=== PATIENT | female | born 1980 | race Caucasian/White ===

== ENCOUNTER 2017-10-04 15:50 | Emergency (ER) | payer OTHER, SELFPAY ==
[2017-10-04 15:51] VITALS: BP 151/83; PULSE 83; RESP 16; TEMP 37.2; O2SAT 100; BMI 45.9
--- NOTE | 2017-10-04 16:06 | RAD_ITS ---
STUDY: X-RAY CHEST REASON FOR EXAM: Female, 37 years old. Chest pain. TECHNIQUE: Single AP portable view of the chest. COMPARISON: None. FINDINGS: Monitoring devices. The lungs are clear and expanded. There is no demonstrated pleural abnormality. Normal size heart. Normal mediastinum and sonia. Normal visualized pulmonary arteries. Normal visualized aortic arch and descending thoracic aorta. Normal visualized thoracic spine. Normal visualized ribs, clavicles, and shoulders. There is no demonstrated abnormality of the visualized soft tissue structures of the upper abdomen. RAD/Chest 1 View (Portable) IMPRESSION: Normal x-ray examination of the chest. Electronically Signed: Chirag Don MD at 17:01 EST , Service support ,
--- NOTE | 2017-10-04 16:06 | EKG12_ITS ---
Test Reason : CP Blood Pressure : / mmHG Vent. Rate : 066 BPM Atrial Rate : 066 BPM P-R Int : 162 ms QRS Dur : 084 ms QT Int : 392 ms P-R-T Axes : 049 034 043 degrees QTc Int : 410 ms Normal sinus rhythm with sinus arrhythmia Normal ECG Confirmed by SASHA PECK, LENORA ([id number]), news videotape editor PATRIC WU ([id number]) on 10/06/2017 10:29:39 AM Referred By: BRAXTON Confirmed By:LENORA BAEZ MD
[2017-10-04 16:07] VITALS: O2SAT 99
[2017-10-04] MEDS: Ketorolac 30 MG/ML Syringe IV (16:16)
[2017-10-04 16:21] LABS: Absolute Lymphocyte Count 2.76 X10^3/ul (0.83-4.51); Absolute Neutrophil Count 4.9 X10^3/uL (2.0-7.7); Basophil# 0.07 X10^3/uL; Basophil% 0.8 % (0-1); Eosinophil# 0.17 X10^3/uL; Hematocrit 40.1 % (37-47); Hemoglobin 13.4 g/dl (12.0-15.0); Lymphocyte # 2.76 X10^3/ul (4.0); Lymphocyte % 32.4 % (19-41); Mean Corp Hgb Conc 33.4 g/gl (32-36); Mean Corpuscular Hgb 29.2 pg (27.0-32.0); Mean Corpuscular Volume 87.4 fL (81-99); Mean Platelet Vol. 10.7 fl (6.2-12.0); Monocyte# 0.61 X10^3/uL; Monocyte% 7.2 % (0-10); Neutrophil # 4.88 X10^3/uL (2.7-7.7); Neutrophil % 57.4 % (47-70); POSITIVE COUNT NO; POSITIVE DIFFERENTIAL NO; POSITIVE MORPHOLOGY NO; Platelet Count 296 K/mm3 (150-450); RBC Distribution Width SD 40.4 fl (35.1-43.9); Red Blood Count 4.59 M/mm3 (4.2-5.4); White Blood Count 8.5 K/mm3 (4.4-11.0)
--- NOTE | 2017-10-04 16:36 | ED.DCSUM_ITS ---
- ER Visit Summary Date of Service: 10/04/17 Chief Complaint: Chest pain History of Present Illness: The patient is a 37 F she reports she has chest pain again 2 days ago. The first day it was a constant pressure that was increased with laying flat. She reports that yesterday was intermittent and lasted hours at a time. It was not related to exertion. She reports today it has been constant since she began work at 8:00 this morning. 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 She had no pain while rushing around to get the kids off to school. Patient does describes it as a substernal pressure. Is 9 out of 10 at worst and 7 out of 10 currently. It is worsened by long conversations and sitting down. It is unchanged with exertion. Is relieved by standing up. There is no radiation. No associated nausea, vomiting, diaphoresis, or shortness of breath. Physical Examination: Vitals: Stable. Afebrile. General: Well-nourished and well-developed. Head: Normocephalic atraumatic. Neck: Supple, no lymphadenopathy. No JVD. Nontender. Cardiovascular: Regular rate and rhythm. No murmurs. Respiratory: No respiratory distress. Clear to auscultation bilaterally. Abdominal: Soft, nontender, nondistended, normal bowel sounds. No guarding, rebound, or peritoneal signs. Back: Nontender. Extremities: Nontender, no edema. Skin: Normal color, no rash. Neurologic: Alert and oriented ?3. Cranial nerves II through XII are intact. Normal strength and sensation. Psych: Normal affect. Test Results: EKG is sinus at 66 with no acute changes. CBC is normal. 7 is normal. test is negative. Troponin is negative. Emergency Department Course and Treatment: Patient had an IV placed. She is given a dose of Toradol IV. She is resting comfortably. Treatment Plan: The patient's pain is very atypical and her EV score is 0. I do not think that this is cardiac in etiology. She is a suitable candidate for further outpatient evaluation. She will be discharged instructions to follow- up Dr. Aguiar in 1-2 days. Return to the emergency department for any worsening symptoms. Disposition: To home in improved and stable condition. Impression: 1. Atypical chest pain. 2. EV score of 0. This note was generated with Dragon dictation software. It may contain incorrect words, spelling, and punctuation that were not noted in review of the chart prior to signing ED Disposition - Plan for ED Patient: Chief Complaint: Chest Pain Instructions: ED Chest Pain Atypical Unkn Cause Referrals: Maryjo Aguiar MD [Primary Care Provider] - 1-2 Days if not improving
[2017-10-04 16:43] LABS: Anion Gap 7 (5-15); BUN 14 mg/dL (7-18); BUN/Creat Ratio 13.9 RATIO (10-20); Calcium,Total 9.1 mg/dL (8.5-10.1); Chloride 103 mmol/L (98-107); Creatinine, Serum 1.01 mg/dL (0.55-1.02); EST Glomerular Filtration Rate 65 mL/min (>60); Est Glom Filt Rate - Afr Amer 79 mL/min (>60); Estimated Creatinine Clearance 67.96 ml/min; Glucose 96 mg/dL (74-106); Potassium 3.6 mmol/L (3.5-5.1); Sodium Level 139 mmol/L (136-145)
[2017-10-04 16:55] LABS: Pregnancy, Serum, hCG Quali. NEGATIVE Negative (0-9 Nonpreg)
[2017-10-04 17:18] VITALS: PULSE 55; RESP 17; O2SAT 95
== END 2017-10-04 17:20 | disposition home or self-care (01) ==
LOC: ED 16:22
PROVIDERS: Emergency Provider Emergency Medicine; Family Provider Internal Medicine; PCP Internal Medicine
DX: R07.89 Other chest pain (principal); Z72.0 Tobacco use
CPT/HCPCS: 71045; 80048; 84484; 84703; 85025; 93005; 96374; 99284; A4216

== ENCOUNTER → 2018-12-31 08:04 | Outpatient (CLI) | payer OTHER, SELFPAY ==
[2018-12-31 10:12] LABS: Absolute Lymphocyte Count 2.02 X10^3/ul (0.83-4.51); Absolute Neutrophil Count 4.4 X10^3/uL (2.0-7.7); Basophil# 0.04 X10^3/uL; Basophil% 0.6 % (0-1); Eosinophil# 0.17 X10^3/uL; Eosinophils% 2.4 % (0-5); Hematocrit 38.4 % (37-47); Hemoglobin 12.7 g/dl (12.0-15.0); Lymphocyte # 2.02 X10^3/ul (4.0); Lymphocyte % 28.4 % (19-41); Mean Corp Hgb Conc 33.1 g/gl (32-36); Mean Corpuscular Hgb 28.9 pg (27.0-32.0); Mean Corpuscular Volume 87.5 fL (81-99); Mean Platelet Vol. 10.6 fl (6.2-12.0); Monocyte# 0.46 X10^3/uL; Monocyte% 6.5 % (0-10); Neutrophil # 4.42 X10^3/uL (2.7-7.7); Platelet Count 257 K/mm3 (150-450); RBC Distribution Width CV 12.6 % (11.6-14.6); RBC Distribution Width SD 40.7 fl (35.1-43.9); Red Blood Count 4.39 M/mm3 (4.2-5.4); White Blood Count 7.1 K/mm3 (4.4-11.0)
[2018-12-31 10:13] LABS: POSITIVE COUNT NO; POSITIVE DIFFERENTIAL NO; POSITIVE MORPHOLOGY NO
[2018-12-31 10:42] LABS: ALB/GLOB Ratio 1.1 RATIO (0.9-2.4); AST(SGOT) 9 U/L (15-37); Alanine Aminotransfer ALT/SGPT 23 U/L (13-56); Albumin, Serum 3.6 g/dL (3.2-5.0); Alkaline Phosphatase 52 U/L (45-117); Anion Gap 9 (5-15); BUN 17 mg/dL (7-18); BUN/Creat Ratio 18.3 RATIO (10-20); Calcium,Total 8.3 mg/dL (8.5-10.1); Chloride 110 mmol/L (98-107); Cholesterol 140 mg/dL (200); Creatinine, Serum 0.93 mg/dL (0.55-1.02); EST Glomerular Filtration Rate 71 mL/min (>60); Est Glom Filt Rate - Afr Amer 86 mL/min (>60); Globulin 3.3 g/dL (2.2-4.2); Glucose 109 mg/dL (74-106); High Density Lipoprotein 45 mg/dL; Potassium 3.8 mmol/L (3.5-5.1); Protein, Total 6.9 g/dL (6.4-8.2); Sodium Level 141 mmol/L (136-145); Triglycerides 89 mg/dL; Very Low Density Lipoprotein 18 mg/dL (5-40)
[2018-12-31 14:07] LABS: Hemoglobin A1c 5.9 % (4.2-6.3)
== END ==
PROVIDERS: Family Provider Internal Medicine; PCP Internal Medicine; Visit Provider Family Medicine
DX: Z00.00 Encounter for general adult medical examination without abnormal findings (principal); R73.09 Other abnormal glucose
CPT/HCPCS: 36415; 80053; 80061; 83036; 85025

== ENCOUNTER → 2021-11-12 12:29 | Outpatient (CLI) | payer BC, SELFPAY ==
--- NOTE | 2021-11-12 12:36 | BI_ITS ---
MAMMOGRAPHY - BILATERAL SCREENING REASON FOR EXAM: Female, 41 years old. Routine annual screening examination. PERTINENT HISTORY: Grandmother with breast cancer. Aunt with breast cancer. TECHNIQUE: Digital bilateral breast emilia (3D mammographic acquisition) in the CC and MLO projections. 2-D mediolateral oblique (MLO) and craniocaudad (CC) views of both breasts were obtained. CAD: Full Field Digital Mammography with Computer Added Detection was performed. COMPARISON: None. Baseline examination. FINDINGS: Breast Composition: The breasts are heterogeneously dense, which may obscure small masses. There are no dominant masses or suspicious calcifications. Benign appearing bilateral axillary lymph nodes. No other significant abnormalities are identified. BI/SCRN MAMM (CAD)W/EMILIA BILAT IMPRESSION: Negative screening mammogram. Yearly followup mammogram recommended. (A) ASSESSMENT CATEGORY: BIRADS Category 2: Benign. A letter regarding these results will be sent to the patient by the facility within 30 days. Approximately 10% of breast cancers are not detected by mammography. A normal mammogram should not delay biopsy of a clinically suspicious abnormality. [id number] Electronically Signed: Jersey Hawley MD at 13:34 EDT ,
== END ==
PROVIDERS: PCP Internal Medicine; Visit Provider Nurse Practitioner Women's Health
DX: Z12.31 Encounter for screening mammogram for malignant neoplasm of breast (principal)
CPT/HCPCS: 77063; 77067

== ENCOUNTER 2022-08-24 16:29 | Emergency (ER) | payer BC, SELFPAY ==
[2022-08-24 16:31] VITALS: BP 109/61; PULSE 68; RESP 14; TEMP 36.1; O2SAT 99; BMI 34.1
--- NOTE | 2022-08-24 16:38 | ED.RN ---
PT DECIDED SHE WOULD GO TO HER DR TOMORROW.
== END 2022-08-24 16:38 | disposition left against medical advice (07) ==
LOC: ED 16:43
PROVIDERS: PCP Internal Medicine
DX: Z53.21 Procedure and treatment not carried out due to patient leaving prior to being seen by health care provider (principal)

== ENCOUNTER → 2022-08-26 | Outpatient (CLI) | payer BC, SELFPAY ==
[2022-08-26 16:51] LABS: HIV - WCH Non-Reactive (Nonreactive); Hepatitis B Surface Antibody Non-Reactive; Hepatitis B Surface Antigen Non-Reactive (Nonreactive); Hepatitis C Antibody Non-Reactive (Nonreactive)
== END | disposition home or self-care (01) ==
LOC: MTLAB 13:01
PROVIDERS: PCP Family Medicine; Referring Provider Family Medicine; Visit Provider Family Medicine
DX: Z00.00 Encounter for general adult medical examination without abnormal findings (principal); X58.XXXA Exposure to other specified factors, initial encounter
CPT/HCPCS: 36415; 86703; 86706; 86803; 87340

== ENCOUNTER → 2024-12-30 | Outpatient (CLI) | payer OTHER, SELFPAY ==
--- NOTE | 2024-12-30 13:09 | VDLE_ITS ---
Reason For Study Reason For Study: LLE Pain / Swelling RIGHT LEFT CFV is compressible, spontaneous, phasic, competent GSV is normal. and demonstrates normal augmentation. CFV is compressible, spontaneous, phasic, competent, Procedure and demonstrates normal augmentation. This is a venous duplex using B-mode, color flow and FV is compressible, spontaneous, phasic, competent spectral Doppler. and demonstrates normal augmentation. Exam performed in department. POP V is compressible, spontaneous, phasic, competent The exam was diagnostic. and demonstrates normal augmentation. A preliminary report was called and/or faxed to [facility] is compressible. [facility] office. PTV is compressible. LT PerV is compressible. VL/Venous Duplex US, Unilateral Interpretation Summary Deep veins of the left lower extremity are patent and compressible segmentally. There is no evidence of left lower extremity deep vein thrombosis. Valvular competence appears intact within the p roximal deep venous system on the left . The left great saphenous vein appears patent and compressible segmentally. The right common femoral vein is patent and compressible . Ordering Physician: Loi Tran Referring Physician: Loi Tran Performed By: Kaushik Sanchez, RVT
== END | disposition home or self-care (01) ==
PROVIDERS: PCP Family Medicine; Referring Provider Family Medicine; Visit Provider Family Medicine
DX: M79.89 Other specified soft tissue disorders (principal)
CPT/HCPCS: 93971

== ENCOUNTER → 2025-01-31 | Outpatient (CLI) | payer OTHER, SELFPAY ==
[2025-01-31 15:19] LABS: Absolute Lymphocyte Count 2.23 X10^3/uL (0.83-4.51); Absolute Neutrophil Count 4.1 X10^3/uL (2.0-7.7); Basophil# 0.07 X10^3/uL; Eosinophil# 0.18 X10^3/uL; Eosinophils% 2.6 % (0-5); Hematocrit 42.2 % (37-47); Hemoglobin 14.2 g/dL (12.0-15.0); Lymphocyte # 2.23 X10^3/ul (0.83-4.51); Lymphocyte % 31.7 % (19-41); Mean Corp Hgb Conc 33.6 g/dL (32-36); Mean Corpuscular Volume 92.1 fL (81-99); Mean Platelet Vol. 10.9 fl (6.2-12.0); Monocyte# 0.48 X10^3/uL; Monocyte% 6.8 % (0-10); NRBC Flagged by Analyzer 0 % (0-5); Neutrophil # 4.05 X10^3/uL (2.7-7.7); Neutrophil % 57.6 % (47-70); Platelet Count 292 K/mm3 (150-450); RBC Distribution Width CV 12.3 % (11.6-14.6); RBC Distribution Width SD 41.4 fl (35.1-43.9); Red Blood Count 4.58 M/mm3 (4.2-5.4)
[2025-01-31 16:45] LABS: Hemoglobin A1c 5.5 % (<=5.6)
[2025-01-31 17:25] LABS: Erythrocyte Sedimentation Rate 7 mm/hr (0-30)
[2025-01-31 17:43] LABS: ALB/GLOB Ratio 1.6 RATIO (0.9-2.4); AST(SGOT) 20 U/L (<=31); Alanine Aminotransfer ALT/SGPT 26 U/L (<=34); Albumin, Serum 4.3 g/dL (3.5-5.0); Alkaline Phosphatase 55 U/L (35-104); Anion Gap 12 (5-15); BUN 15 mg/dL (4-19); BUN/Creat Ratio 16.1 RATIO (10-20); Carbon Dioxide 20.6 mmol/L (21.0-32.0); Chloride 103 mmol/L (98-108); Creatinine, Serum 0.93 mg/dL (0.70-1.20); EST Glomerular Filtration Rate 77 (>60); Globulin 2.7 g/dL (2.2-4.2); Glucose 92 mg/dL (70-99); Sodium Level 136 mmol/L (133-145); Total Bilirubin 0.61 mg/dL (0.00-1.30); Vitamin D,25 Hydroxy 40.1 ng/mL (30-100)
[2025-01-31 17:44] LABS: Rheumatoid Factor < 10.0 IU/mL (<15)
--- OUTSIDE RECORDS SUMMARY | 2025-01-31 19:17 | XMS RPT_ITS | CCD ---
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 FINAL DIAGNOSIS y2lzrUCpEEGmjRRsGRor UolrbiCaYQBgrTBfH2Cz qwfjANzbTX3mLJ6roNiy xFHnbSNnLRAhBuKdl8zf s607mVDrl7fiYSKNhpbf tYr2qMphP20ap5M5Jkmz U23djJAbZCL0XNIeYKCz tAPrQGRyPTU4MZQipHYo I8jcUWEqFX4jezbuPWdb GPueLMXtqBK0PRBktBVu F2HdNRXcIIaiVXFthrc9 AxTtOx3vgCTliIwaXJew YXJkXHBsYWluXGZzMjAg I2fqpuyveOZwnHCsvzJu v4McCCF6K5fbrG1bCtye YXIgLSBFcGlkZXJtYWwg uB4xcGYmpA4uOFQ0t8Aj CAX6qGI9axFgIiUjtMDr GPLsqvRWGg0rxtIbOA9i Mp3iSOJ4SYXdxy7= [facility] Work Phone: Gross Description w4qfoYUuLTCtaIORBHX1 HTIwRF4esQlqkDn8hInw YVYcwvO0qFLkTYomo2hc OZH1r1iaftLLDwvxNLQb AK8aRWfiRRSlLG3fTwOc XGRlZmYxXHBhcGVydzEy BwAoFKVwwIAscQO7CALd RA1pkaexLNwpVOghNRNk ijE2KHQqaGMoM6RaPXXj VU6zhjrzYMA7YQJWWiyj Kk3ceGAfjWekHkAtMjWd DKIdCZUmVHOht7depfRY wduewJn6jG6YMOMaV4Ny VC5Xs0akXOQnbVDnWHE0 XTqvc7plRPlpOBQ6AWUv FHKpEHVfPE2XMpFnVOc0 Ybe2BGW4OhH6RLe7UAFP XFIjQTB6EIPfQDAuYMw1 OTkgXFxuaCBcXHQgMSBc JIQmDDdejcZ4e0qcVEUk jWEdDGE4RFhtv6ewCEmd PGR4ZQVvYqTkRUYoVU1W AsIpMGz8Jmu3TBP4QkF8 ZOo1ZGERPjXtBfIgPyTb IkZcCKDcLZr0QEv2URwW NdZxMRVeHzx3FNG3CkC9 AIA3HrLzYMQwIwYoQVOj RNYhKPcqgJSyLS1whBvb HAKrSH5OVNYwHVylBSQb LrObBY7eN6xehRylF4rs huklB2MwRVHyc8YrJQh7 cmNoXHBhciANClxwYXJk JY9DHIBwQYqsMTb8ddZu EINoSeRmAQMpV41wy1KU m8JgLP0QZGm9zqReaoLA GhzuxsNmNRJaO9XlypNl PJmcORAuwl6ieAsvNDta XEPpDVMbr1FgZK81NZPy DGnzwSD2yUZypIOuIZam RF38KF0yXTIqqQ9mKU4x QEP2XmK1gFYnBN67kvS3 qAWtyLVgpZDxf1EtzR5d EJWbLZY2FFNeZEU9HUQz EfNbxP1jICnvJXSaxT3r j8OvQrBdOGKjON1gunZ2 ctU9ILKjUK4arCTtFNy4 uAXcFRLttu7xrU2zXALi mPlbrTz1XLUgPIOpxKJr CYCfACGzpPMnd7TulE3r LQSeXGJ5ROCmFOCfyGjx WB1fFXJ6fJXfMNOhyZ0m On87pJWgSQTvrZ5qBlLT qUNog6GsE8tcGZ2bQB0q cyByZXNlbWJsZSBhIGN5 e0GjQAhkUS8mbREbpXD9 mHYcFQ1wBPzlOUDxUAJa tMOyHGksKMVqA3Dde66m EQN5tzEqRHIwTTwdEYN5 GF1nb78koDFrgiSrPP1w FOF9bjqpHlBeTrGbR32q oB0yJ2KvXREmc5HoVCly IM8onN6oXxUXWUPrdEWs k5KycKS2bHElAAWvC9Vw u88qaCTwk3YhkIn2rWRv FOjvIE1kSIEpUHJkLJK8 WF9aFUOofbDEMrhmQXNm MCyXah5ixzTkmSChqI1m kNibvnKmYSIrv6YiSSLv LUQrF0cchqXsVW8cITXk zU7nWfrpOHWyYZMHgDSk yHSaPBCoNzqdR3pudqZq OD4rRKXINZY1PGZ4AKvu BHJgCBvgyESpSN4GAAOs SiAbYWObA3aiIFXgZH1D RkZTIDExLzExLzIwMjQg YFJ1OQVpSE9RLclmrQbc YtYybFLpQbJ5NTIroCRi HNF2VN6nxLftRNQlO3Hx Z1KggcE0YABuowROTbdr UNVnLE0OTDRkUhVzBPs1 [facility] Work Phone: Performing Lab j7eiwBYoAGSgbLAzHjPw TLOyQYCsf8geQJMhrJWu ZzEwMzNcZnRuYmpcdWMx KONbWvPmb1giw707uFAk n4lnAQBeFgI9qQIeGZMc jXOmF511HYWkEHpjr2yb g7GlTNFhcTBeh8R5LTKO vnbxfOv2xDedA66zm0W4 AnrfQ1hkVCRaRBAdV4Yp CD6cXATsXls4SFH9CSR2 WCVdQFVoN3JiII1aGEBj sYLaIKs4b6hhiVhxXTAz TYZ1b9rzKJugvyXjXT2r ay9fkCg3w2hyaeZcFNJq LLJdmBMXOKMzH0GomGtb Mq3rdQu5bNjiFpszXTH5 Wpm2LK9hia77til7iQne UENxrflpRkZ9QGrsKIQs axkdFPb1LAapRUMmfYH2 MADpjHMjQ7HmDOztWN0x mzp4CYK1JWdsKQEhOoD8 NDBcaGVhZGVyeTcyMFxm k071ZZY7LxEdVO1oA4Qa t5C4kS6liCInXXUjhPPw McRsAFVbjb0ytNQrZVqc w9NzBUO6tkR3iLJeeXAb QFZzIH38Dfqhd5YeDsrd t8TvV57wfSW5RDgfs3yj ED1uBjC9gjOxAJhxb8sa mT6xAbX4SQevBP6nKP6b ERNbvJ5lpbexTTOeGkIj issaOLUheHwxxaEnBx8m bNrzWDI5WQbqG1gkwQ9v WqV1DLytY9wdjA3sGZp5 DPuzaZQ9FYQqxE8wKL3s tdvjw4niSQoqMTnxIVYe scI4ehSdTGXlkWQjZ0Uf dM1jLVAqKR9mnoqta4gs FZE2SXonUVQxNJX8QcIa BXDjx1Cavda8LhRzr2Nc jVAjDUhwC33fg795WCSg glSkY0nmuEHpidooqOJn ywquFGlmceV0HCHjVAEd YWluXGYxXGZzMjBcbGFu ZzEwMzNcaGljaFxmMVxk ItMpPULyCChlD2pqXgFx QnIkSSWIlODnlp8voSzp GTreyJYwxAOxpAW9sZ4j THQfiiQepw6qIIXtbEWM xJC5DXfhpaDtK8ivpihf RLJ3MSPfNOS3U7jwUFTN dmUsIENsZXZlbGFuZCBP ZEO7POT6SBZtPYRERENa JEC4YAC7KCDnRSShrNTe XHBhclxwYXJkXHBsYWlu PSVsZZJuCvAtiCdfaF9a HsBsShKqAExzMI2mVHWg I1dbjSCpWGYvMWCjE0om YyTyaY3rkJntQIkqKuKw ZnMyMFxsdHJjaCBMYWJv ceP5m9C4DNignASlazua MVxmczIwXGxhbmcxMDMz OIrxU4zcErZtARDmjFqy YZugj5OqSEJvKJIjNuPn HCncTBH9d9H5FKacbIEj ctAKGiDYGN0fnEUeiurd NW8ZHmaivQEclldeGZbo czIyXGxhbmcxMDMzXGhp M1rdCwLgGUAcvVpiPHvf b7JfSFVqKDUpDbYhaHZr fQ== [facility] Work Phone: [facility] Work Phone: TOROOVon 07-01-2024 CNOV Office Visit (SWS) MELANIE LEVY ([id number]) 1980 F Date Time Provider Department 07/01/24 3:00 PM KRYSTINA JACQUES During your visit today, we recorded the following information about you: Davonte Abarca RN 07/03/2024 4:19 PM Signed UNIVERSAL PROTOCOL / SAFETY CHECKLIST Procedure to be Performed: Excision of skin cyst of left breast Sign In: A Moment of CARE was completed. Personnel directly involved with the procedure wore the appropriate PPE (Personal Protective Equipment). No special equipment needed. Patient/Surrogate Stated/Verified: PATIENT VERIFIED(optional for EMERGENT procedures): Patient name, Date of , Relevant allergies, and The intended procedure Time Out Communication: Intended patient and procedure match the source documents. Consent documented and matches the intended procedure. No relevant labs, photos, and/or imaging studies were applicable for review. Correct side/site marked and visible. Medications required for procedure verified. No fire risk assessment and interventions applicable. No implant(s) inserted. Sign Out: SIGN OUT (optional for EMERGENT procedures): All specimen containers correctly labeled. No instruments, equipment or retained foreign bodies applicable. Post-procedure follow-up management communicated and Plan of Care Visit completed when applicable. DOMINIQUE Ellis Rhonda, RN 07/01/2024 3:17 PM Signed The following instructions are important for you related to your office visit today with the [facility]. Instructions After SKIN EXCISION-SUTURES You can remove the dressing in five-seven days days. You should keep the wound dry. If the dressing becomes wet, with water, please change it. You may take acetaminophen or ibuprofen, as needed, for pain. If the dressing becomes soaked or had significant drainage, the dressing should be changed. If there is minor bleeding from this skin edge, you should hold pressure on the incision until the bleeding stops. If there is continued bleeding, you should contact our office immediately. If the wound shows signs of redness, inflammation, or purulent drainage, you should contact our office immediately. The wound should not be immersed in a pool, bathtub, or even hot tub. We prefer to check the incision and remove the stitches in our office when ready. Please make an appointment to return to our office in 7 days. Please do not remove the stitches yourself without approval from our office. If you note any additional difficulties, questions, or concerns, you should contact our office immediately @ [phone] and ask to be transferred to the General Surgery department. Krystina Jacques MD 07/03/2024 4:19 PM Signed Crystal presents for excision of infected sebaceous cyst of left breast area. PROCEDURE NOTE: Description of procedure: After informed consent was obtained, patient was brought to the procedure room. Appropriate time out protocol was followed. Patient was placed in the supine position. The site of the lesion was then cleansed with a sterile surgical skin preparation. Appropriate sterile surgical drapes were placed. The skin and subcutaneous tissues at the site were then infiltrated with local anesthetic. A skin incision was made at the site in an elliptical fashion to entirely incorporate the lesion and its pore opening with a 15 blade scalpel. The incision was carried down to the subcutaneous tissues. Dissection was done to separate the skin lesion from the surrounding subcutaneous tissues. The lesion was excised sharply down to the subcutaneous tissues. The lesion was 2 cm in size. The tissue was then removed and placed in formalin to be forwarded to pathology for analysis. Hemostasis was controlled by pressure. The skin edges were then reapproximated with interrupted 3-0 nylon suture and 3-0 vicryl (placed subdermally) in a simple fashion. Sterile dressing was applied. Patient tolerated procedure well. PLAN: Wound care instructions given by clinic staff. Patient to follow up for nursing visit for removal of sutures in one weeks. Office will call with results of pathology. Patient to return to clinic if any signs/symptoms of infection/etc. Patient acknowledges the above. Allergies As of Date: 07/01/2024 Noted Allergy Reaction LATEX 05/23/2005 2 - Rash Date Reviewed: 07/01/2024 Reviewed by: Davonte Abarca RN - Fully Assessed Reason for Visit: Procedure [88] Cmt: Excision of skin cyst of left breast. Primary Visit Diagnosis:Sebaceous cyst [L72.3] Order(s):SURGICAL PATHOLOGY [[id number]] Order #: [id number]. #:[id number] Prescriptions as of 07/03/2024 - psyllium seed, with sugar, (FIBER ORAL) Take by mouth. - Phentermine HCl 37.5 mg tablet Take 1 tablet by mouth daily before break (more content not included)... Normal [facility] SURGICAL PATHOLOGYon CASE REPORT Normal [facility] Comment on above: Order Comment: Natalia garcia Type: TISSUE SPECIMEN Ordering Facility: [facility] Address: [address] [place] [address] Result Comment: Surg [facility] Pathology Report Case: [id number] Authorizing Provider: Krystina Jacques MD Collected: 07/01/2024 03:11 PM Ordering Location: General Surgery Received: 07/01/2024 04:02 PM Pathologist: Geo Lemon MD, PhD Specimen: Cyst, Skin, Sebaceous, left breast Performed By: #### S #### [facility] CLIA [id number] [address] [place], [place] [address] [place] [address] [place] CLINICAL HISTORY sebaceous cyst Normal [facility] Comment on above: Order Comment: Gonzálezi men Type: TISSUE SPECIMEN Ordering Facility: [facility] Address: [address] [place] [address] Result Comment: Comm ent: left breast Performed By: #### S #### [facility] CLIA [id number] [address] [place] [address] [place] FINAL DIAGNOSIS Normal [facility] Comment on above: Order Comment: Speci men Type: TISSUE SPECIMEN Ordering Facility: [facility] Address: [address] [place] [address] Result Comment: Skin , left breast, excision: - Epidermal inclusion cyst, ruptured. AF/bs 07/02/2024 Performed By: #### S #### [facility] CLIA [id number] [address] [place] [address] [place] FINAL PERFORMING LAB Normal [facility] Comment on above: Order Comment: Speci men Type: TISSUE SPECIMEN Ordering Facility: [facility] Address: [address] [place] [address] Result Comment: Diag nostic interpretation performed at [facility], [address] [place] [address] CLIA# [id number] Cardiology Tech: Amado Owusu M.D. Performed By: #### S #### [facility] CLIA [id number] [address] [place] [address] [place] GROSS DESCRIPTION Normal [facility] Comment on above: Order Comment: Speci men Type: TISSUE SPECIMEN Ordering Facility: [facility] Address: [address] [place] [address] Result Comment: A. C yst, Skin, Sebaceous Received in formalin is an unoriented elliptical segment of skin and subcutaneous tissue measuring 1.0 x 0.4 x 2.2 cm. The skin surface demonstrates an irregular krueger-pink slightly elevated area measuring 0.4 x 0.4 cm, and extends to both margins. The specimen does resemble a cyst, is not ruptured. The specimen is sectioned to reveal a krueger soft area measuring 1.5 cm in greatest dimension. A promotions representative section is submitted in one cassette. Gross examination performed at [facility], [facility], [place] [address] FFS 07/01/2024 10:11 PM Performed By: #### S #### [facility] CLIA [id number] [address] [place] [address] [id number] [id number] [facility] CNOVon 06-24-2024 CNOV Office Visit (GENSWS) MELANIE LEVY ([id number]) 1980 F Date Time Provider Department 06/24/24 4:00 PM KRYSTINA JACQUES During your visit today, we recorded the following information about you: Temperature 97.7 degrees Krystina Jacques MD 06/25/2024 2:36 PM Signed Melanie presents for follow up of infected sebaceous cyst of left breast area. The area is no longer erythematous and the inflammation/indurat ion has greatly decreased in size. Will schedule patient for office procedure. I have counseled patient as to risks of procedure, including but not limited to: infection, bleeding, scar tissue, injury to any blood vessels/nerves, cosmetic deformity, complications of anesthesia - she understands and agrees to proceed. Allergies As of Date: 06/24/2024 Noted Allergy Reaction LATEX 05/23/2005 2 - Rash Date Reviewed: 06/24/2024 Reviewed by: Akanksha Doyle, DOMINIQUE - Fully Assessed Reason for Visit: Follow Up [171] Cmt: Left breast infected sebaceous cyst Primary Visit Diagnosis:Infected sebaceous cyst [L72.3, L08.9] Prescriptions as of 06/25/2024 - psyllium seed, with sugar, (FIBER ORAL) Take by mouth. - Phentermine HCl 37.5 mg tablet Take 1 tablet by mouth daily before breakfast for 90 days. - levonorgestrel (MIRENA) 21 mcg/24 hr (8 yrs) 52 mg IUD 1 Each by INTRAUTERINE route as directed. - metFORMIN ER (GLUCOPHAGE XR) 500 mg 24 hr tablet Take 2 tablets by mouth daily with dinner. Problem List As Of Date 06/24/2024 Noted Resolved Intractable migraine without aura and without s*07/22/2005 Class 2 obesity with body mass index (BMI) of 3*11/07/2017 Prediabetes [R73.03] 2020 Disposition: Return in about 1 week (around 07/01/2024). Follow-up and Disposition History for Encounter Date Provider Department Center 06/24/2024 [id number] JACQUES Randall Bernardo Encounter Status:Closed by KRYSTINA JACQUES on 06/25/24 [facility] CNOVon 06-17-2024 CNOV Office Visit (KELLY) MELANIE LEVY ([id number]) 1980 F Date Time Provider Department 06/17/24 4:00 PM KRYSTINA JACQUES During your visit today, we recorded the following information about you: Pulse Respiration Blood pressure Weight 70/minute 16/minute 112/76 103.4 kg Height 1.651 m Krystina Jacques MD 06/19/2024 3:40 PM Signed Melanie Levy 1980 CHIEF COMPLAINT: Follow Up HPI: The patient is a 43 year old female here for evaluation of infected sebaceous cyst of left breast. The patient states that the area is much less painful. It has decreased in size at least by half. It also appears less erythematous. Patient reports no drainage. PAST MEDICAL HISTORY Diagnosis Date Migraine without aura, without mention of intractable migraine without mention of status migrainosus 07/22/2005 Prediabetes 2020 PAST SURGICAL HISTORY Procedure Laterality Date LAPAROSCOPY SURG CHOLECYSTECTOMY 08/21/1998 Cholecystectomy, lap MIRENA IUD 04/24/2024 Insertion Current Outpatient Medications Medication Sig psyllium seed, with sugar, (FIBER ORAL) Take by mouth. amoxicillin-clavulan ate potassium (AUGMENTIN) 875-125 mg per tablet Take 1 tablet by mouth two times a day for 10 days. Phentermine HCl 37.5 mg tablet Take 1 tablet by mouth daily before breakfast for 90 days. levonorgestrel (MIRENA) 21 mcg/24 hr (8 yrs) 52 mg IUD 1 Each by INTRAUTERINE route as directed. metFORMIN ER (GLUCOPHAGE XR) 500 mg 24 hr tablet Take 2 tablets by mouth daily with dinner. No current facility-administere d medications for this visit. ALLERGIES: Latex REVIEW OF SYSTEMS: Denies fevers PHYSICAL EXAMINATION: General: The patient is 43 year old female, well nourished, well hydrated in no acute distress. The patient is oriented to time, place, and person. VITALS: Blood pressure 112/76, pulse 70, resp. rate 16, height 165.1 cm (5' 5), weight 103.4 kg (228 lb), SpO2 99%. Body mass index is 37.94 kg/m?. Left breast - skin lesion with no erythema and no drainage - much decreased in size Assessment IMPRESSION: infected sebaceous cyst - resolving infection PLAN: I have discussed the above with the patient. Will assess lesion again in a week. If infected has abated, will schedule for office surgery for excision of sebaceous cyst. No further antibiotics warranted. Patient acknowledges the above. I have answered all questions to the patient?s satisfaction and the patient has no further questions. I have confirmed and edited as necessary, the PFSH and ROS obtained by others. . Diagnoses: (L72.3, L08.9) Infected sebaceous cyst (primary encounter diagnosis) I spent a total of 15 minutes on the date of the service which included preparing to see the patient with review of any pertinent laboratory studies/radiological imaging/medical records, qbgt-hv-jlex patient care, obtaining oral medical history from the patient in this encounter, performing a medically appropriate examination, counseling and educating the patient/family/careg iver, and completing appropriate medical documentation. Krystina Jacques MD Allergies As of Date: 06/17/2024 Noted Allergy Reaction LATEX 05/23/2005 2 - Rash Date Reviewed: 06/17/2024 Reviewed by: Devi Salinas RN - Fully Assessed Reason for Visit: Follow Up [171] Primary Visit Diagnosis:Infected sebaceous cyst [L72.3, L08.9] Prescriptions as of 06/19/2024 - psyllium seed, with sugar, (FIBER ORAL) Take by mouth. - amoxicillin-clavulan ate potassium (AUGMENTIN) 875-125 mg per tablet Take 1 tablet by mouth two times a day for 10 days. - Phentermine HCl 37.5 mg tablet Take 1 tablet by mouth daily before breakfast for 90 days. - levonorgestrel (MIRENA) 21 mcg/24 hr (8 yrs) 52 mg IUD 1 Each by INTRAUTERINE route as directed. - metFORMIN ER (GLUCOPHAGE XR) 500 mg 24 hr tablet Take 2 tablets by mouth daily with dinner. Problem List As Of Date 06/17/2024 Noted Resolved Intractable migraine without aura and without s*07/22/2005 Class 2 obesity with body mass index (BMI) of 3*11/07/2017 Prediabetes [R73.03] 2020 Disposition: Return in about 1 week (around 06/24/2024). Follow-up and Disposition History for Encounter Date Provider Department Center 06/17/2024 [id number] JACQUES Encounter Status:Closed by KRYSTINA JACQUES on 06/19/24 [facility] CNOVon 06-10-2024 CNOV Office Visit (KELLY) MELANIE LEVY ([id number]) 1980 F Date Time Provider Department 06/10/24 10:45 AM KRYSTINA JACQUES During your visit today, we recorded the following information about you: Temperature Pulse Blood pressure Weight 97.4 degrees 82/minute 106/69 103.3 kg Height 1.651 m Davonte Abarca RN 06/10/2024 10:47 AM Signed REVIEW OF SYSTEMS: General: The patient denies fatigue, denies weight loss, denies weight gain, denies feeling hot, and denies feelings of cold. Eyes: The patient denies glaucoma, denies eye injury/surgery, wears glasses or contacts. Ear/Nose/Throat: The patient NOTES allergies, denies hayfever, denies ear infections, and denies bloody noses. Cardiovascular: The patient denies chest pain, denies heart disease, denies high blood pressure,denies cardiac stent, denies prior heart attack, denies irregular heart beat, denies high cholesterol, denies poor circulation, denies heart failure, other cardiac issues, denies claudication, denies cold feet, denies peripheral arterial stent. Respiratory: The patient denies tuberculosis, denies pneumonia, denies frequent cough, denies pulmonary embolism, denies shortness of breath, and denies coughing up blood. Gastrointestinal: The patient denies difficulty swallowing, denies acid reflux, denies ulcers, denies vomiting, denies jaundice/hepatitis, denies gallbladder problems, denies black or tarry stools, denies hemorrhoids, denies bleeding from rectum, denies diverticulitis, denies constipation, denies diarrhea, denies loss of stool control, and denies hernias. Kidney/Bladder: The patient denies kidney stones, denies urine infections, and denies bloody urine. Skin: The patient denies a history of skin cancer, denies bleeding/changing moles, and denies a history of skin rash. Neurologic: The patient denies a history of epilepsy/convulsions , NOTES headaches, denies head/spinal injuries, and denies stroke/TIA. Psychiatric: The patient denies psychiatric medications, denies depression, and denies voices, denies substance abuse. Endocrine: The patient denies thyroid disorders, NOTES diabetes, and denies hormonal problems. Hematologic: The patient denies a history of bruising, denies bleeding, and denies anemia, denies blood clots. Infections: The patient denies a history of measles and mumps, denies rheumatic fever, and denies sexually transmitted diseases. Musculoskeletal: The patient denies back pain/injury, denies back problems, denies sciatica, denies knee/foot trouble, denies arthritis, or denies gout. When was patient's last Mammogram screening? 04/24/2024, 06/07/2024 Last Colonoscopy: None DOMINIQUE Ellis, Krystina Basilio MD 06/11/2024 3:03 PM Signed Melanie Maricarmen Levy 1980 REFERRING PHYSICIAN: Marty Patterson APRN.BE[employer] CHIEF COMPLAINT: Consult (Left breast abscess vs. Cyst. ) HPI: The patient is a 43 year old female presents with left breast superficial abscess. She was noted to have a sebaceous cyst in the area by mammograms/US of left breast in April of this year. Around 06/05/2024, she noted increasing pain/swelling/rednes s in the area. She notes no drainage. She was started on Keflex and notes slightly improved symptoms. She denies fevers. She denies diabetes, but admits to cigarettes use. PAST MEDICAL HISTORY Diagnosis Date Migraine without aura, without mention of intractable migraine without mention of status migrainosus 07/22/2005 Prediabetes 2020 PAST SURGICAL HISTORY Procedure Laterality Date LAPAROSCOPY SURG CHOLECYSTECTOMY 08/21/1998 Cholecystectomy, lap MIRENA IUD 04/24/2024 Insertion Current Outpatient Medications Medication Sig cephALEXin (KEFLEX) 500 mg capsule Take 1 capsule by mouth four times daily for 7 days. Phentermine HCl 37.5 mg tablet Take 1 tablet by mouth daily before breakfast for 90 days. levonorgestrel (MIRENA) 21 mcg/24 hr (8 yrs) 52 mg IUD 1 Each by INTRAUTERINE route as directed. metFORMIN ER (GLUCOPHAGE XR) 500 mg 24 hr tablet Take 2 tablets by mouth daily with dinner. No current facility-administere d medications for this visit. ALLERGIES: Latex PERSONAL HISTORY: Social History Tobacco Use Smoking status: Every Day Current packs/day: 0.00 Types: Cigarettes Last attempt to quit: 10/16/2016 Years since quittin.6 Smokeless tobacco: Never Tobacco comments: one pack a week/ about 8 per day. Vaping Use Vaping status: Former Substances: Nicotine, Flavoring Devices: Pre-filled or refillable cartridge Substance Use Topics Alcohol use: Yes Alcohol/week: 3.0 standard drinks of alcohol Types: 2 Cans of beer, 1 Shots of liquor per week Drug use: Never FAMILY HISTORY Problem Relation Age of Onset Obesity Mother other (dysplastic nerves [Other]) Father and one sister Obesity Father Obesi (more content not included)... Normal [facility] CNOVon 06-07-2024 CNOV Office Visit (OBGYWM) MELANIE LEVY ([id number]) 1980 F Date Time Provider Department 06/07/24 9:15 AM MARTY PATTERSON OBCESARWOmi During your visit today, we recorded the following information about you: Pulse Respiration Blood pressure Weight 88/minute 14/minute 110/72 100.7 kg Marty Patterson APRN.BEER MAKER 06/07/2024 10:03 AM Signed Linen Room Supervisor offered: Patient declines. Melanie Levy presents today for IUD check. She had a Mirena placed on 04/24/2024. She has had spotting and cramping since placement. Her cramping is sometimes as severe as a 7/10. She also notes a breast lump today that she's concerned about. She has breast imaging on 04/24/24 for it. Ultrasound showed: The 0.8 cm x 0.6 cm x 0.6 cm oval lesion within the skin of the left breast resembles a sebaceous cyst and is benign. The cyst resolved, but then resurfaced 2 days ago. It is painful and red. 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 As applicable, any other physician, advance practice provider, medical student, or other health professional student that will be observing or involved in the sensitive examination for educational or training purposes was discussed with the Patient or Authorized Superintendent Refuse Disposal. The Patient or Authorized Superintendent Refuse Disposal has agreed to proceed with the sensitive examination. (Sensitive examination includes inspection and/or palpation of the breasts, pelvis, prostate and anorectal regions). PHYSICAL EXAMINATION: BP 110/72 Pulse 88 Resp 14 Wt 222 lb (100.7kg) SpO2 96% ABDOMEN:soft, non-tender, no masses, no hepatosplenomegaly, and no lymphadenopathy EXTERNAL GENITALIA: Normal genitalia and Bartholins, Urethra, Sken'e normal CERVIX: smooth, no lesions. IUD strings visible. UTERUS: normal size, regular, non-tender, and freely mobile ADNEXA: negative for tenderness or masses BREAST: + 4 cm erythematous firm lump to inner left breast, warm, edematous IMPRESSION/PLAN: IUD likely correctly positioned. With severe cramping at times, recommend pelvic ultrasound to confirm. Ordered. Breast abscess - ICD9: 611.0, ICD10: N61.1 - Patient is going out of town to [place] this afternoon - Discussed signs of worsening infection: increasing redness, swelling, pain, warmth - recommend going to ER should this occur - Recommend going to ER with fever or chills - Alternative Tylenol and Ibuprofen for pain, warm compresses - Rx for Keflex sent - Breast imaging ordered, follow up with general surgery - Keep area clean and dry - Discussed consideration of going to ER today. Patient declines. Recommend watching area closely and to go to nearest ER in [place] with worsening signs or symptoms. Marty Patterson APRN.IBIS Medical Decision Making: Problems: Low: Acute, uncomplicated illness or injury and 2+ self-limited or minor problems Data: Unique test(s) ordered: 3+ Risk: Low: Low risk from testing/treatment Moderate: Drug management Medical Decision Making Level: 4 - Moderate Francisca Christopher LPN 06/07/2024 9:17 AM Signed 96 Allergies As of Date: 06/07/2024 Noted Allergy Reaction LATEX 05/23/2005 2 - Rash Date Reviewed: 06/07/2024 Reviewed by: Marty Patterson APRN.BEER MAKER - Fully Assessed Primary Visit Diagnosis:Surveillan ce of previously prescribed intrauterine contraceptive device [Z30.431] Other Visit Diagnosis:Breast abscess [N61.1] Order(s):PELVIC US WHI [5081231] Order #: [id number]: 1 FUTURE MICHAEL DIAGNOSTIC LEFT [2233162] Order #: [id number] FUTURE US BREAST LTD LEFT [[id number]] Order #: [id number] FUTURE CONSULT TO GENERAL SURGERY [9011] Order #: [id number]: 1 FUTURE cephALEXin (KEFLEX) 500 mg capsuleTake 1 capsule by mouth four times daily for 7 days.Disp: 28 capsuleRfl: 0 Prescriptions as of 06/07/2024 - cephALEXin (KEFLEX) 500 mg capsule Take 1 capsule by mouth four times daily for 7 days. - Phentermine HCl 37.5 mg tablet Take 1 tablet by mouth daily before breakfast for 90 days. - levonorgestrel (MIRENA) 21 mcg/24 hr (8 yrs) 52 mg IUD 1 Each by INTRAUTERINE route as directed. - metFORMIN ER (GLUCOPHAGE XR) 500 mg 24 hr tablet Take 2 tablets by mouth daily with dinner. Problem List As Of Date 06/07/2024 Noted Resolved Intractable migraine without aura and without s*07/22/2005 Class 2 obesity with body mass index (BMI) of 3*11/07/2017 Prediabetes [R73.03] 2020 Visit Notes: >> Francisca Christopher LPN MonJun 07, 2024 9:16 AM Status: Signed 96 Prescriptions ordered this encounter Disp Refills Start End AMOXICILLIN 875 MG-POTASSIUM CLAVULA* 14 t* 0 06/07/2024 06/07/2024 Route: ORAL Sig: Take 1 tablet by mouth two times a day for 7 days. FOR 7 DAYS. CEPHALEXIN 500 MG CAPSULE 28 c* 0 06/07/2024 06/14/2024 Route: ORAL Sig: Take 1 capsule by mouth fou (more content not included)... Normal [facility] CNOVon 05-23-2024 CNOV Office Visit (JESUS MANUELM) MELANIE LEVY ([id number]) 1980 F Date Time Provider Department 05/23/24 2:00 PM SARA BERGERON During your visit today, we recorded the following information about you: Pulse Blood pressure Weight 72/minute 122/74 103.9 kg Sara Bergeron APRN.BEER MAKER 05/23/2024 8:27 PM Signed Some documentation from previous visit of 04/03/2024 was copied and pasted, documentation has been reviewed and edited as necessary for today's visit. Patient Summary: Melanie is a 43 year old Female who presents for follow-up evaluation of obesity/weight management to treat and prevent related co-morbidities. In our previous visits we have discussed lifestyle intervention including a nutrition recommendations and physical activity optimization. Her last office visit was 1.5 months ago. Assessment/plan from last visit: -Metformin ER 500 mg - 1 gm with dinner Interval History PT specifies the following items as new or significant updates since the last appointment: - is aware that she is eating smaller portions and less snacking after dinner Weight loss since last vist: 2 lb Date: Weight: BMI: Medications: 05/23/2024 229 lb 39.31 phentermine 37.5 04/03/2024 229 lb 39.31 metformin ER 1 gm 02/15/2024 231 lb 39.44 metformin ER 500 mg 01/16/2024 228 lb 38.93 WC: 42 in 5% weight loss = 217 lbs, 10% weight loss = 206 lbs Anti-obesity medications: metformin Benefit:less hunger, a little increased fullness Adverse effects: none Weight promoting medications: none Previous Diet (initial appointment): Low carb during the work week. WE - up late morning. Lunch first meal but same. Awake - 0515 0600 Diet Coke B - 8-9 am meat and cheese snacks or jerky or occasionally PB crackers S - none L - 1200 meat and cheese with raw veg or salad with meat/Ranch dressing S - no D - 6-8 pm Salad with meat or grilled chicken and broccoli or pizza rolls or chicken nuggets if nothing prepared or easy to prepare Eats out on WE - Nauruan, pizza, Citizen Of [place] S - occasional 8-10 pm chips/dip or popcorn Fluids - Diet Coke, occasional water. Alcohol one WE night - whiskey or coconut rum or cider beer Bedtime - Quality of diet: 24hr recall suggests somewhat healthy diet. Characterization of diet:Structured, excessive cravings, and evening snacking. 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:lack of satiety, mindlessness , and boredom Eating Disorder no Cravings: chips and dip Dietary changes: [id number] B - 9 am 30 gm protein shake WE - SKIP S - occasionally almonds or cheese L - 12-1 pm 30 gm protein shake or meat cheese, raw veg with Ranch or WE left overs protein with vegetables, usually raw or steamed, sometimes small amount rice or potato S - none D - [id number] fresh protein with salad or low-carb veg/sometimes baked potato/small amount pasta Eating out - Nauruan grilled chicken/shrimp with lettuce, sour cream, chips and salsa or burger with 1/2 bun or protein with side salad with Ranch and sometimes 1/2 baked potato with skin S - none Fluids - Diet Coke, occasional water. 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 no Work-related activity:Sedentary. Gym Membership: no Activity Tracker: yes Stress: increased with traveling for work during April. May should be more calm. Sleep: varies Duration: 4 hrs once a week - 8 hours. FISH NO ; CPAP NO Estimated Creatinine Clearance: 98.9 mL/min (based on SCr of 0.85 mg/dL). PAST MEDICAL HISTORY Diagnosis Date Migraine without aura, without mention of intractable migraine without mention of status migrainosus 07/22/2005 Prediabetes 2020 Current Outpatient Medications Medication Sig Dispense Refill levonorgestrel (MIRENA) 21 mcg/24 hr (8 yrs) 52 mg IUD 1 Each by INTRAUTERINE route as directed. 1 Each 0 metFORMIN ER (GLUCOPHAGE XR) 500 mg 24 hr tablet Take 2 tablets by mouth daily with dinner. 180 tablet 1 No current facility-administere d medications for this visit. 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 Last 14 BP Last 14 Encounter BP Readings: Date: BP: 05/23/2024 122/74 04/24/2024 106/76 04/03/2024 114/62 03/15/2024 108/64 02/15/2024 112/72 01/16/2024 104/68 12/04/2022 122/70 10/04/2017 110/64 11/14/2016 116/62 07/26/2016 110/68 11/05/2010 80/40 09/04/2010 84/60 07/29/2008 110/70 09/13/2007 104/56 P (more content not included)... 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 Melanie presents today for IUD insertion for contraception. No LMP recorded. (Menstrual status: Drug Induced Amenorrhea). GC/chlamydia: Negative on 03/15/24 test: negative Side effects including irregular bleeding were discussed with the patient. The patient understands that it should be removed in 8 years or sooner if the patient desires a . IUD source: office provided [facility]: [id number] IUD lot: [id number] Exp date: 03/2026 UNIVERSAL PROTOCOL / SAFETY CHECKLIST Procedure to be Performed: Mirena Insertion Sign In: A Moment of CARE was completed. Personnel directly involved with the procedure wore the appropriate PPE (Personal Protective Equipment). Patient/Surrogate Stated/Verified: PATIENT VERIFIED(optional for EMERGENT procedures): Patient name, Date of , Relevant allergies, and The intended procedure Time Out Communication: Intended patient and procedure match the source documents. Consent documented and matches the intended procedure. Sign Out: SIGN OUT (optional for EMERGENT procedures): No specimen collected. All instruments, equipment, possible retained foreign bodies accounted for. Post-procedure follow-up management communicated and Plan of Care Visit completed when applicable. The cervix was prepped with betadine. The uterus sounded to 9 cm and the uterus is Anteverted. Using sterile technique, the first Mirena IUD was inserted and immediately expelled. A second Mirena IUD was inserted without difficulty and the string was cut to 3 cm from the external os of the cervix. Patient tolerated procedure well. PLAN: Patient was advised to observe for signs and symptoms of infection including but not limited to fever, malodorous vaginal discharge and/or pain. The patient was told to check the string monthly for accurate placement. Bleeding expectations were reviewed. Follow up in one month. Marty Patterson APRN.Sirisha Huynh LPN 04/24/2024 3:32 PM Signed POST IUD INSTRUCTIONS You may have irregular bleeding during the first 3 months of use. You may have mild-severe cramping for the next 48 hours. You may use over the counter medication (Motrin, Tylenol) as needed. Your IUD must be removed or replaced based on the following table: IUD Type Removed or replaced within: Shantelle 3 years Kyleena 5 years Mirena 8 years Liletta 8 years Paragard 10 years Call the office for signs/symptoms of infection such as severe cramping, fever, or unusual bleeding. Check for string placement as instructed by your doctor. If you have any additional questions, please contact the office. Referring Provider: SARA BERGERON [[id number]] Allergies As of Date: 04/24/2024 Noted Allergy Reaction LATEX 05/23/2005 2 - Rash Date Reviewed: 04/24/2024 Reviewed by: Marty Patterson APRN.BEER MAKER - Fully Assessed Reason for Visit: Insertion Of IUD [291] Primary Visit Diagnosis:Encounter for IUD insertion [Z30.430] Order(s):[] levonorgestrel 21 mcg/24 hr (8 yrs) 52 mg 1 Each intrauterine device (MIRENA)Disp: Rfl: levonorgestrel (MIRENA) 21 mcg/24 hr (8 yrs) 52 mg IUD1 Each by INTRAUTERINE route as directed.Disp: 1 EachRfl: 0 UA DIP,URINE HCG (POC) [9048612] Order #: [id number]. #:[id number] Prescriptions as of 04/24/2024 - levonorgestrel (MIRENA) 21 mcg/24 hr (8 yrs) 52 mg IUD 1 Each by INTRAUTERINE route as directed. - metFORMIN ER (GLUCOPHAGE XR) 500 mg 24 hr tablet Take 2 tablets by mouth daily with dinner. Problem List As Of Date 04/24/2024 Noted Resolved Intractable migraine without aura and without s*07/22/2005 Class 2 obesity with body mass index (BMI) of 3*11/07/2017 Prediabetes [R73.03] 2020 Other instructions from your clinician: POST IUD INSTRUCTIONS You may have irregular bleeding during the first 3 months of use. You may have mild-severe cramping for the next 48 hours. You may use over the counter medication (Motrin, Tylenol) as needed. Your IUD must be removed or replaced based on the following table: IUD Type Removed or replaced within: Shantelle 3 years Kyleena 5 years Mirena 8 years Liletta 8 years Paragard 10 years Call the office for signs/symptoms of infection such as severe cramping, fever, or unusual bleeding. Check for string placement as instructed by your doctor. If you have any additional questions, please contact the office. Prescriptions ordered this encounter Disp Refills Start End LEVONORGESTREL 21 MCG/24 HR (UP TO 8* 04/24/2024 04/24/20 (more content not included)... Normal [facility] DBT Breast - bilateral diagn ostic for implanton 04-24-2024 * * *Final Report* * * DATE OF EXAM: Apr 24 2024 3:00PM WRW 0627 - [facility] MARGARETH W EMILIA JOHN PAUL / PROCEDURE REASON: Mass of upper inner quadrant of left breast * * * * Physician Interpretation * * * * RESULT: #[id number] - [facility] MARGARETH W EMILIA JOHN PAUL BILATERAL DIGITAL DIAGNOSTIC MAMMOGRAM TOMOSYNTHESIS WITH CAD: 04/24/2024 HISTORY: Mass Of Upper Inner Quadrant Of Left Breast/ thickened area by cleavalge left medial, not painful, has decreased in prominence /priors available for comparison. RESULT: TECHNIQUE: The study was acquired using full field digital technology and interpreted from soft copy. Digital Breast Tomosynthesis (DBT) images were obtained and used to assist in the interpretation of this examination. Current study was also evaluated with a Computer Aided Detection (CAD). No prior exams were available for comparison. The breasts are heterogeneously dense, which may obscure small masses. There is an oval asymmetry in the left breast middle depth medial region seen on the craniocaudal view only. This correlates as palpated. No other significant masses, calcifications, or other findings are seen in either breast. DIVISION OF RADIOLOGY Provider, [facility] - 04/24/2024 * * *Final Report* * * DATE OF EXAM: Apr 24 2024 3:00PM WRW 0627 - [facility] ANTONG W EMILIA JOHN PAUL / PROCEDURE REASON: Mass of upper inner quadrant of left breast * * * * Physician Interpretation * * * * RESULT: #[id number] - [facility] DIAG W EMILIA JOHN PAUL BILATERAL DIGITAL DIAGNOSTIC MAMMOGRAM TOMOSYNTHESIS WITH CAD: 04/24/2024 HISTORY: Mass Of Upper Inner Quadrant Of Left Breast/ thickened area by cleavalge left medial, not painful, has decreased in prominence /priors available for comparison. RESULT: TECHNIQUE: The study was acquired using full field digital technology and interpreted from soft copy. Digital Breast Tomosynthesis (DBT) images were obtained and used to assist in the interpretation of this examination. Current study was also evaluated with a Computer Aided Detection (CAD). No prior exams were available for comparison. The breasts are heterogeneously dense, which may obscure small masses. There is an oval asymmetry in the left breast middle depth medial region seen on the craniocaudal view only. This correlates as palpated. No other significant masses, calcifications, or other findings are seen in either breast. IMPRESSION IMPRESSION: INCOMPLETE: NEED ADDITIONAL IMAGING EVALUATION The oval asymmetry in the left breast is indeterminate. An ultrasound is recommended. Huseyin corona/juan:04/24/2024 15:17:51 Gear Design Engineer(s): RT Clint(R)(M), [facility] Mammogram BI-RADS: Category 0: Incomplete: Need Additional Imaging Evaluation Multiple national specialty organizations have released breast cancer screening guidelines for women at average risk for developing breast cancer - guidelines that are based on both evidence and opinion, yet differ on when to start and how often to screen for breast cancer. With representation from Breast Imaging, Internal Medicine, Women's Health, Family Medicine, and Medical/Surgical Oncology, the [facility] has carefully reviewed the data and reached the following consensus: 1) All women should engage in shared decision-making with their providers to decide when to start and how often to screen; 2) All women should have the opportunity to start screening mammography at age 40; 3) For women ages 45-55, we recommend annual screening mammograms; 4) For women ages 55 and over, we support both the transition from an annual to a biennial interval if this aligns more with patient's values and preferences, or continuation with annual screening; 5) All women should discuss with their providers when to stop screening mammograms. Civil Cad Designer: Juan Transcribe Date/Time: Apr 24 2024 2:31P Dictated by: HUSEYIN RIZO MD This examination was interpreted and the report reviewed and electronically signed by: HUSEYIN RIZO MD on Apr 24 2024 3:17PM EST [facility] DBT Breast - bilateral diagn ostic for implantOrdered By: [facility] Provider on 04-24-2024 [facility] DIAG W EMILIA BILon 2023 MICHAEL DIAG W EMILIA JOHN PAUL * * *Final Report* * * DATE OF EXAM: Apr 24 2024 3:00PM WRW 0627 - MICHAEL DIAG W EMILIA JOHN PAUL / PROCEDURE REASON: Mass of upper inner quadrant of left breast * * * * Physician Interpretation * * * * RESULT: #[id number] - [facility] DIAG W EMILIA JOHN PAUL BILATERAL DIGITAL DIAGNOSTIC MAMMOGRAM TOMOSYNTHESIS WITH CAD: 04/24/2024 HISTORY: Mass Of Upper Inner Quadrant Of Left Breast/ thickened area by cleavalge left medial, not painful, has decreased in prominence /priors available for comparison. RESULT: TECHNIQUE: The study was acquired using full field digital technology and interpreted from soft copy. Digital Breast Tomosynthesis (DBT) images were obtained and used to assist in the interpretation of this examination. Current study was also evaluated with a Computer Aided Detection (CAD). No prior exams were available for comparison. The breasts are heterogeneously dense, which may obscure small masses. There is an oval asymmetry in the left breast middle depth medial region seen on the craniocaudal view only. This correlates as palpated. No other significant masses, calcifications, or other findings are seen in either breast. IMPRESSION: INCOMPLETE: NEED ADDITIONAL IMAGING EVALUATION The oval asymmetry in the left breast is indeterminate. An ultrasound is recommended. Huseyin corona/juan:04/24/2024 15:17:51 Gear Design Engineer(s): Maggy Snider RT(R)(M), [facility] Mammogram BI-RADS: Category 0: Incomplete: Need Additional Imaging Evaluation Multiple national specialty organizations have released breast cancer screening guidelines for women at average risk for developing breast cancer - guidelines that are based on both evidence and opinion, yet differ on when to start and how often to screen for breast cancer. With representation from Breast Imaging, Internal Medicine, Women's Health, Family Medicine, and Medical/Surgical Oncology, the [facility] has carefully reviewed the data and reached the following consensus: 1) All women should engage in shared decision-making with their providers to decide when to start and how often to screen; 2) All women should have the opportunity to start screening mammography at age 40; 3) For women ages 45-55, we recommend annual screening mammograms; 4) For women ages 55 and over, we support both the transition from an annual to a biennial interval if this aligns more with patient's values and preferences, or continuation with annual screening; 5) All women should discuss with their providers when to stop screening mammograms. Civil Cad Designer: Juan Transcribe Date/Time: Apr 24 2024 2:31P Dictated by: HUSEYIN RIZO MD This examination was interpreted and the report reviewed and electronically signed by: HUSEYIN RIZO MD on Apr 24 2024 3:17PM EST [id number] Normal [facility] BREAST LTD LTon 04-24 [facility] BREAST LTD LT * * *Final Report* * * DATE OF EXAM: Apr 24 2024 3:09PM WRU 0593 - [facility] BREAST LTD LT / PROCEDURE REASON: Mass of upper inner quadrant of left breast * * * * Physician Interpretation * * * * #[id number] - [facility] [employer] BREAST LTD LT LIMITED ULTRASOUND OF LEFT BREAST: 04/24/2024 HISTORY: Mass Of Upper Inner Quadrant Of Left Breast. RESULT: Comparison is made to exam dated: 04/24/2024 mammogram - [facility]. Color flow and real-time ultrasound of the left breast 8-10 o'clock region were performed. Brown scale images of the real-time examination were reviewed. There is a benign 0.8 cm x 0.6 cm x 0.6 cm oval lesion with a circumscribed margin within the skin of the left breast at 9 o'clock 12 cm from the nipple. This oval lesion is hypoechoic with internal echoes. This correlates as palpated and with mammography findings. Color flow imaging demonstrates that there is no vascularity present. IMPRESSION: BENIGN There is no sonographic evidence of malignancy. The 0.8 cm x 0.6 cm x 0.6 cm oval lesion within the skin of the left breast resembles a sebaceous cyst and is benign. Return to annual mammogram screening schedule is recommended. Huseyin corona/juan:04/24/2024 15:21:29 Gear Design Engineer(s): Devi Solis, [facility] Ultrasound BI-RADS: Category 2: Benign Multiple national specialty organizations have released breast cancer screening guidelines for women at average risk for developing breast cancer - guidelines that are based on both evidence and opinion, yet differ on when to start and how often to screen for breast cancer. With representation from Breast Imaging, Internal Medicine, Women's Health, Family Medicine, and Medical/Surgical Oncology, the [facility] has carefully reviewed the data and reached the following consensus: 1) All women should engage in shared decision-making with their providers to decide when to start and how often to screen; 2) All women should have the opportunity to start screening mammography at age 40; 3) For women ages 45-55, we recommend annual screening mammograms; 4) For women ages 55 and over, we support both the transition from an annual to a biennial interval if this aligns more with patient's values and preferences, or continuation with annual screening; 5) All women should discuss with their providers when to stop screening mammograms. Civil Cad Designer: Juan Transcribe Date/Time: Apr 24 2024 3:00P Dictated by : HUSEYIN RIZO MD This examination was interpreted and the report reviewed and electronically signed by: HUSEYIN RIZO MD on Apr 24 2024 3:21PM EST [id number] Normal [facility] No Panel Informationon 04-24 Radiology Study observation (narrative) [facility] UA DIP,URINE HCG (POC)on Beta HCG ( test) Ql (U) Negative Negative [facility] Comment on above: Location:[facility], [address], [place], [address] Portable Sawyer (POCT) Internal QC OK [facility] Location:[facility], [address], [place], [address] [facility] POINT OF CARE [facility] US Breast - left limitedon 0 04-24-2024 IMPRESSION: BENIGN There is no sonographic evidence of malignancy. The 0.8 cm x 0.6 cm x 0.6 cm oval lesion within the skin of the left breast resembles a sebaceous cyst and is benign. Return to annual mammogram screening schedule is recommended. Huseyin corona/juan:04/24/2024 15:21:29 Gear Design Engineer(s): Devi Solis [facility] Ultrasound BI-RADS: Category 2: Benign Multiple national specialty organizations have released breast cancer screening guidelines for women at average risk for developing breast cancer - guidelines that are based on both evidence and opinion, yet differ on when to start and how often to screen for breast cancer. With representation from Breast Imaging, Internal Medicine, Women's Health, Family Medicine, and Medical/Surgical Oncology, the [facility] has carefully reviewed the data and reached the following consensus: 1) All women should engage in shared decision-making with their providers to decide when to start and how often to screen; 2) All women should have the opportunity to start screening mammography at age 40; 3) For women ages 45-55, we recommend annual screening mammograms; 4) For women ages 55 and over, we support both the transition from an annual to a biennial interval if this aligns more with patient's values and preferences, or continuation with annual screening; 5) All women should discuss with their providers when to stop screening mammograms. Civil Cad Designer: Juan Transcribe Date/Time: Apr 24 2024 3:00P Dictated by : HUSEYIN RIZO MD This examination was interpreted and the report reviewed and electronically signed by: HUSEYIN RIZO MD on Apr 24 2024 3:21PM [facility] DIVISION OF RADIOLOGY * * *Final Report* * * DATE OF EXAM: Apr 24 2024 3:09PM [facility] [address] [facility] BREAST [facility] / PROCEDURE REASON: Mass of upper inner quadrant of left breast * * * * Physician Interpretation * * * * #[id number] - [facility] [facility] LIMITED ULTRASOUND OF LEFT BREAST: 04/24/2024 HISTORY: Mass Of Upper Inner Quadrant Of Left Breast. RESULT: Comparison is made to exam dated: [facility]. Color flow and real-time ultrasound of the left breast 8-10 o'clock region were performed. Brown scale images of the real-time examination were reviewed. There is a benign 0.8 cm x 0.6 cm x 0.6 cm oval lesion with a circumscribed margin within the skin of the left breast at 9 o'clock 12 cm from the nipple. This oval lesion is hypoechoic with internal echoes. This correlates as palpated and with mammography findings. Color flow imaging demonstrates that there is no vascularity present. DIVISION OF RADIOLOGY Provider, [facility] - 04/24/2024 * * *Final Report* * * DATE OF EXAM: Apr 24 2024 3:09PM [facility] [address] [facility] BREAST [facility] / PROCEDURE REASON: Mass of upper inner quadrant of left breast * * * * Physician Interpretation * * * * #[id number] - [facility] [facility] [facility] LIMITED ULTRASOUND OF LEFT BREAST: 04/24/2024 HISTORY: Mass Of Upper Inner Quadrant Of Left Breast. RESULT: Comparison is made to exam [facility]: [facility] Color flow and real-time ultrasound of the left breast 8-10 o'clock region were performed. Brown scale images of the real-time examination were reviewed. There is a benign 0.8 cm x 0.6 cm x 0.6 cm oval lesion with a circumscribed margin within the skin of the left breast at 9 o'clock 12 cm from the nipple. This oval lesion is hypoechoic with internal echoes. This correlates as palpated and with mammography findings. Color flow imaging demonstrates that there is no vascularity present. IMPRESSION IMPRESSION: BENIGN There is no sonographic evidence of malignancy. The 0.8 cm x 0.6 cm x 0.6 cm oval lesion within the skin of the left breast resembles a sebaceous cyst and is benign. Return to annual mammogram screening schedule is recommended. Huseyin corona/juan:04/24/2024 15:21:29 Gear Design Engineer(s): Devi Solis [facility] Ultrasound BI-RADS: Category 2: Benign Multiple national specialty organizations have released breast cancer screening guidelines for women at average risk for developing breast cancer - guidelines that are based on both evidence and opinion, yet differ on when to start and how often to screen for breast cancer. With representation from Breast Imaging, Internal Medicine, Women's Health, Family Medicine, and Medical/Surgical Oncology, the [facility] has carefully reviewed the data and reached the following consensus: 1) All women should engage in shared decision-making with their providers to decide when to start and how often to screen; 2) All women should have the opportunity to start screening mammography at age 40; 3) For women ages 45-55, we recommend annual screening mammograms; 4) For women ages 55 and over, we support both the transition from an annual to a biennial interval if this aligns more with patient's values and preferences, or continuation with annual screening; 5) All women should discuss with their providers when to stop screening mammograms. Civil Cad Designer: Juan Transcribe Date/Time: Apr 24 2024 3:00P Dictated by : HUSEYIN RIZO MD This examination was interpreted and the report reviewed and electronically signed by: HUSEYIN RIZO MD on Apr 24 2024 3:21PM EST [facility] US Breast - left limitedOrde red By: [facility] Provider on 04-24-2024 [facility] CNCOon 04-03-2024 CNCO Letter Text Normal [facility] CNOVon 04-03-2024 CNOV Office Visit (OBGYWM) MELANIE LEVY ([id number]) 1980 F Date Time Provider Department 04/03/24 3:00 PM SARA BERGERON During your visit today, we recorded the following information about you: Pulse Blood pressure Weight 64/minute 114/62 103.9 kg Sara Bergeron APRN.BEER MAKER 04/03/2024 6:48 PM Signed Some documentation from previous visit of 02/15/2024 was copied and pasted, documentation has been reviewed and edited as necessary for today's visit. Patient Summary: Melanie is a 43 year old Female who presents for follow-up evaluation of obesity/weight management to treat and prevent related co-morbidities. In our previous visits we have discussed lifestyle intervention including a nutrition recommendations and physical activity optimization. Her last office visit was 2 month ago. Assessment/plan from last visit: Metformin ER 500 mg tablet Interval History PT specifies the following items as new or significant updates since the last appointment: Work crazy, increased activity Started journaling food, focusing on sleep Weight loss since last vist: 2 lb Date: Weight: BMI: Medications: 04/03/2024 229 lb 39.31 metformin ER 1 gm 02/15/2024 231 lb 39.44 metformin ER 500 mg 01/16/2024 228 lb 38.93 Waist Circumference: 42 in 5% weight loss = 189 lbs, 10% weight loss = 179 lbs Anti-obesity medications: metformin Benefit:less hunger Adverse effects: 2 vivid dreams Weight promoting medications: none Previous Diet (initial appointment): Low carb during the work week. WE - up late morning. Lunch first meal but same. Awake - 0515 0600 Diet Coke B - 8-9 am meat and cheese snacks or jerky or occasionally PB crackers S - none L - 1200 meat and cheese with raw veg or salad with meat/Ranch dressing S - no D - 6-8 pm Salad with meat or grilled chicken and broccoli or pizza rolls or chicken nuggets if nothing prepared or easy to prepare Eats out on WE - Nauruan, pizza, Citizen Of [place] S - occasional 8-10 pm chips/dip or popcorn Fluids - Diet Coke, occasional water. Alcohol one WE night - whiskey or coconut rum or cider beer Bedtime - Quality of diet: 24hr recall suggests somewhat healthy diet. Characterization of diet:Structured, excessive cravings, and evening snacking. 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:lack of satiety, mindlessness , and boredom Eating Disorder no Cravings: chips and dip Dietary changes: [id number] B - 30 gm protein shake S - occasionally almonds or cheese L - meat cheese, raw veg with Ranch or WE meat and cheese S - almonds or cheese or Quest chips D - fresh protein or with salad or low-carb veg/sometimes baked potato/small amount pasta Eating out - Nauruan grilled chicken/shrimp with lettuce, sour cream, chips and salsa or burger with 1/2 bun S - none Fluids - Diet Coke, occasional water. Alcohol 0-1 WE night - whiskey or coconut rum or cider beer Current Barriers: schedule Exercise: stable activity at home and work Exercise: Has gym at home - 2-3 days a week 15-30 minutes Regular exercise: no Strength/resistance exercise:yes Barriers to regular exercise? no Work-related activity:Sedentary. Gym Membership: no Activity Tracker: yes Stress: increased with long days at work Sleep: stable Duration: 7 hours, does not want to get up. FISH NO ; CPAP NO Estimated Creatinine Clearance: 99.2 mL/min (based on SCr of 0.85 mg/dL). PAST MEDICAL HISTORY 07/22/2005: Migraine without aura, without mention of intractable migraine without mention of status migrainosus 2020: Prediabetes Current Outpatient Medications Medication Sig Dispense Refill miSOPROStol (CYTOTEC) 200 mcg tablet Insert 2 tablets vaginally night prior to IUD and 2 tablets morning of procedure. Each dose should be in vagina for 6-8 hours. 4 tablet 0 medroxyPROGESTERone (DEPO-PROVERA) 150 mg/mL injection Inject 150 mg intramuscularly every 12 weeks. metFORMIN ER (GLUCOPHAGE XR) 500 mg 24 hr tablet Take 1 tablet by mouth daily with dinner. 90 tablet 0 No current facility-administere d medications for this visit. 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 [facility] BP 114/62 Pulse 64 Wt 103.9 kg (229 lb) SpO2 99% BMI 39.31 kg/m? Physical Exam Constitutional: She appears healthy. No distress. Results: recent labs reviewed with the patient. Latest Ref Rng AND Units 02/12/2024 CMP Sodium 136 - 144 mmol/L 140 Potassium 3.7 - 5.1 mmol/L 3.9 Chloride 98 - 107 mmol/L 110 CO2 22 - 30 mmol/L 19 Glucose 74 - 99 mg/dL 109 BUN 7 - 21 mg/dL 22 Creatinine 0.58 - 0.96 mg/dL 0.85 EGFR >=60 mL/min/1.73m? 87 Protein, Total 6.3 - 8.0 g/dL 6.3 Albumin 3.9 - 4.9 g/dL 4.1 Calcium 8.5 - 10.2 mg/dL 8.9 Bilirubin, Total 0.2 - 1.3 mg/dL 0.4 AST 1 (more content not included)... Normal [facility] C. trachomatis+N. gonorrhoea e DNA KVNG+probe Ql (Unsp spec)on 03-15-2024 C. trachomatis rRNA KVNG+probe Ql (Unsp spec) Negative Normal Negative for Chlamydia trachomatis by amplificaton [facility] Comment on above: Order Comment: Speci men Type: SWABOrdering Facility: [facility] Address: [address] [place] [address] Performed By: #### 3 [id number] ####[facility] [id number] [place] [address] [place] N. gonorrhoeae rRNA KVNG+probe Ql (Unsp spec) Negative Normal Negative for Neisseria gonorrhoeae by amplification [facility] Comment on above: Order Comment: Speci men Type: SWABOrdering Facility: [facility] Address: [address] [place] [address] Performed By: #### 3 [id number] ####[facility] [id number] [place] [address] [place] CNOVon 03-15-2024 CNOV Office Visit (OBGYWM) MELANIE LEVY ([id number]) 1980 F Date Time Provider Department 03/15/24 2:30 PM SARA BERGERON OBGYWM During your visit today, we recorded the following information about you: Blood pressure Weight Height 108/64 104.3 kg 1.626 m Sara Bergeron, POULTRY PROCESSOR.BEER MAKER 03/15/2024 3:23 PM Signed Linen Room Supervisor offered: Patient declines. Melanie is a 43 year old who presents for an annual gynecologic exam without complaints. Menses: no menses - Depo Provera Contraception: Depo Provera HPV vaccine: No Last Pap: 08/25/2021 - normal per pt HPV: unknown, assume 2014 History of abnormal pap: Yes 10/27/2014 - no colposcopy or procedures Last mammogram: 2021 normal [facility] - first mammogram Sexually active: Yes History of STDS: None Patient concerns for STD exposure: No. Time with current partner: 6 weeks Pain with intercourse: No Postcoital bleeding: No OB History T0 L2 SAB0 IAB0 Ectopic0 Multiple0 Live Births0 Commodity Supervisor History LMP: Drug Induced Amenorrhea Age at Menarche: Age at First : Age at Menopause: Commodity Supervisor History Comments: Sexual Activity: Yes; Male Contraception: Injection PAST MEDICAL HISTORY Diagnosis Date Migraine without aura, without mention of intractable migraine without mention of status migrainosus 07/22/2005 Prediabetes 2020 PAST SURGICAL HISTORY Procedure Laterality Date LAPAROSCOPY SURG CHOLECYSTECTOMY 1998 Cholecystectomy, lap FAMILY HISTORY Problem Relation Age of Onset Obesity Mother other (dysplastic nerves [Other]) Father and one sister Obesity Father Obesity Sister Hypertension Sister Migraines Sister Obesity Sister COPD Maternal Grandmother Heart disease Maternal Grandmother Obesity Maternal Grandmother Diabetes Paternal Grandmother Obesity Paternal Grandmother Obesity Paternal Grandfather SOCIAL HISTORY Social History Tobacco Use Smoking status: Every Day Packs/day: .5 Types: Cigarettes Last attempt to quit: 10/16/2016 Years since quittin.4 Smokeless tobacco: Never Tobacco comments: one pack a week/ about 8 per day. Vaping Use Vaping Use: Never used Substance Use Topics Alcohol use: Yes Comment: occasionally on weekends Drug use: No REVIEW OF SYSTEMS Abdomen: No abdominal pain, nausea, vomiting, diarrhea, or constipation. No bloating, early satiety, indigestion, or increased flatulence. Bladder: No dysuria, gross hematuria, urinary frequency, urinary urgency, or incontinence. Breast: small raised area to inner right breast for past couple months. No breast lumps, nipple d/c, overlying skin changes, redness or skin retraction. Allergies and current medication updated:Yes EXAM: BP 108/64 Ht 5' 4 (1.63m) Wt 230 lb (104.3kg) BMI 39.46 kg/(m2). GENERAL: pleasant, female in no apparent distress HEENT: Normocephalic, atraumatic, mucus membranes moist, and no lesions NECK: Supple, full range of motion, no adenopathy, and thyroid normal DERMATOLOGY: Normal, without lesions, non-icteric, and non-hirsute BREAST: soft, non-tender, symmetric, normal nipple-areolar complex, no lymphadenopathy, no nipple discharge, and dominant mass sub-cm superficial mass inner upper left breast. CHEST: Normal inspiratory effort ABDOMEN: soft, non-tender, and no masses PELVIC: external genitalia normal, normal Bartholin's glands, urethra, Eugene's glands, no vulvar lesions, no cervical lesions, good vaginal support, physiologic discharge present, normal appearing perineal body and perianal region BIMANUAL: uterus normal size, shape and consistency, no adnexal masses, and non-tender RECTOVAGINAL: deferred. NEURO: alert and oriented x3,exam grossly non-focal EXTREMITIES: normal ASSESSMENT/PLAN: 1) Health maintenance: Pap done with HPV. - smoking cessation encouraged 2. Mass of upper inner quadrant of left breast - ICD9: 611.72, ICD10: N63.22 - US BREAST LTD LEFT - MICHAEL DIAGNOSTIC BILATERAL 3. General counseling and advice for contraceptive management - ICD9: V25.09, ICD10: Z30.09 - Last dose Depo Provera 01/2024 - INSERT INTRAUTERINE DEVICE - Mirena IUD - MISOPROSTOL 200 MCG TABLET 4. Screen for STD (sexually transmitted disease) - ICD9: V74.5, ICD10: Z11.3 - GONORRHEA/CHLAMYDIA NAAT 5) Follow up for IUD insertion and one year for annual or sooner as needed Sara Bergeron APRN.IBIS Diorestrellita Joyce 04/03/2024 1:52 PM Signed Mailed letter Allergies As of Date: 03/15/2024 Noted Allergy Reaction LATEX 05/23/2005 2 - Rash Date Reviewed: 03/15/2024 Reviewed by: Sara Bergeron APRN.BEER MAKER - Fully Assessed Reason for Visit: Well Woman [1463] Primary Visit Diagnosis:Encounter for gynecological examination with abnormal finding [Z01.411] Other Visit Diagnoses:Mass of upper inner quadrant of left breast [N63.22] General counseling and advice for contraceptive managem (more content not included)... Normal [facility] HIGH RISK HUMAN PAPILLOMA JAYLYN (HPV), PCR FOR DETECTION AND GENOTYPINGon 03-15-2024 HPV 16 Ag Ql (Unsp spec) Not detected Normal Not detected [facility] Comment on above: Order Comment: Speci men Type: FLUID SPECIMEN [facility] Address: [address] [place] [address] Performed By: #### L [id number] #### [facility] CLIA [id number] [address] [place] [address] [place] [facility] CLIA [id number] [address] [place] [address] [place] #### HPVHRT #### [facility] CLIA [id number] [address] [place] [address] [place] HPV 18 Ag Ql (Unsp spec) Not detected Normal Not detected [facility] Comment on above: Order Comment: Speci men Type: FLUID SPECIMEN [facility] Address: [address] [place] [address] Performed By: #### L [id number] #### [facility] CLIA [id number] [address] [place] [address] [place] [facility] CLIA [id number] [address] [place] [address] [place] #### HPVHRT #### [facility] CLIA [id number] [address] [place] [address] [place] HPV 31+33+35+39+45+51+52+5 6+58+59+66+68 DNA KVNG+probe Ql (Cvx) Not detected Normal Not detected [facility] Comment on above: Order Comment: Speci men Type: FLUID SPECIMEN [facility] Address: [address] [place] [address] Result Comment: High Risk HPV Other Type includes HPV types 31, 33, 35, 39, 45, 51, 52, 56, 58, 59, 66 and 68. Performed By: #### L [id number] #### [facility] CLIA [id number] [address] [place] [address] [place] [facility] CLIA [id number] [address] [place] [address] [place] #### HPVHRT #### [facility] CLIA [id number] [address] [place] [address] [place] PAP TESTon 03-15-2024 ADEQUACY Satisfactory for interpretation. Normal [facility] Comment on above: Order Comment: Speci men Type: FLUID SPECIMEN [facility] Address: [address] [place] [address] Performed By: #### L [id number] #### [facility] CLIA [id number] [address] [place] [address] [place] [facility] CLIA [id number] [address] [place] [address] [place] #### HPVHRT #### [facility] CLIA [id number] [address] [place] [address] [place] CASE REPORT Normal [facility] Comment on above: Order Comment: Speci men Type: FLUID SPECIMEN [facility] Address: [address] [place] [address] Result Comment: Gyne cologic Cytology Report Case: [id number] Authorizing Provider: Sara Bergeron APRN.BEER MAKER Collected: 03/15/2024 03:14 PM Ordering Location: OB/Gynecology Received: 03/15/2024 04:47 PM First Screen: Marty Rojas, CT, ASCP Specimen: Pap Test, ThinPrep, Cervix Performed By: #### L [id number] #### [facility] CLIA [id number] [address] [place] [address] [place] [facility] CLIA [id number] [address] [place] [address] [place] #### HPVHRT #### [facility] CLIA [id number] [address] [place] [address] [place] CLINICAL HISTORY, CYTOLOGY, PLASTER MOLDER Normal [facility] Comment on above: Order Comment: Speci men Type: FLUID SPECIMEN [facility] Address: [address] [place] [address] Result Comment: Horm onal Contraceptive, No Menses Depo-Provera Routine Exam Performed By: #### L [id number] #### [facility] CLIA [id number] [address] [place] [address] [place] [facility] CLIA [id number] [address] [place] [address] [place] #### HPVHRT #### [facility] CLIA [id number] [address] [place] [address] [place] FINAL PERFORMING LAB Normal [facility] Comment on above: Order Comment: Speci men Type: FLUID SPECIMEN [facility] Address: [address] [place] [address] Result Comment: Tech nical component, skid road man screening performed at [facility], [address] [facility], [place] [address] CLIA# [id number] Diagnostic interpretation performed at [facility], [address] [place] [address] CLIA# [id number] Cardiology Tech: Claudia Gore M.D. Performed By: #### L [id number] #### [facility] CLIA [id number] [address] [place] [address] [place] [facility] CLIA [id number] [address] [place] [address] [place] #### HPVHRT #### [facility] CLIA [id number] [address] [place] [address] [place] HPV REFLEX Yes HPV Normal [facility] Comment on above: Order Comment: Speci men Type: FLUID SPECIMEN [facility] Address: [address] [place] [address] Performed By: #### L [id number] #### [facility] CLIA [id number] [address] [place] [address] [place] [facility] CLIA [id number] [address] [place] [address] [place] #### HPVHRT #### [facility] CLIA [id number] [address] [place] [address] [place] INTERPRETATION, CYTOLOGY, PLASTER MOLDER Normal [facility] Comment on above: Order Comment: Speci men Type: FLUID SPECIMEN [facility] Address: [address] [place] [address] Result Comment: Nega tive for intraepithelial lesion or malignancy. Performed By: #### L [id number] #### [facility] CLIA [id number] [address] [place] [address] [place] [facility] CLIA [id number] [address] [place] [address] [place] #### HPVHRT #### [facility] CLIA [id number] [address] [place] [address] [place] PAP DISCLAIMER COMMENT The Pap Smear is a screening test for cervical cancer. False negative results occur with all screening tests, emphasizing the need for rescreening at recommended intervals, and clinical correlation. Normal [facility] Comment on above: Order Comment: Speci men Type: FLUID SPECIMEN [facility] Address: [address] [place] [address] Performed By: #### L [id number] #### [facility] CLIA [id number] [address] [place] [address] [place] [facility] CLIA [id number] [address] [place] [address] [place] #### HPVHRT #### [facility] CLIA [id number] [address] [place] [address] [place] PAP OIL WELL CABLE TOOL OPERATOR COMMENT This specimen has been analyzed by the ThinPrep Imaging System, an automated imaging and review system, which assists the laboratory in evaluating cells on ThinPrep Pap tests. Following automated imaging, selected alamo from every slide are reviewed by a skid road man. Normal [facility] Comment on above: Order Comment: Speci men Type: FLUID SPECIMEN [facility] Address: [address] [place] [address] Performed By: #### L [id number] #### [facility] CLIA [id number] [address] [place] [address] [place] [facility] CLIA [id number] [address] [place] [address] [place] #### HPVHRT #### [facility] CLIA [id number] [address] [place] [address] [place] CNOVon 02-15-2024 CNOV Office Visit (OBGYWM) MELANIE LEVY ([id number]) 1980 F Date Time Provider Department 02/15/24 2:00 PM SARA BERGERON OBCESARWOmi During your visit today, we recorded the following information about you: Pulse Blood pressure Weight 54/minute 112/72 104.8 kg Sara Bergeron APRN.BEER MAKER 02/15/2024 7:47 PM Signed Some documentation from previous visit of 01/16/2024 was copied and pasted, documentation has been reviewed and edited as necessary for today's visit. Patient Summary: Melanie is a 43 year old Female who presents for follow-up evaluation of obesity/weight management to treat and prevent related co-morbidities. In our previous visits we have discussed lifestyle intervention including a nutrition recommendations and physical activity optimization. Her last office visit was 1 month ago. Assessment/plan from last visit: - Given 15 gram carb whole food and protein suggestion list and snack ideas Interval History PT specifies the following items as new or significant updates since the last appointment: Not much motivation Increased activity Weight loss since last vist: + 3 lb 02/15/2024 231 lb 01/16/2024 228 lb (103.4 kg) BMI 38.93 Waist Circumference: 42 in 5% weight loss = 189 lbs, 10% weight loss = 179 lbs Anti-obesity medications: na. Benefit:na Adverse effects: na Weight promoting medications: none Previous Diet (initial appointment): Low carb during the work week. WE - up late morning. Lunch first meal but same. Awake - 0515 0600 Diet Coke B - 8-9 am meat and cheese snacks or jerky or occasionally PB crackers S - none L - 1200 meat and cheese with raw veg or salad with meat/Ranch dressing S - no D - 6-8 pm Salad with meat or grilled chicken and broccoli or pizza rolls or chicken nuggets if nothing prepared or easy to prepare Eats out on WE - Nauruan, pizza, Citizen Of [place] S - occasional 8-10 pm chips/dip or popcorn Fluids - Diet Coke, occasional water. Alcohol one WE night - whiskey or coconut rum or cider beer Bedtime - Quality of diet: 24hr recall suggests somewhat healthy diet. Characterization of diet:Structured, excessive cravings, and evening snacking. 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:lack of satiety, mindlessness , and boredom Eating Disorder no Cravings: chips and dip Dietary changes: [id number] B - 30 gm protein shake S - occasionally beef jerky and almonds or cheese L - meat cheese, raw veg with Ranch or WE meat and cheese wrap or taco salad S - beef jerky and almonds or cheese or Quest chocolate cookie D - Taco salad with Quest chips or grilled chicken with rice/broccoli or chicken wings with salad or meat cheese, lettuce in low-carb tortilla Eating out - Sierra Leonean Salad, chicken parm with pasta and bread or Nauruan grilled chicken quesadilla, sour cream, chips and salsa S - occasional popcorn Fluids - Diet Coke, occasional water. Alcohol one WE night - whiskey or coconut rum or cider beer Current Barriers: lack of motivation, inadequate sleep duration, and reduced physical activity Exercise: increased increased activity at home and work Exercise: Has gym at home - 2-3 days a week 15-30 minutes Regular exercise: no Strength/resistance exercise:yes Barriers to regular exercise? no Work-related activity:Sedentary. Gym Membership: no Activity Tracker: yes Stress: stable Stress:yes , Cause:Work Sleep: stable Duration: 7 hours, does not want to get up. FISH NO ; CPAP NO Estimated Creatinine Clearance: 100 mL/min (based on SCr of 0.85 mg/dL). PAST MEDICAL HISTORY Diagnosis Date Migraine without aura, without mention of intractable migraine without mention of status migrainosus 07/22/2005 Prediabetes 2020 Current Outpatient Medications Medication Sig Dispense Refill medroxyPROGESTERone (DEPO-PROVERA) 150 mg/mL injection Inject 150 mg intramuscularly every 12 weeks. No current facility-administere d medications for this visit. 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 [facility] BP 112/72 Pulse (!) 54 Wt 104.8 kg (231 lb) SpO2 94% BMI 39.44 kg/m? Physical Exam Constitutional: She appears healthy. No distress. Results: recent labs reviewed with the patient. Latest Ref Rng AND Units 02/12/2024 CMP Sodium 136 - 144 mmol/L 140 Potassium 3.7 - 5.1 mmol/L 3.9 Chloride 98 - 107 mmol/L 110 CO2 22 - 30 mmol/L 19 Glucose 74 - 99 mg/dL 109 BUN 7 - 21 mg/dL 22 Creatinine 0.58 - 0.96 mg/dL 0.85 EGFR >=60 mL/min/1.73m? 87 Protein, Total 6.3 - 8.0 g/dL 6.3 Albumin 3.9 - 4.9 g/dL 4.1 Calcium 8.5 - 10.2 mg/dL 8.9 Bilirubin, Total 0.2 - 1.3 mg/dL 0.4 AST 13 - 35 U/L 10 ALT 7 - 38 U/L 10 Alkaline Phosphatase 34 - 123 U/L 46 Cholesterol, Total (mg/dL) Date Value 02/12/2024 151 HDL (more content not included)... Normal [facility] 25(OH)D3 [facility] 25-hydroxyvitamin D3 [Mass/Vol] 48.2 ng/mL Normal 31.0-80.0 [facility] Comment on above: Order Comment: Speci men Type: BLOOD SPECIMENOrdering Facility: [facility] Address: [address] [place] [address] Result Comment: Clas sification of 25 [place] Vitamin D status: Deficiency/Insufficiency: < or = 30 ng/ml. Sufficiency/Optimal Levels: 31-80 ng/mL Toxicity: > 100 ng/mL. Test performed by chemiluminescent immunoassay. Performed By: #### 1 989-3 ####[facility] [id number] [facility] [address] [place] CBC panel Auto (Bld)on 02-11 Erythrocyte distribution width (RBC) [Ratio] 12.5 % Normal 11.5-15.0 [facility] Comment on above: Order Comment: Speci men Type: BLOOD SPECIMENOrdering Facility: [facility] Address: [address] [place] [address] Performed By: #### 5 8410-2 ####[facility] [id number] [place] [address] [place] Hematocrit (Bld) [Volume fraction] 38.4 % Normal 36.0-46.0 [facility] Comment on above: Order Comment: Speci men Type: BLOOD SPECIMENOrdering Facility: [facility] Address: [address] [place] [address] Performed By: #### 5 8410-2 ####[facility] [id number] [place] [address] [place] Hemoglobin (Bld) [Mass/Vol] 13.3 g/dL Normal 11.5-15.5 [facility] Comment on above: Order Comment: Speci men Type: BLOOD SPECIMENOrdering Facility: [facility] Address: [address] [place] [address] Performed By: #### 5 8410-2 ####[facility]ENTERNCLIA [id number] [place] [address] [place] MCH (RBC) [Entitic mass] 31.1 pg Normal 26.0-34.0 [facility] Comment on above: Order Comment: Speci men Type: BLOOD SPECIMENOrdering Facility: [facility] Address: [address] [place] [address] Performed By: #### 5 8410-2 ####[facility]ENTERNCLIA [id number] [place] [address] [place] MCHC (RBC) [Mass/Vol] 34.6 g/dL Normal 30.5-36.0 [facility] Comment on above: Order Comment: Speci men Type: BLOOD SPECIMENOrdering Facility: [facility] Address: [address] [place] [address] Performed By: #### 5 8410-2 ####[facility] JUNNCJOSEPH [id number] [place] [address] [place] MCV (RBC) [Entitic vol] 89.7 fL Normal 80.0-100.0 [facility] Comment on above: Order Comment: Speci men Type: BLOOD SPECIMENOrdering Facility: [facility] Address: [address] [place] [address] Performed By: #### 5 8410-2 ####[facility] CENTERNCJOSEPH [id number] [place] [address] [place] Nucleated RBC (Bld) [#/Vol] 10*3/uL Normal <0.01 [facility] Comment on above: Order Comment: Speci men Type: BLOOD SPECIMENOrdering Facility: [facility] Address: [address] [place] [address] Performed By: #### 5 8410-2 ####[facility]ENTERNCLIA [id number] [place] [address] [place] Platelet mean volume (Bld) [Entitic vol] 10.3 fL Normal 9.0-12.7 [facility] Comment on above: Order Comment: Speci men Type: BLOOD SPECIMENOrdering Facility: [facility] Address: [address] [place] [address] Performed By: #### 5 8410-2 ####[facility]ENTERNCLIA [id number] [place] [address] [place] Platelets (Bld) [#/Vol] 239 10*3/uL Normal 150-400 [facility] Comment on above: Order Comment: Speci men Type: BLOOD SPECIMENOrdering Facility: [facility] Address: [address] [place] [address] Performed By: #### 5 8410-2 ####[facility] LUIZACiraNCLIA [id number] [place] [address] [place] RBC (Bld) [#/Vol] 4.28 10*6/uL Normal 3.90-5.20 [facility] Comment on above: Order Comment: Speci men Type: BLOOD SPECIMENOrdering Facility: [facility] Address: [address] [place] [address] Performed By: #### 5 8410-2 ####[facility]ENTERNCLIA [id number] [place] [address] [place] WBC (Bld) [#/Vol] 7.55 10*3/uL Normal 3.70-11.00 [facility] Comment on above: Order Comment: Speci men Type: BLOOD SPECIMENOrdering Facility: [facility] Address: [address] [place] [address] Performed By: #### 5 8410-2 ####[facility] CENTERNCLIA [id number] [place] [address] [place] Comprehensive metabolic 2000 panelon 02-12-2024 Albumin [Mass/Vol] 4.1 g/dL Normal 3.9-4.9 [facility] Comment on above: Order Comment: Speci men Type: BLOOD SPECIMENOrdering Facility: [facility] Address: [address] [place] [address] Performed By: #### 2 4323-8 ####[facility]ENTERNCLIA [id number] [place] [address] [place] ALP [Catalytic activity/Vol] 46 U/L Normal 34-123 [facility] Comment on above: Order Comment: Speci men Type: BLOOD SPECIMENOrdering Facility: [facility] Address: [address] [place] [address] Performed By: #### 2 4323-8 ####[facility] MILLTOWNCLIA [id number] [place] [address] [place] ALT [Catalytic activity/Vol] 10 U/L Normal 7-38 [facility] Comment on above: Order Comment: Speci men Type: BLOOD SPECIMENOrdering Facility: [facility] Address: [address] [place] [address] Performed By: #### 2 4323-8 ####[facility] MILLTOWNCLIA [id number] [place] [address] [place] Anion gap [Moles/Vol] 11 mmol/L Normal 8-15 [facility] Comment on above: Order Comment: Speci men Type: BLOOD SPECIMENOrdering Facility: [facility] Address: [address] [place] [address] Performed By: #### 2 4323-8 ####[facility] MILLTOWNCLIA [id number] [place] [address] [place] AST [Catalytic activity/Vol] 10 U/L Low 13-35 [facility] Comment on above: Order Comment: Speci men Type: BLOOD SPECIMENOrdering Facility: [facility] Address: [address] [place] [address] Performed By: #### 2 4323-8 ####[facility] MILLTOWNCLIA [id number] [place] [address] [place] Bilirubin [Mass/Vol] 0.4 mg/dL Normal 0.2-1.3 [facility] Comment on above: Order Comment: Speci men Type: BLOOD SPECIMENOrdering Facility: [facility] Address: [address] [place] [address] Performed By: #### 2 4323-8 ####[facility] MILLTOWNCLIA [id number] [place] [address] [place] Calcium [Mass/Vol] 8.9 mg/dL Normal 8.5-10.2 [facility] Comment on above: Order Comment: Speci men Type: BLOOD SPECIMENOrdering Facility: [facility] Address: [address] [place] [address] Performed By: #### 2 4323-8 ####[facility] CENTERNCLIA [id number] [place] [address] [place] Chloride [Moles/Vol] 110 mmol/L High 98-107 [facility] Comment on above: Order Comment: Speci men Type: BLOOD SPECIMENOrdering Facility: [facility] Address: [address] [place] [address] Performed By: #### 2 4323-8 ####[facility] CENTERNCLI [id number] [place] [address] [place] CO2 [Moles/Vol] 19 mmol/L Low 22-30 [facility] Comment on above: Order Comment: Speci men Type: BLOOD SPECIMENOrdering Facility: [facility] Address: [address] [place] [address] Performed By: #### 2 4323-8 ####[facility] [id number] [place] [address] [place] Creatinine [Mass/Vol] 0.85 mg/dL Normal 0.58-0.96 [facility] Comment on above: Order Comment: Speci men Type: BLOOD SPECIMENOrdering Facility: [facility] Address: [address] [place] [address] Performed By: #### 2 4323-8 ####[facility] CENTERNCLIA [id number] [place] [address] [place] Creatinine and Glomerular filtration rate.predicted panel (S/P/Bld) 87 mL/min/1.73m??? Normal >=60 [facility] Comment on above: Order Comment: Speci men Type: BLOOD SPECIMENOrdering Facility: [facility] Address: [address] [place] [address] Result Comment: Ilsa mated Glomerular Filtration Rate (eGFR) is calculated using the 2020 CKD-EPI creatinine equation. This equation utilizes serum creatinine, sex, and age as parameters. The creatinine assay has traceable calibration to isotope dilution-mass spectrometry. Refer to KDIGO guidelines for clinical interpretation. In patients with unstable renal function, e.g. those with acute kidney injury, the eGFR may not accurately reflect actual GFR. Performed By: #### 2 4323-8 ####[facility] [id number] [place] [address] [place] Glucose [Mass/Vol] 109 mg/dL High 74-99 [facility] Comment on above: Order Comment: Natalia garcia Type: BLOOD SPECIMENOrdering Facility: [facility] Address: [address] [place] [address] Result Comment: The [place] Diabetes Association (ADA) provides guidance for cutoff values for fasting glucose and random glucose. The ADA defines fasting as no caloric intake for at least 8 hours. Fasting plasma glucose results between 100 to 125 mg/dL indicate increased risk for diabetes (prediabetes). Fasting plasma glucose results greater than or equal to 126 mg/dL meet the criteria for diagnosis of diabetes. In the absence of unequivocal hyperglycemia, results should be confirmed by repeat testing. In a patient with classic symptoms of hyperglycemia or hyperglycemic crisis, random plasma glucose results greater than or equal to 200 mg/dL meet the criteria for diagnosis of diabetes. Reference: Standards of Medical Care in Diabetes 2016, [place] Diabetes Association. Diabetes Care. 2016.39(Suppl 1). Performed By: #### 2 4323-8 ####[facility] [id number] [place] [address] [place] Potassium [Moles/Vol] 3.9 mmol/L Normal 3.7-5.1 [facility] Comment on above: Order Comment: Natalia garcia Type: BLOOD SPECIMENOrdering Facility: [facility] Address: [address] [place] [id number] Performed By: #### 2 4323-8 ####[facility] SYSTEML[facility] [id number] [place] [address] [place] Protein [Mass/Vol] 6.3 g/dL Normal 6.3-8.0 [facility] Comment on above: Order Comment: Speci men Type: BLOOD SPECIMENOrdering Facility: [facility] Address: [address] [place] [address] Performed By: #### 2 4323-8 ####[facility] SYSTEM[facility] [id number] [place] [address] [place] Sodium [Moles/Vol] 140 mmol/L Normal 136-144 [facility] Comment on above: Order Comment: Speci men Type: BLOOD SPECIMENOrdering Facility: [facility] Address: [address] [place] [address] Performed By: #### 2 4323-8 ####[facility] [id number] [place] [address] [place] Urea nitrogen [Mass/Vol] 22 mg/dL High 7-21 [facility] Comment on above: Order Comment: Speci men Type: BLOOD SPECIMENOrdering Facility: [facility] Address: [address] [place] [address] Performed By: #### 2 4323-8 ####[facility] SYSTEML[facility] [id number] [place] [address] [place] HbA1c (Bld)on 02-12-2024 Average glucose Estimated from glycated hemoglobin (Bld) [Mass/Vol] 105 mg/dL Normal [facility] Comment on above: Order Comment: Speci men Type: BLOOD SPECIMENOrdering Facility: [facility] Address: [address] [place] [address] Result Comment: eAG: (Estimated average glucose) is a calculated value from HgbA1c and is promotions representative of the average blood glucose level in the last 2-3 month period. Performed By: #### 5 5454-3 ####[facility] LABCLIA [id number] [place] [address] [place] HbA1c (Bld) [Mass fraction] 5.3 % Normal 4.3-5.6 [facility] Comment on above: Order Comment: Natalia men Type: BLOOD SPECIMENOrdering Facility: [facility] Address: [address] [place] [address] Result Comment: Amer [place] Diabetes Association guidelines indicate that patients with HgbA1c in the range 5.7-6.4% are at increased risk for development of diabetes, and intervention by lifestyle modification may be beneficial. HgbA1c greater or equal to 6.5% is considered diagnostic of diabetes. Performed By: #### 5 5454-3 ####[facility] LABCLIA [id number] [place] [address] [place] Insulin SerPl-aCncon 024 Insulin Qn 10.7 u[IU]/mL Normal 3.0-25.0 [facility] Comment on above: Order Comment: Natalia men Type: BLOOD SPECIMENOrdering Facility: [facility] Address: [address] [place] [address] Performed By: #### 2 0448-7 ####[facility] [id number] [place] [address] [place] Lipid 1996 panelon 4 Cholesterol [Mass/Vol] 151 mg/dL Normal <200 [facility] Comment on above: Order Comment: Speci men Type: BLOOD SPECIMENOrdering Facility: [facility] Address: [address] [place] [address] Result Comment: <200 mg/dL, Desirable 200-239 mg/dL, Borderline high >239 mg/dL, High Performed By: #### 2 4331-1 ####[facility]IA [id number] [place] [address] [place] [facility] [id number] [place] [address] [place]#### 3016-3 ####[facility] LABCLIA [id number] [place] [address] [place] Cholesterol in HDL [Mass/Vol] 51 mg/dL Normal >39 [facility] Comment on above: Order Comment: Speci men Type: BLOOD SPECIMENOrdering Facility: [facility] Address: [address] [place] [address] Result Comment: 40-5 9 mg/dL, Acceptable >59 mg/dL, High: Negative risk factor for coronary heart disease <40 mg/dL, Low: Positive risk factor for coronary heart disease Performed By: #### 2 4331-1 ####[facility] LABCLIA [id number] [address] [facility] [id number] [place] [address] [place]#### 3016-3 ####[facility] LABCLIA [id number] [place] [address] [place] Cholesterol in LDL [Mass/Vol] 88 mg/dL Normal <100 [facility] Comment on above: Order Comment: Speci men Type: BLOOD SPECIMENOrdering Facility: [facility] Address: [address] [place] [address] Result Comment: <100 mg/dL, Optimal 100-129 mg/dL, Near optimal/above optimal 130-159 mg/dL, Borderline high 160-189 mg/dL, High >189 mg/dL, Very high Secondary prevention optimal LDL Cholesterol levels are recommended to be < 70 mg/dL Performed By: #### 2 4331-1 ####[facility] LABCLIA [id number] [place] [address] [place] [facility] [id number] [place] [address] [place]#### 3016-3 ####[facility]IA [id number] [place] [address] [place] Cholesterol in LDL/Cholesterol in HDL [Mass ratio] 1.73 {ratio} Normal <2.54 [facility] Comment on above: Order Comment: Speci men Type: BLOOD SPECIMENOrdering Facility: [facility] Address: [address] [place] [address] Result Comment: Jose R baxter: 1. National Cholesterol Education Program ATP III Guideline At-A-Glance Quick Desk Reference: National Heart, Lung, and Blood [place]. National Institutes of Health. 2001: NIH Publication No. 01-3305. 2. An International Atherosclerosis Society position paper: global recommendations for the management of dyslipidemia: executive summary, Atherosclerosis. 2014: 232(2):410-413. Performed By: #### 2 4331-1 ####[facility] MED[facility] CENTERIA [id number] [address] [id number] [place] [address] [place]#### 3016-3 ####[facility]IA [id number] [place] [address] [place] Cholesterol in VLDL [Mass/Vol] 12 mg/dL Normal <30 [facility] Comment on above: Order Comment: Speci men Type: BLOOD SPECIMENOrdering Facility: [facility] Address: [address] [place] [address] Performed By: #### 2 4331-1 ####[facility]IA [id number] [address] [id number] [place] [address] [place]#### 3016-3 ####[facility]IA [id number] [place] [address] [place] Cholesterol non HDL [Mass/Vol] 100 mg/dL Normal <130 [facility] Comment on above: Order Comment: Speci men Type: BLOOD SPECIMENOrdering Facility: [facility] Address: [address] [place] [address] Result Comment: <130 mg/dL, Optimal 130-159 mg/dL, Near optimal/above optimal 160-189 mg/dL, Borderline high 190-219 mg/dL, High >219 mg/dL, Very high Secondary prevention optimal non HDL Cholesterol levels are recommended to be <100 mg/dL Performed By: #### 2 4331-1 ####[facility] [id number] [address] [id number] [place] [address] [place]#### 3016-3 ####[facility] [id number] [place] [address] [place] Cholesterol.total/Chol esterol in HDL [Mass ratio] 2.96 {ratio} Normal <5.10 [facility] Comment on above: Order Comment: Speci men Type: BLOOD SPECIMENOrdering Facility: [facility] Address: [address] [place] [address] Performed By: #### 2 4331-1 ####[facility] [id number] [address] [id number] [place] [address] [place]#### 3016-3 ####[facility] [id number] [place] [address] [place] FASTING TIME 12 hrs Normal [facility] Comment on above: Order Comment: Speci men Type: BLOOD SPECIMENOrdering Facility: [facility] Address: [address] [place] [address] Performed By: #### 2 4331-1 ####[facility] [id number] [address] [id number] [address] OF [place]#### 3016-3 ####[facility] [id number] [place] [address] [place] Triglyceride [Mass/Vol] 60 mg/dL Normal <150 [facility] Comment on above: Order Comment: Speci men Type: BLOOD SPECIMENOrdering Facility: [facility] Address: [address] [place] [address] Result Comment: <150 mg/dL, Normal 150-199 mg/dL, Borderline high 200-499 mg/dL, High >499 mg/dL, Very high Performed By: #### 2 4331-1 ####[facility] [id number] [address] [id number] [address] [place]#### 3016-3 ####[facility] [id number] [place] [address] [place] TSH SerPl-aCncon 02-12-2024 TSH Qn 2.170 m[IU]/L Normal 0.270-4.200 [facility] Comment on above: Order Comment: Speci men Type: BLOOD SPECIMENOrdering Facility: [facility] Address: [address] [place] [address] Result Comment: If t he patient is , TSH reference range varies by gestational period: First Trimester (weeks 9-12): 0.180-2.990 mIU/L Second Trimester: 0.110-3.980 mIU/L Third Trimester: 0.480-4.710 mIU/L Miguel A Almaguer et al. A Practical Approach for the Verifications and Determination of Site- and Trimester-Specific Reference Intervals for Thyroid Function tests in . Thyroid, 2019:29:3:412-420. Luis Kate, et al. 2017 Guidelines of the [place] Thyroid Association for the Diagnosis and Management of Thyroid Disease during and the . Thyroid, 2017:27:3:315-389. Performed By: #### 2 4331-1 ####[facility] [id number] [address] [id number] [address] OF [facility]#### 3016-3 ####[facility] [id number] [address] CNOVon 01-16-2024 CNOV Office Visit (OBCESARWM) MELANIE LEVY ([id number]) 1980 F Date Time Provider Department 01/16/24 1:00 PM SARA BERGERON During your visit today, we recorded the following information about you: Pulse Blood pressure Weight Height 65/minute 104/68 103.4 kg 1.63 m Sara Bergeron APRN.BEER MAKER 01/16/2024 2:10 PM Addendum Weight Management: You have taken the initiative to become a healthier version of yourself and to decrease the risks that come with the diagnosis of obesity or being overweight. We are happy to help you along this journey but know this is a lifetime commitment to yourself. Losing just 3-10 % of your body weight can decrease your risks of many other serious diseases like diabetes, heart disease, osteoarthritis, hypertension, cancer and so many others. During this time you will have triumphs, setbacks and plateaus- your body will fight against you but we are here to give you the tools and the resources to continue to reach your goals. We recommend during this time that you track your weight daily or at least five times per week as well as tracking your nutrition. You may track your activity but do not use hitting your fitness goals as a reward system as this can derail your success. We recommend weekly physical activity of 150-200 min/week-although physical exercise, this will be especially important for weight maintenance. Exercise can have many other benefits including improving insulin resistance, improving balance, bone health, improving mental health and cardiovascular health. Do not feel overwhelmed - we will discuss this more at your visits. Our time will be limited with each visit but we will try to touch on factors that are important to you and to your overall goals. We will try to set a goal at the end of each visit and then decide on what we want to accomplish with your upcoming visits. On your After Visit Summary (AVS), we will provide you with information that may be useful during this journey so please remember to read the information given. Check your AVS a few days after your appointment because we may have added more information specifically for you. Remember that if you are placed on medications, they are tools that can help you succeed but you must put in the work. Your nutrition will be the main factor. There are medications that work well for some and not for others- so it may take time to find the right combination for your body's needs. Please remember that factors such as other health co-morbidities one might have, as well as insurance coverage, will play a factor in determining which medications you can take. Most of the newer medications that are all the craze ,injectables, may not be covered or will only be covered if you fail months of oral medications or have Type 2 diabetes so please be patient with the process. It would be beneficial for you to determine what your insurance covers as far as Anti-Obesity Medications (AOMs), Nutritional Counseling, behavioral intervention and weight loss surgery. Please call your health insurance prior to your first appointment and write down coverage for each of those therapies. Most importantly, remember that ultimately our goal is to help you get to a healthier weight which will decrease your overall health risks. We will work together as a team and try to reach your personalized goals as well. Follow-up appointments Please arrive to follow-up visits a minimum of 15 minutes prior to your appointment. Follow-up weight management visits can be virtual. You will need to report a current blood pressure, heart rate (pulse) and weight at the beginning of each virtual appointment so you will need to have a reliable BP cuff, either wrist or upper arm. If you need to reschedule your appointment time or switch from an in-office visit to a virtual visit or vice versa, you need to call our office as we have designated appointment slots. This should not be done on [place] as you will not be scheduled appropriately and will need to be rescheduled. We appreciate that you have entrusted us with your health and know that we are committed to this process with you. Sincerely, Gloria Perry MD, PRAFUL BATISTA AND Sara Bergeron CNP Advanced Education from the Obesity Medicine Association Obesity Obesity is a disease that affects nearly one-third of the adult [place] population (approximately 60 million). The number of overweight and obese Americans has continued to increase since 1959, a trend that is not slowing down. Today, 64.5 percent of adult Americans (about 127 million) are categorized as being overweight or obese. Each year, obesity causes at least 300,000 excess deaths in the [place] and healthcare costs of [place] adults with obesity amount to approximately $100 billion. (AOA) Obesity is a complex, multi-factorial (more content not included)... Normal [facility] HIV 1 and HIV-2 antibody ass ay with HIV-1 p24 antigen detectionOrdered By: Dr. Flores on 08-26-2022 HIV 1+2 Ab+HIV1 p24 Ag IA Ql Non-Reactive Nonreactive [facility] No Panel InformationOrdered By: Dr. Flores on 08-26-2022 Hepatitis B Surface Antigen Non-Reactive Nonreactive [facility] Hepatitis C Antibody Non-Reactive Nonreactive [facility] Comment on above: Non Reactive: < 0.8 Equivocal: >/= 0.8 to < 1.0 Reactive: >/= 1.0The CDC recommends that a reactive/equivocal HCV antibody result be followed up by the HCV Nucleic Acid Amplificationtest (668642) Serum hepatitis B virus surf deisy antibody IgG detectionOrdered By: Dr. Flores on 08-26-2022 HBV surface IgG Ql (S) Non-Reactive [facility] Comment on above: Non Reactive: Incons istent with immunity less than <10 mIU/mL Reactive: Consistent with immunity greater than or equal to 10 mIU/mL Vital Signs Date Time Vital Sign Value Performing Clinician Facility 11-15-2024 15:16-0400 Body mass index (BMI) [Ratio] 37.94 kg/m2 Sara Bergeron APRN.BEER MAKER Work Phone: [facility] 11-15-2024 15:16-0400 Body weight 103.42 kg Sara Bergeron APRN.BEER MAKER Work Phone: [facility] 11-15-2024 15:16-0400 Diastolic blood pressure 73 mm[Hg] Sara Bergeron APRN.BEER MAKER Work Phone: [facility] 11-15-2024 15:16-0400 Heart rate 56 /min Sara Bergeron APRN.BEER MAKER Work Phone: [facility] 11-15-2024 15:16-0400 SaO2% (BldA) [Mass fraction] 99 % Sara Bergeron APRN.BEER MAKER Work Phone: [facility] 11-15-2024 15:16-0400 Systolic blood pressure 107 mm[Hg] Sara Bergeron APRN.BEER MAKER Work Phone: [facility] 09-27-2024 15:03-0500 Body mass index (BMI) [Ratio] 38.27 kg/m2 Sara Bergeron APRN.BEER MAKER Work Phone: [facility] 09-27-2024 15:03-0500 Body weight 104.33 kg Sara Bergeron APRN.BEER MAKER Work Phone: [facility] 09-27-2024 15:03-0500 Diastolic blood pressure 55 mm[Hg] Sara Bergeron APRN.BEER MAKER Work Phone: [facility] 09-27-2024 15:03-0500 Heart rate 52 /min Sara Bergeron APRN.BEER MAKER Work Phone: [facility] 09-27-2024 15:03-0500 SaO2% (BldA) [Mass fraction] 100 % Sara Bergeron POULTRY PROCESSOR.BEER MAKER Work Phone: [facility] 09-27-2024 15:03-0500 Systolic blood pressure 91 mm[Hg] Sara Bergeron POULTRY PROCESSOR.BEER MAKER Work Phone: [facility] 08-23-2024 14:45-0500 Body mass index (BMI) [Ratio] 36.61 kg/m2 Alta [place] POULTRY PROCESSOR.BEER MAKER Work Phone: [facility] 08-23-2024 14:45-0500 Body weight 99.79 kg Alta [place] POULTRY PROCESSOR.BEER MAKER Work Phone: [facility] 08-23-2024 14:45-0500 Diastolic blood pressure 74 mm[Hg] Alta [place] POULTRY PROCESSOR.BEER MAKER Work Phone: [facility] 08-23-2024 14:45-0500 Heart rate 76 /min Alta [place] POULTRY PROCESSOR.BEER MAKER Work Phone: [facility] 08-23-2024 14:45-0500 Respiratory rate 16 /min Alta [place] POULTRY PROCESSOR.BEER MAKER Work Phone: [facility] 08-23-2024 14:45-0500 SaO2% (BldA) [Mass fraction] 97 % [place]ta [place] POULTRY PROCESSOR.BEER MAKER Work Phone: [facility] 08-23-2024 14:45-0500 Systolic blood pressure 120 mm[Hg] [place]ta [place] POULTRY PROCESSOR.BEER MAKER Work Phone: [facility] 06-24-2024 15:45-0500 Body temperature 97.7 [degF] Krystina Jacques MD Work Phone: [facility] 06-17-2024 16:10-0400 Body height 165.1 cm Krystina Jacques MD Work Phone: [facility] 06-17-2024 16:10-0400 Body mass index (BMI) [Ratio] 37.94 kg/m2 Krystina Jacques MD Work Phone: [facility] 06-17-2024 16:10-0400 Body weight 103.42 kg Krystina Jacques MD Work Phone: [facility] 06-17-2024 16:10-0400 Diastolic blood pressure 76 mm[Hg] Krystina Jacques MD Work Phone: [facility] 06-17-2024 16:10-0400 Heart rate 70 /min Krystina Jacques MD Work Phone: [facility] 06-17-2024 16:10-0400 Respiratory rate 16 /min Krystina Jacques MD Work Phone: [facility] 06-17-2024 16:10-0400 SaO2% (BldA) [Mass fraction] 99 % Krystina Jacques MD Work Phone: [facility] 06-17-2024 16:10-0400 Systolic blood pressure 112 mm[Hg] Krystina Jacques MD Work Phone: [facility] 06-10-2024 10:38-0400 Body height 165.1 cm Krystina Jacques MD Work Phone: [facility] 06-10-2024 10:38-0400 Body mass index (BMI) [Ratio] 37.91 kg/m2 Krystina Jacques MD Work Phone: [facility] 06-10-2024 10:38-0400 Body temperature 97.39 [degF] Krystina Jacques MD Work Phone: [facility] 06-10-2024 10:38-0400 Body weight 103.33 kg Krystina Jacques MD Work Phone: [facility] 06-10-2024 10:38-0400 Diastolic blood pressure 69 mm[Hg] Krystina Jacques MD Work Phone: [facility] 06-10-2024 10:38-0400 Heart rate 82 /min Krystina Jacques MD Work Phone: [facility] 06-10-2024 10:38-0400 SaO2% (BldA) [Mass fraction] 98 % Krystina Jacques MD Work Phone: [facility] 06-10-2024 10:38-0400 Systolic blood pressure 106 mm[Hg] Krystina Jacques MD Work Phone: [facility] 06-07-2024 09:14-0400 Body mass index (BMI) [Ratio] 38.11 kg/m2 Marty Patterson APRN.BEER MAKER Work Phone: [facility] 06-07-2024 09:14-0400 Body weight 100.7 kg Marty Patterson APRN.BEER MAKER Work Phone: [facility] 06-07-2024 09:14-0400 Diastolic blood pressure 72 mm[Hg] Marty Patterson APRN.BEER MAKER Work Phone: [facility] 06-07-2024 09:14-0400 Heart rate 88 /min Marty Patterson APRN.BEER MAKER Work Phone: [facility] 06-07-2024 09:14-0400 Respiratory rate 14 /min Marty Patterson APRN.BEER MAKER Work Phone: [facility] 06-07-2024 09:14-0400 SaO2% (BldA) [Mass fraction] 96 % Marty Patterson APRN.BEER MAKER Work Phone: [facility] 06-07-2024 09:14-0400 Systolic blood pressure 110 mm[Hg] Marty Patterson APRN.BEER MAKER Work Phone: [facility] 05-23-2024 13:59-0400 Body mass index (BMI) [Ratio] 39.31 kg/m2 Sara Bergeron APRN.BEER MAKER Work Phone: [facility] 05-23-2024 13:59-0400 Body weight 103.87 kg Sara Bergeron APRN.BEER MAKER Work Phone: [facility] 05-23-2024 13:59-0400 Diastolic blood pressure 74 mm[Hg] Sara Bergeron APRN.BEER MAKER Work Phone: [facility] 05-23-2024 13:59-0400 Heart rate 72 /min Sara Bergeron APRN.BEER MAKER Work Phone: [facility] 05-23-2024 13:59-0400 SaO2% (BldA) [Mass fraction] 96 % Sara Bergeron APRN.BEER MAKER Work Phone: [facility] 05-23-2024 13:59-0400 Systolic blood pressure 122 mm[Hg] Sara Bergeron POULTRY PROCESSOR.BEER MAKER Work Phone: [facility] 04-24-2024 16:24-0400 Diastolic blood pressure 76 mm[Hg] Marty Hamalachi POULTRY PROCESSOR.BEER MAKER Work Phone: [facility] 04-24-2024 16:24-0400 Heart rate 66 /min Marty Patterson POULTRY PROCESSOR.BEER MAKER Work Phone: [facility] 04-24-2024 16:24-0400 Respiratory rate 14 /min Marty Patterson POULTRY PROCESSOR.BEER MAKER Work Phone: [facility] 04-24-2024 16:24-0400 SaO2% (BldA) [Mass fraction] 92 % Marty Patterson POULTRY PROCESSOR.BEER MAKER Work Phone: [facility] 04-24-2024 16:24-0400 Systolic blood pressure 106 mm[Hg] Marty Hamalachi POULTRY PROCESSOR.BEER MAKER Work Phone: [facility] 04-24-2024 15:52-0400 Body mass index (BMI) [Ratio] 39.14 kg/m2 Marty Hamalachi POULTRY PROCESSOR.BEER MAKER Work Phone: [facility] 04-24-2024 15:52-0400 Body weight 103.42 kg Marty Hamalachi POULTRY PROCESSOR.BEER MAKER Work Phone: [facility] 04-03-2024 14:52-0400 Body mass index (BMI) [Ratio] 39.31 kg/m2 Sara Bergeron POULTRY PROCESSOR.BEER MAKER Work Phone: [facility] 04-03-2024 14:52-0400 Body weight 103.87 kg Sara Bergeron POULTRY PROCESSOR.BEER MAKER Work Phone: [facility] 04-03-2024 14:52-0400 Diastolic blood pressure 62 mm[Hg] Sara Bergeron POULTRY PROCESSOR.BEER MAKER Work Phone: [facility] 04-03-2024 14:52-0400 Heart rate 64 /min Sara Bergeron APRN.BEER MAKER Work Phone: [facility] 04-03-2024 14:52-0400 SaO2% (BldA) [Mass fraction] 99 % Sara Bergeron APRN.BEER MAKER Work Phone: [facility] 04-03-2024 14:52-0400 Systolic blood pressure 114 mm[Hg] Sara Bergeron APRN.BEER MAKER Work Phone: [facility] 03-15-2024 14:25-0400 Body height 162.6 cm Sara Bergeron APRN.BEER MAKER Work Phone: [facility] 03-15-2024 14:25-0400 Body mass index (BMI) [Ratio] 39.48 kg/m2 Sara Bergeron APRN.BEER MAKER Work Phone: [facility] 03-15-2024 14:25-0400 Body weight 104.33 kg Sara Bergeron APRN.BEER MAKER Work Phone: [facility] 03-15-2024 14:25-0400 Diastolic blood pressure 64 mm[Hg] Sara Bergeron APRN.BEER MAKER Work Phone: [facility] 03-15-2024 14:25-0400 Systolic blood pressure 108 mm[Hg] Sara Bergeron APRN.BEER MAKER Work Phone: [facility] 02-15-2024 13:55-0400 Body mass index (BMI) [Ratio] 39.44 kg/m2 Sara Bergeron APRN.BEER MAKER Work Phone: [facility] 02-15-2024 13:55-0400 Body weight 104.78 kg Sara Bergeron APRN.BEER MAKER Work Phone: [facility] 02-15-2024 13:55-0400 Diastolic blood pressure 72 mm[Hg] Sara Bergeron APRN.BEER MAKER Work Phone: [facility] 02-15-2024 13:55-0400 Heart rate 54 /min Sara Bergeron APRN.BEER MAKER Work Phone: [facility] 02-15-2024 13:55-0400 SaO2% (BldA) [Mass fraction] 94 % Sara Bergeron APRN.BEER MAKER Work Phone: [facility] 02-15-2024 13:55-0400 Systolic blood pressure 112 mm[Hg] Sara Bergeron APRN.BEER MAKER Work Phone: [facility] 01-16-2024 12:55-0400 Body height 163 cm Sara Bergeron APRN.BEER MAKER Work Phone: [facility] 01-16-2024 12:55-0400 Body mass index (BMI) [Ratio] 38.93 kg/m2 Sara Bergeron APRN.BEER MAKER Work Phone: [facility] 01-16-2024 12:55-0400 Body weight 103.42 kg Sara Bergeron APRN.BEER MAKER Work Phone: [facility] 01-16-2024 12:55-0400 Diastolic blood pressure 68 mm[Hg] Sara Bergeron APRN.BEER MAKER Work Phone: [facility] 01-16-2024 12:55-0400 Heart rate 65 /min Sara Bergeron APRN.BEER MAKER Work Phone: [facility] 01-16-2024 12:55-0400 SaO2% (BldA) [Mass fraction] 97 % Sara Bergeron APRN.BEER MAKER Work Phone: [facility] 01-16-2024 12:55-0400 Systolic blood pressure 104 mm[Hg] Sara Bergeron APRN.BEER MAKER Work Phone: [facility] 12-04-2022 10:26-0400 Body temperature 98.29 [degF] Shannon Bridges APRN.BEER MAKER Work Phone: [facility] 12-04-2022 10:26-0400 Body weight 90.27 kg Shannon Bridges APRN.BEER MAKER Work Phone: [facility] 12-04-2022 10:26-0400 Diastolic blood pressure 70 mm[Hg] Shannon Praisler-Wood POULTRY PROCESSOR.BEER MAKER Work Phone: [facility] 12-04-2022 10:26-0400 Heart rate 70 /min Shannon Praisler-Wood POULTRY PROCESSOR.BEER MAKER Work Phone: [facility] 12-04-2022 10:26-0400 Respiratory rate 16 /min Shannon Praisler-Wood POULTRY PROCESSOR.BEER MAKER Work Phone: [facility] 12-04-2022 10:26-0400 SaO2% (BldA) [Mass fraction] 97 % Shannon Praisler-Wood POULTRY PROCESSOR.BEER MAKER Work Phone: [facility] 12-04-2022 10:26-0400 Systolic blood pressure 122 mm[Hg] Shannon Praisler-Wood POULTRY PROCESSOR.BEER MAKER Work Phone: [facility] 08-24-2022 16:31-0500 Body height 165.1 cm [facility] 08-24-2022 16:31-0500 Body mass index (BMI) [Ratio] 34.1 kg/m2 [facility] 08-24-2022 16:31-0500 Body temperature 97 [degF] [facility] 08-24-2022 16:31-0500 Body weight 93 kg [facility] 08-24-2022 16:31-0500 Diastolic blood pressure 61 mm[Hg] [facility] 08-24-2022 16:31-0500 Heart rate 68 /min [facility] 08-24-2022 16:31-0500 Respiratory rate 14 /min [facility] 08-24-2022 16:31-0500 SaO2% (BldA) [Mass fraction] 99 % [facility] 08-24-2022 16:31-0500 Systolic blood pressure 109 mm[Hg] [facility] Encounters Encounter Date Encounter Type Care Provider Facility Start: 12-30-2024 End: 12-30-[address] Loi Tran MD Work Phone: [facility] Work Phone: Start: 12-30-2024 End: 12-30-[address] Loi Tran MD -Cardiovascular Services Work Phone: Start: 12-30-2024 End: 12-30-2024 ambulatory Loi Tran Facility:[facility] Start: 12-14-2024 End: 12-15-2024 Emergency department patient visit LIZA M ZIA Facility:[facility] Start: 11-15-2024 End: 11-15-2024 ambulatory SARA BERGERON Facility:[facility] Start: 11-15-2024 End: 11-15-2024 Patient encounter procedure Sara Bergeron APRN.BEER MAKER Work Phone: OB/Gynecology Comment on above: Prediabetes (Primary Dx); Intractable migraine without aura and without status migrainosus; Class 2 obesity with body mass index (BMI) of 38.0 to 38.9 in adult, unspecified obesity type, unspecified whether serious comorbidity present Start: 09-27-2024 End: 09-27-2024 ambulatory SARA GILMORE Facility:[facility] Start: 09-27-2024 End: 09-27-2024 Patient encounter procedure Sara Bergeron APRN.BEER MAKER Work Phone: OB/Gynecology Comment on above: Prediabetes (Primary Dx); Intractable migraine without aura and without status migrainosus; Class 2 obesity with body mass index (BMI) of 38.0 to 38.9 in adult, unspecified obesity type, unspecified whether serious comorbidity present Start: 08-23-2024 End: 08-23-2024 ambulatory SARA GILMORE Facility:[facility] Start: 08-23-2024 End: 08-23-2024 Patient encounter procedure Alta Patel POULTRY PROCESSOR.BEER MAKER Work Phone: OB/Gynecology Comment on above: Prediabetes (Primary Dx); Class 2 obesity with body mass index (BMI) of 38.0 to 38.9 in adult, unspecified obesity type, unspecified whether serious comorbidity present Start: 08-13-2024 End: 08-13-2024 ambulatory SARA GILMORE Facility:[facility] Start: 07-08-2024 End: 07-08-2024 ambulatory SARA GILMORE Facility:[facility] Start: 07-08-2024 End: 07-08-2024 Nursing evaluation of patient and report Nurse Tod [facility] Work Phone: General Surgery Comment on above: Sebaceous cyst (Prim derick Dx) Start: 07-01-2024 End: 07-01-2024 ambulatory KRYSTINA JACQUES Facility:[facility] Start: 07-01-2024 End: 07-01-2024 Patient encounter procedure Krystina Jacques MD Work Phone: General Surgery Comment on above: Sebaceous cyst (Prim derick Dx) Start: 06-24-2024 End: 06-24-2024 Patient encounter procedure Krystina Jacques MD Work Phone: General Surgery Comment on above: Infected sebaceous c yst (Primary Dx) Start: 06-24-2024 End: 06-24-2024 ambulatory KRYSTINA JACQUES Facility:[facility] Start: 06-17-2024 End: 06-17-2024 ambulatory KRYSTINA JACQUES Facility:[facility] Start: 06-17-2024 End: 06-17-2024 Patient encounter procedure Krystina Jacques MD Work Phone: General Surgery Comment on above: Infected sebaceous c yst (Primary Dx) Start: 06-10-2024 End: 06-10-2024 ambulatory MARTY PATTERSON Facility:[facility] Start: 06-10-2024 End: 06-10-2024 Patient encounter procedure Krystina Jacques MD Work Phone: General Surgery Comment on above: Breast abscess Start: 06-07-2024 End: 06-07-2024 ambulatory SARA GILMORE Facility:[facility] Start: 06-07-2024 End: 06-07-2024 Patient encounter procedure Marty Patterson APRN.BEER MAKER Work Phone: OB/Gynecology Comment on above: Surveillance of prev iously prescribed intrauterine contraceptive device (Primary Dx); Breast abscess Start: 05-23-2024 End: 05-23-2024 ambulatory Sara Bergeron APRN.CNP Work Phone: OB/Gynecology Comment on above: Weight loss Start: 05-23-2024 End: 05-23-2024 E-mail encounter from caregiver Sara Bergeron APRN.CNP Work Phone: OB/Gynecology Start: 05-23-2024 End: 05-23-2024 Patient encounter procedure Sara Bergeron APRN.CNP Work Phone: OB/Gynecology Comment on above: Prediabetes (Primary Dx); Intractable migraine without aura and without status migrainosus; Class 2 obesity with body mass index (BMI) of 38.0 to 38.9 in adult, unspecified obesity type, unspecified whether serious comorbidity present Start: 04-24-2024 End: 04-24-2024 ambulatory SARA GILMORE Facility:[facility] Start: 04-24-2024 End: 04-24-2024 Subsequent hospital visit by physician [facility] Comment on above: Mass of upper inner quadrant of left breast [N63.22] Start: 04-24-2024 End: 04-24-2024 Patient encounter procedure Marty Patterson APRN.CNP Work Phone: OB/Gynecology Comment on above: Encounter for IUD in sertion (Primary Dx) Encounter for screen ing mammogram for malignant neoplasm of breast (Primary Dx) Start: 04-03-2024 End: 04-03-2024 ambulatory SARA GILMORE Facility:[facility] Start: 04-03-2024 End: 04-03-2024 Office outpatient visit 25 minutes Sara Bergeron APRN.CNP Work Phone: OB/Gynecology Comment on above: Prediabetes (Primary Dx); Intractable migraine without aura and without status migrainosus; Class 2 obesity with body mass index (BMI) of 38.0 to 38.9 in adult, unspecified obesity type, unspecified whether serious comorbidity present Start: 03-15-2024 End: 03-15-2024 ambulatory SARA BERGERON Facility:[facility] Start: 03-15-2024 End: 03-15-2024 Patient encounter procedure Sara Bergeron APRN.CNP Work Phone: OB/Gynecology Comment on above: Encounter for gyneco logical examination with abnormal finding (Primary Dx); Mass of upper inner quadrant of left breast; General counseling and advice for contraceptive management; Screen for STD (sexually transmitted disease); Encounter for Papanicolaou smear for cervical cancer screening; Screening for human papillomavirus (HPV) Start: 03-15-2024 End: 03-15-2024 Patient encounter status Sara Bergeron APRN.CNP Work Phone: [facility] Work Phone: Start: 02-15-2024 End: 02-15-2024 ambulatory SARA BERGERON Facility:[facility] Start: 02-15-2024 End: 02-15-2024 Office outpatient visit 25 minutes Sara Bergeron APRN.CNP Work Phone: OB/Gynecology Comment on above: Prediabetes (Primary Dx); Intractable migraine without aura and without status migrainosus; Class 2 obesity with body mass index (BMI) of 38.0 to 38.9 in adult, unspecified obesity type, unspecified whether serious comorbidity present Start: 02-12-2024 End: 02-12-2024 ambulatory SARA BERGERON Facility:[facility] Start: 01-16-2024 End: 01-16-2024 ambulatory SARA BERGERON Facility:[facility] Start: 01-16-2024 End: 01-16-2024 Patient encounter procedure Sara Bergeron APRN.CNP Work Phone: OB/Gynecology Comment on above: Prediabetes (Primary Dx); Malaise and fatigue; Screening cholesterol level; Screening for deficiency anemia; Screening for diabetes mellitus; Screening for metabolic disorder; Screening for thyroid disorder; Encounter for vitamin deficiency screening; Class 2 obesity with body mass index (BMI) of 38.0 to 38.9 in adult, unspecified obesity type, unspecified whether serious comorbidity present Start: 12-04-2022 End: 12-04-2022 Patient encounter procedure Shannon Bridges APRN.CNP Work Phone: [facility] Comment on above: Abrasion of left cor franklin, initial encounter (Primary Dx) Start: 08-26-2022 End: 08-26-2022 ambulatory [facility] Work Phone: Start: 08-26-2022 End: 08-26-2022 Patient encounter procedure [facility]Mayra Schwartz Start: 08-24-2022 End: 08-24-2022 Emergency department patient visit [facility]-Emergency Department Procedures Date Procedure Procedure Detail Performing Clinician Start: 07-01-2024 Level iii surg patho logy gross&microscopic exam Krystina Jacques MD Work Phone: Start: 04-24-2024 UA DIP,URINE HCG (POC) Marty Patterson APRN.BEER MAKER Work Phone: Start: 04-24-2024 Us breast uni real t elva with image limited Sara Bergeron APRN.BEER MAKER Work Phone: Start: 04-24-2024 Digital breast tomosynthesis bilateral Sara Bergeron APRN.BEER MAKER Work Phone: Start: 02-12-2024 Lipid 1996 panel - S bruce or Plasma Alta Patel APRN.BEER MAKER Work Phone: Plan of Treatment Date Care Activity Detail Author Start: 03-15-2029 Screening for malign ant neoplasm of cervix Cervical Cancer Screening [facility] Start: 02-11-2029 Lipid panel Lipid Screening [facility] Start: 12-26-2028 Urine microalbumin profile DTaP,Tdap,Td Vaccine (2 - Td or Tdap) [facility] Start: 08-13-2027 Diabetes Screening Diabetes Screenin g [facility] Start: 04-30-2025 End: 04-30-2025 Patient encounter procedure 04/30/2025 3:40 PM EDT Appointment Mammogram [address] [place] [address] Encounter for screening mammogram for malignant neoplasm of breast [Z12.31] Mammogram Comment on above: Encounter for screen ing mammogram for malignant neoplasm of breast [Z12.31] Start: 04-24-2025 Screening for malign ant neoplasm of breast Mammogram Screening [facility] Start: 03-18-2025 End: 03-18-2025 Patient encounter procedure 03/18/2025 10:30 AM EDT Office Visit OB/Gynecology [address] [place] [address] Sara Bergeron APRN.BEER MAKER [address] [place] [address] Annual OB/Gynecology Comment on above: Annual Start: 02-25-2025 End: 02-25-2025 Patient encounter procedure 02/25/2025 4:00 PM EDT Office Visit OB/Gynecology [address] [place] [address] Sara Bergeron, POULTRY PROCESSOR.BEER MAKER [address] [place] [address] 3 month follow up for weight management OB/Gynecology Comment on above: 3 month follow up fo r weight management Start: 11-15-2024 End: 11-15-2024 Patient encounter procedure OB/Gynecology Comment on above: wt mgmt f/u Start: 09-27-2024 End: 09-27-2024 Patient encounter procedure 09/27/2024 3:00 PM EST Office Visit OB/Gynecology [address] [place] [address] Sara Bergeron APRN.BEER MAKER [address] [place] [address] wt mgmt f/u OB/Gynecology Comment on above: wt mgmt f/u Start: 08-23-2024 End: 08-23-2024 Patient encounter procedure OB/Gynecology Comment on above: wt mgmt f/u wt mgmt f/u- ok per Juan Bergeron Start: 2024 Screening for malign ant neoplasm of colon [facility] Start: 07-08-2024 End: 07-08-2024 Nursing evaluation of patient and report 07/08/2024 4:30 PM EST Nurse Visit General Surgery [address] [place] [address] Wstr, Nurse Gens [facility] [address] [place] [address] suture removal, review path. General Surgery Comment on above: suture removal, revi ew path. Start: 07-01-2024 End: 07-01-2024 Patient encounter procedure 07/01/2024 3:00 PM EST Office Visit General Surgery [address] [place], [place] [id number] Krystina Jacques MD [address] [place] [phone] 30 min office surgery skin cyst General Surgery Comment on above: 30 min office surger y skin cyst Start: 06-24-2024 End: 06-24-2024 Patient encounter procedure 06/24/2024 4:00 PM EST Office Visit General Surgery [address] [place], [place] [id number] Krystina Jacques MD [address] [place] [phone] F/U General Surgery Comment on above: F/U Start: 06-23-2024 End: 08-20-2024 Basic metabolic 2000 panel - Serum or Plasma BASIC METABOLIC PANEL Lab Routine Prediabetes Class 2 obesity with body mass index (BMI) of 38.0 to 38.9 in adult, unspecified obesity type, unspecified whether serious comorbidity present Expected: 06/23/2024, Expires: 08/20/2024 [facility] Work Phone: Comment on above: Expected: 06/23/2024 , Expires: 08/20/2024 Start: 06-21-2024 End: 06-21-2024 ambulatory 06/21/2024 3:00 PM EDT Procedure OB/Gynecology [address] [place], [place] [phone] Remote, Pit Crew Support [facility] [address] [place], [place] [phone] Surveillance of previously prescribed intrauterine contraceptive device [Z30.431] OB/Gynecology Comment on above: Surveillance of prev iously prescribed intrauterine contraceptive device [Z30.431] Start: 06-17-2024 End: 06-17-2024 Patient encounter procedure 06/17/2024 4:00 PM EDT Office Visit General Surgery [address] [place] [address] Krystina Jacques MD [address] [place] [phone] F/U BREAST General Surgery Comment on above: F/U BREAST Start: 06-11-2024 End: 06-11-2024 Patient encounter procedure 06/11/2024 1:00 PM EDT Appointment Radiology [address] [place] [address] Breast abscess [N61.1] Radiology Comment on above: Breast abscess [N61. 1] Start: 06-10-2024 End: 06-10-2024 Patient encounter procedure 06/10/2024 10:45 AM EDT Office Visit General Surgery [address] [place] [address] Krystina Jacques MD [address] [place] [phone] Breast Lump/abscess consult General Surgery Comment on above: Breast Lump/abscess consult Start: 06-07-2024 End: 06-07-2025 US Pelvis PELVIC US [facility] Anc Imaging Routine Surveillance of previously prescribed intrauterine contraceptive device Expected: 06/07/2024, Expires: 06/07/2025 [facility] Work Phone: Comment on above: Expected: 06/07/2024 , Expires: 06/07/2025 Start: 05-30-2024 End: 05-30-2024 Patient encounter procedure 05/30/2024 1:30 PM EDT Office Visit OB/Gynecology [address] [place] [address] Marty Patterson APRN.BEER MAKER [address] [place] [address] 5 wk IUD follow up OB/Gynecology Comment on above: 5 wk IUD follow up Start: 05-23-2024 End: 05-23-2024 Patient encounter procedure 05/23/2024 2:00 PM EDT Office Visit OB/Gynecology [address] [place] [address] Sara Bergeron APRN.BEER MAKER [address] [place] [address] weight mgmt OB/Gynecology Comment on above: weight mgmt Start: 04-24-2024 End: 04-24-2024 Patient encounter procedure Mammogram Comment on above: Mass of upper inner quadrant of left breast [N63.22] General counseling a nd advice for contraceptive management [Z30.09] Start: 04-21-2024 Covid-19 Vaccine ( season) Covid-19 Vaccine () [facility] Start: 04-21-2024 Covid-19 Vaccine ( season) Covid-19 Vaccine () [facility] Start: 04-21-2024 Influenza vaccination [facility] Start: 04-03-2024 End: 04-03-2024 Patient encounter procedure 04/03/2024 3:00 PM EDT Office Visit OB/Gynecology [address] [place] [address] Sara Bergeron APRN.BEER MAKER [address] [place] [address] wt mgmt f/u OB/Gynecology Comment on above: wt mgmt f/u Start: 03-15-2024 End: 03-15-2024 Patient encounter procedure OB/Gynecology Comment on above: New-Annual New-Annual. Depo alt ernatives Start: 02-28-2024 End: 02-28-2024 ambulatory 02/28/2024 2:[address] [facility] OB/Gynecology [address] [place] [address] Sara Luke APRN.BEER MAKER [address] [place] [address] wt mgmt f/u OB/Gynecology Comment on above: wt mgmt f/u Start: 01-16-2024 End: 04-16-2024 25-hydroxyvitamin D3 [Mass/volume] in Serum or Plasma VITAMIN D 25 HYDROXY Lab Routine Encounter for vitamin deficiency screening Class 2 obesity with body mass index (BMI) of 38.0 to 38.9 in adult, unspecified obesity type, unspecified whether serious comorbidity present Malaise and fatigue Expected: 01/16/2024, Expires: 04/16/2024 [facility] Work Phone: Comment on above: Expected: 01/16/2024 , Expires: 04/16/2024 Start: 01-16-2024 End: 04-16-2024 CBC panel - Blood by Automated count COMPLETE BLOOD COUNT Lab Routine Screening for deficiency anemia Class 2 obesity with body mass index (BMI) of 38.0 to 38.9 in adult, unspecified obesity type, unspecified whether serious comorbidity present Expected: 01/16/2024, Expires: 04/16/2024 [facility] Comment on above: Expected: 01/16/2024 , Expires: 04/16/2024 Start: 01-16-2024 End: 04-16-2024 Comprehensive metabolic 2000 panel - Serum or Plasma COMPREHENSIVE METABOLIC PANEL Lab Routine Prediabetes Screening for diabetes mellitus Screening for metabolic disorder Class 2 obesity with body mass index (BMI) of 38.0 to 38.9 in adult, unspecified obesity type, unspecified whether serious comorbidity present Expected: 01/16/2024, Expires: 04/16/2024 [facility] Comment on above: Expected: 01/16/2024 , Expires: 04/16/2024 Start: 01-16-2024 End: 04-16-2024 Hemoglobin A1c in Blood HEMOGLOBIN A1C Lab Routine Prediabetes Screening for diabetes mellitus Class 2 obesity with body mass index (BMI) of 38.0 to 38.9 in adult, unspecified obesity type, unspecified whether serious comorbidity present Expected: 01/16/2024, Expires: 04/16/2024 [facility] Comment on above: Expected: 01/16/2024 , Expires: 04/16/2024 Start: 01-16-2024 End: 04-16-2024 Insulin [Units/volume] in Serum or Plasma INSULIN ASSAY BLOOD Lab Routine Prediabetes Screening for diabetes mellitus Class 2 obesity with body mass index (BMI) of 38.0 to 38.9 in adult, unspecified obesity type, unspecified whether serious comorbidity present Expected: 01/16/2024, Expires: 04/16/2024 [facility] Comment on above: Expected: 01/16/2024 , Expires: 04/16/2024 Start: 01-16-2024 End: 04-16-2024 Lipid 1996 panel - Serum or Plasma LIPID PANEL BASIC Lab Routine Screening cholesterol level Class 2 obesity with body mass index (BMI) of 38.0 to 38.9 in adult, unspecified obesity type, unspecified whether serious comorbidity present Expected: 01/16/2024, Expires: 04/16/2024 [facility] Comment on above: Expected: 01/16/2024 , Expires: 04/16/2024 Start: 01-16-2024 End: 04-16-2024 Thyrotropin [Units/volume] in Serum or Plasma THYROID STIMULATING HORMONE Lab Routine Screening for thyroid disorder Class 2 obesity with body mass index (BMI) of 38.0 to 38.9 in adult, unspecified obesity type, unspecified whether serious comorbidity present Malaise and fatigue Expected: 01/16/2024, Expires: 04/16/2024 [facility] Comment on above: Expected: 01/16/2024 , Expires: 04/16/2024 Start: 08-21-2023 Behavioral Health Screening Behavioral Health Screening [facility] Start: 04-21-2023 Covid-19 Vaccine () Covid-19 Vaccine () [facility] Start: 04-21-2023 Influenza vaccination INFLUENZA (Sea son Ended) [facility] Start: 08-21-2022 DEPRESSION ASSESSMENT DEPRESSION ASS ESSMENT [facility] Start: 03-07-2021 COVID-19 VACCINE (3 - Booster for Moderna series) COVID-19 VACCINE (3 - Booster for Moderna series) [facility] Start: 2019 Mammography MAMMOGRAM [facility] Start: 2019 Screening for malign ant neoplasm of breast Mammogram Screening [facility] Start: 03-01-2010 PAP TESTING PAP TESTING [facility] Start: 03-01-2010 Screening for malign ant neoplasm of cervix Pap Testing [facility] Start: 2009 HPV TESTING HPV TESTING [facility] Start: 2009 Screening for malign ant neoplasm of cervix HPV Testing [facility] Start: 08-01-2008 Urine microalbumin profile DTAP,TDAP,TD (1 - Tdap) [facility] Start: 03-01-2008 Screening for malign ant neoplasm of cervix Cervical Cancer Screening [facility] Start: 1998 Hepatitis B Vaccine (1 of 3 - 19+ 3-dose series) Hepatitis B Vaccine (1 of 3 - 19+ 3-dose series) [facility] Start: 1998 Pneumococcal vaccination Pneumococcal Vaccine (1 of 2 - PCV) [facility] Start: 1997 Anxiety Screening Anxiety Screening [facility] Start: 1997 Depression Screening Depression Scre ening [facility] Start: 1997 HEPATITIS C SCREENING HEPATITIS C [facility] Start: 1997 Hepatitis C screening Hepatitis C [facility] Start: 1997 HIV SCREENING HIV SCREENING [facility] Start: 1997 HIV screening HIV Screening [facility] Start: 1985 Pneumococcal vaccination Pneumococcal Vaccine (1 of 2 - PCV) [facility] Start: 1979 HEPATITIS B (1 of 3 - 3-dose series) HEPATITIS B (1 of 3 - 3-dose series) [facility] Chlamydia trachomatis+Neisseria gonorrhoeae DNA [Presence] in Unspecified specimen by KVNG with probe detection GONORRHEA/CHLAMYDIA NAAT Lab Routine Screen for STD (sexually transmitted disease) 03/15/2024 3:14 PM EDT [facility] End: 05-24-2025 DBT Breast - bilateral screening MICHAEL SCREENING W EMILIA Radiology Routine Encounter for screening mammogram for malignant neoplasm of breast 1 Occurrences starting 04/24/2024 until 05/24/2025 [facility] Work Phone: Comment on above: 1 Occurrences starti ng 04/24/2024 until 05/24/2025 Insertion intrauteri ne device iud INSERT INTRAUTERINE DEVICE Procedures Routine General counseling and advice for contraceptive management Ordered: 03/15/2024 [facility] Work Phone: Comment on above: Ordered: 03/15/2024 End: 04-14-2025 MG Breast - bilateral Diagnostic MICHAEL DIAGNOSTIC BILATERAL Radiology Routine Mass of upper inner quadrant of left breast 1 Occurrences starting 03/15/2024 until 04/14/2025 [facility] Comment on above: 1 Occurrences starti ng 03/15/2024 until 04/14/2025 End: 07-07-2025 MG Breast - left Diagnostic for implant MICHAEL DIAGNOSTIC LEFT Radiology Routine Breast abscess 1 Occurrences starting 06/07/2024 until 07/07/2025 [facility] Comment on above: 1 Occurrences starti ng 06/07/2024 until 07/07/2025 PAP TEST PAP TEST Lab Bipin carvajal Encounter for Papanicolaou smear for cervical cancer screening Screening for human papillomavirus (HPV) 03/15/2024 3:14 PM EDT [facility] End: 04-14-2025 US Breast - left limited US BREAST LTD LEFT Radiology Routine Mass of upper inner quadrant of left breast 1 Occurrences starting 03/15/2024 until 04/14/2025 [facility] Comment on above: 1 Occurrences starti ng 03/15/2024 until 04/14/2025 End: 07-07-2025 US Breast - left limited US BREAST LTD LEFT Radiology Routine Breast abscess 1 Occurrences starting 06/07/2024 until 07/07/2025 [facility] Comment on above: 1 Occurrences starti ng 06/07/2024 until 07/07/2025 Immunizations Immunization Date Immunization Notes Care Provider Drew hu 06-09-2021 influenza virus vaccine, unspecified formulation Sara Bergeron APRN.BEER MAKER Work Phone: [facility] 07-31-2008 tetanus and diphther ia toxoids, adsorbed, preservative free, for adult use (2 Lf of tetanus toxoid and 2 Lf of diphtheria toxoid) Shannon Bridges APRN.CNP Work Phone: [facility] 07-29-2008 influenza virus vaccine, unspecified formulation Shannon Bridges APRN.CNP Work Phone: [facility] 07-29-2008 tuberculin skin test ; purified protein derivative solution, intradermal Marty Haury POULTRY PROCESSOR.BEER MAKER Work Phone: [facility] 07-06-2007 influenza virus vaccine, unspecified formulation Shannonchristiana Bridges POULTRY PROCESSOR.BEER MAKER Work Phone: [facility] Work Phone: 06-22-2005 influenza virus vaccine, unspecified formulation Shannonchristiana Bridges POULTRY PROCESSOR.BEER MAKER Work Phone: [facility] Payers Date Payer Category Payer Self-pay [id number] 2024 Unknown [id number] 2024 Private Health Insurance [employer] [id number] 2024 Private Health Insurance [id number] 2023 Unknown [id number] 2022 Unknown [id number] 2008 Medicaid MEDICAID [id number] Unknown ANTHEM [id number] Unknown [id number] Unknown [id number] Social History Date Type Detail Facility [facility]: [facility]04-[facility] Start: 1980 Sex Assigned At Female [facility] Start: 10-04-2017 Tobacco smoking stat us [facility]IS Ex-smoker [facility] End: 10-16-2016 History of tobacco use Current smoker [facility] End: 10-16-2016 History of tobacco use Cigarette Smoker [facility] Start: 10-04-2017 End: 04-24-2024 Tobacco use and exposure Smokeless tobacco non-user [facility] Start: 04-06-2022 Alcohol intake Current non-dr office executive of alcohol (finding) [facility] Start: 09-04-2010 End: 01-16-2024 Tobacco Comment one pack a week/ about 3 per day. [facility] Start: 1980 Sex Assigned At Not on file [facility] Start: 01-16-2024 End: 04-24-2024 Tobacco smoking status HIIS Smokes tobacco daily [facility] Start: 01-16-2024 End: 11-15-2024 Cigarettes smoked current (pack per day) - Reported 0.5 [facility] Start: 01-16-2024 End: 11-15-2024 Alcohol intake Current drinker of alcohol (finding) [facility] Start: 01-16-2024 End: 11-15-2024 Tobacco use panel [facility] National Score (1-100), lower number is lower risk 75 [facility] Start: 01-16-2024 Alcohol Comment occasionally o n weekends [facility] Start: 01-09-2024 Gender identity Identifies as female gender (finding) [facility] Start: 01-09-2024 Sexual orientation Heterosexual (fin luisa) [facility] Start: 03-15-2024 Tobacco Comment one pack a wee k/ about 8 per day. [facility] Start: 10-04-2017 [facility] day smoker [facility] NEGATED: Highlighted lee [facility] Work Phone: NEGATED: Highlighted lee [facility] Clinical Notes 12-04-2022 to 11-15-2024 Patient InstructionsSara Bergeron APRN.BEER MAKER - 11/15/2024 3:30 PM EDTPatient Sara Patel APRN.BEER MAKER - 09/27/2024 3:00 PM ESTMetkaitlinAltaJO ANN.[facility] - 08/23/2024 2:35 PM EST Note Date & Type Note Facility 11-15-2024 Instructions Sara Bergeron APRN.[facility] - 11/15/2024 4:07 PM EDT - Whole food balanced protein, controlled carbohydrate nutrition plan - 30 g of protein 3 times a day and up to 30 g of carbs at lunch and dinner only. Breakfast - 30 gm protein with limit of 2 gm carbohydrates. Options include: Premier Protein or generic 30 gm protein 1 gm sugar or 5 eggs or 2-3 eggs and some unbreaded meat and/or cheese. No fruit, vegetables, bread, grain, yogurt, Smoothies, etc. Lunch and dinner - 30 gm protein is the goal with less than 30 gm carbohydrates Snacks - all protein or more protein than carbs Protein - no carbs Egg 1 large - 6g Egg white 1 large 3.6g 3 oz is approximately the size of a deck of cards and equals 21 g protein so 4 oz is 28 gm protein Beef, Chicken, [place], Pork, Rodriguez 1 oz 7g Fish, Tuna Fish 1 oz 7g (Starkist tuna packet 2.6 oz 17 gm protein) Seafood (Crabmeat, Shrimp, Lobster) 1 oz 6g Protein shakes (read labels) Premier Protein or generic [employer]Mart Equate, [employer] High Performance- 30g protein & 1g carb - meal replacement Premier Protein powder or generic- 30 gm protein, 1g carb Premier Protein plant protein powder - 25 gm protein, 0 sugar/2 carb Vanilla and chocolate (not a meal replacement) Fairlife 30 gram protein - 30g protein & 3g carb BOOST Glucose Control Max 30g Protein Nutritional Drink - 30g protein & 1 carb - meal replacement Slimfast High Protein - 20g protein & 1g carb Ensure Max Protein Nutrition Shake 30g protein & 2 carb Protein AND carbs Beef/[place] Jerky 1 oz dried 10-15g protein - check carb count, can be high if sugar added Slim Herb - 6 gm protein and 4 net carb Great Value original turkey sausage sticks - 7 gm protein and 2 gm carb Beny & Davin (at [facility]) Original smoked sausage sticks - 8 gm protein and 0 carb Imitation Crab Meat 1 oz - 2g protein & 4g carb Milk, skim 2% or 1% 8 oz - 8g protein & 12g carb Fairlife 2% milk 8 oz -13 g protein & 6g carb Norwegian yogurt Full Fat Norwegian Yogurt 1 cup - 20.4g protein & 9.1g carb 2% Norwegian Yogurt 1 cup - 22.7g protein & 9.1g carb 0% (fat-free) Norwegian Yogurt - 1 cup 24g protein & 9.3g carb Aldi Protein Norwegian yogurt single svg - 13/g15g protein & 7g carb Chobani Zero Sugar single svg: - 12g protein & 5g carb Dannon Norwegian Light + Fit 1 single svg - 12g protein & 9g carb Oikos Pro single svg - 20g protein & 8g carb Oikos Triple Zero Norwegian Nonfat Yogurt 1 single svg - 15g protein & 7g carb Oikos Pro drinkable yogurt 1 single svg - 23 g protein & 8 g carb :ratio, KETO Friendly Dairy Snack 1 single svg - 15g protein & 2g carb :ratio Protein 1 single svg - 25g protein & 8g carb Two Good Lowfat Norwegian Yogurt, [place], Lower Sugar - 12g protein & 2g carb Yoplait Protein 1 single svg 15gm protein & 5gm carb Dairy Free - [place] unsweetened Norwegian almond/soy 15 gm protein & 3 gm carb Dairy Free - True Goodness by [facility] coconut-based yogurt alternative 1 gm protein 1 gm net carb 180 marian Cheese each oz Brie 5.9g protein & 0.1g carb Cheddar 7g protein & 0.4g carb Tai 6.7g protein & 0.7g carb Cream Cheese 1.7g protein & 1.2g carb Feta 4g protein & 1.2g carb Mozzarella 6.3g protein & 0.6g carb Parmesan 10g protein & 0.9g carb Estonian 7.6g protein & 1.5g carb Cottage Cheese 1/2 c Break[place] 2% 13g protein 7g carb [place] 2% 13g protein 5 g carb Good Culture 2% 14g protein 3g carb Tran s Low Fat 12g protein & 4g carb Legumes Lentils cup 9g protein & 20g carb Don[place]ue beans cup 7g protein & 20g carb Kidney, Black, [place], Cannellini beans cup 8g protein & 20g carb Soybeans 1/2 c 14g complete protein & 8.5g carb [place] milk, unsweetened 8 oz 1g protein & 2g carb Soy milk 8 oz 3.5g protein & 1.6g carb Tofu 1/2 cup 10g protein & 2.3g carb Peanut butter, natural 2 Tbsp 7-8g protein & 4g net carbs, 190 calories PB2 powder 2 Tbsp 6g protein & 5g carb Nuts and Seeds per oz Almonds - 5.9g protein & 6.1g carb [place] Nuts - 4.0g protein & 3.4g carb Cashews - 5.1g protein & 9.2g carb Hazelnuts - 4.2g protein & 4.7g carb Hemp seeds/hearts 3 T/30 gms - 9.5 gm complete protein and 2.5 gm carb Peanuts - 7g protein & 4.6g carb Pecans - 2.6g protein & 3.9g carb Pistachios - 5.8g protein & 7.8g carb Pumpkin Seeds - 6.9g protein & 5g carb [place] Seeds - 5.8g protein & 5.6g carb Walnuts - 4.3g protein & 3.8g carb Edamame Beans (soybean) snack 1 pack 11 gm complete protein 2 carb 5 (FIVE) gram carb vegetable options 1 cup raw OR cup cooked: Asparagus Trivedi sprouts Beets Broccoli Brussel sprouts Cabbage Carrots Cauliflower Celery [place] Eggplant Green beans Lettuce Peppers Snap peas Spaghetti squash Spinach Tomato Turnips Zucchini 15 gram carb vegetable options cup cooked corn or hominy corn on the cob, large (5 oz) cup cooked green peas 4.3 gm complete protein cup cooked donahue beans 1 small potato or sweet potato cup cooked potato, plain cup cooked sweet potato, plain 1 cup winter squash (pumpkin, acorn, butternut) 1 cup marinara or pasta sauce - check label cup tomato juice cup tomato puree Beans, Seeds, Nuts cup cooked beans (kidney, diamond, red, green, etc.) cup cooked lentils cup baked beans 4 tablespoons nut butter <15 gram carb fruit options Berries have the lowest sugar content 1/2 medium apple - 12.5 carbs 1/2 medium avocado - 6.5 gm carbs 1/2 medium banana - 15 carbs 1/2 cup blueberries - 11 carbs - may actually help you lose weight 1/2 cup fresh cherries -11 carbs 1 medium Tasha -9 carbs 1/2 cup fresh cranberries - 6.5 carbs 1/2 c grapes - 15 carbs 1/2 medium grapefruit - 10.5 carbs 1/2 cup diced honeydew melon - 8 carbs 1 medium kiwi without skin - 11 carbs 1/2 cup sliced julia -14 carbs 1 medium nectarine - 15 carbs 1 medium orange -15.5 carbs 1 medium peach -14.5 carbs 1/2 cup fresh pineapple -11 carbs 1 medium plum -7.5 carbs 1 prune - 6 carbs 1/4 c raisins - 31.25 carbs 1/2 cup raspberries -7.5 carbs 1/2 c strawberries - 12.7 carbs 1 medium tangerine -12 carbs 1/2 cup diced watermelon - 6 carbs Grains Brown rice 1/2 c 5.5g protein 24 carb White long-grain rice 1/2 c 2g protein 22.5 carb Quinoa 1/2 c 4 gm complete protein 25 carb Oatmeal, old fashioned 1/2 c 5g protein 27g carb High Protein Snack Ideas 1. Jerky 2. [place] mix without dried fruit 3. [place] roll-ups 4. Norwegian yogurt 5. Veggies and yogurt dip 6. Tuna 7. Hard-boiled eggs 8. Peanut butter with celery 9. Cheese slices/ Cheese Stick 10. Handful of almonds, peanuts or walnuts 11. Cottage Cheese 12. Beef sticks 13. Protein bars 14. Canned Dinosaur 15. Pumpkin seeds 16. Nut butter 17. Protein shakes 18. Avocado and chicken salad 19. Egg muffins 20. Leftover protein or lunch meat 21. 1/2 c blended cottage cheese or Norwegian yogurt with dry ranch/Mrs. Dash/herb seasoning mix to make protein dip 22. 1/2 c blended cottage cheese with 1 Tbsp sugar-free dry cheesecake pudding mix 12g protein 10 carb 23. Pudding - 1 30 gm protein shake with 1/2 pkg sugar-free pudding 4 svgs - 7.8 gm protein, 5 carb each svg 24. SF Sunkist or Root Beer with 1-2 Tablespoons heavy whipping cream 25. Mini frozen dessert bites - layer protein yogurt, skinny syrup and crushed nuts and freeze documented in this encounter [facility] 11-15-2024 History of Present illness Narrative Images from the original note were not included. Some documentation from previous visit of 09/27/2024 was copied and pasted, documentation has been reviewed and edited as necessary for today's visit. Patient Summary: Melanie is a 44 year old Female who presents for follow-up evaluation of obesity/weight management to treat and prevent related co-morbidities. In our previous visits we have discussed lifestyle intervention including a nutrition recommendations and physical activity optimization. Her last office visit was 6 weeks ago. Assessment/plan from last visit: - Topiramate 50 mg twice a day and - Metformin ER 500 mg -2 gm daily at one meal - 37.5 mg tab <5% BWL -- initially noticed increased thoughts of food, unsure about hunger for weeks after discontinuing. Interval History PT specifies the following items as new or significant updates since the last appointment: More headaches - 4 a week. All foods have a weird taste. Feels sick for a little while after eating at all meals. Did not qualify for long-term phentermine due to losing 4% TBW but felt that it decreased her hunger and would like to try it again when able which is February,. Weight loss since last vist: 2 lbs Date: Weight: BMI: Medications: 11/15/2024 228 lb 37.94 09/27/2024 230 lb 38.27 metformin dose increase, topiramate 50 mg 08/23/2024 220 lb 36.61 topiramate 25 mg DC <5% 05/23/2024 229 lb 39.31 phentermine 37.5 04/03/2024 229 lb 39.31 metformin ER 1 gm 02/15/2024 231 lb 39.44 metformin ER 500 mg 01/16/2024 228 lb 38.93 WC: 42 in 5% weight loss = 217 lbs, 10% weight loss = 206 lbs Anti-obesity medications: metformin Benefit:less hunger, a little increased fullness Adverse effects: none Topiramate Benefit: none noted AE: decarbonation of pop Weight promoting medications: none Previous Diet (initial appointment): Low carb during the work week. WE - up late morning. Lunch first meal but same. Awake - 0515 0600 Diet Coke B - 8-9 am meat and cheese snacks or jerky or occasionally PB crackers S - none L - 1200 meat and cheese with raw veg or salad with meat/Ranch dressing S - no D - 6-8 pm Salad with meat or grilled chicken and broccoli or pizza rolls or chicken nuggets if nothing prepared or easy to prepare Eats out on WE - Nauruan, pizza, [place] S - occasional 8-10 pm chips/dip or popcorn Fluids - Diet Coke, occasional water. Alcohol one WE night - whiskey or coconut rum or cider beer Bedtime - Quality of diet: 24hr recall suggests somewhat healthy diet. Characterization of diet:Structured, excessive cravings, and evening snacking. 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:lack of satiety, mindlessness , and boredom Eating Disorder no Cravings: chips and dip Dietary changes: [id number] B - 0830-9 am 2 eggs and sometimes a sausage anselmo or Pop Trey egg cup 22 g protein WE - eggs and meat OR SKIP S - sometimes nuts or meat and cheese or cottage cheese or Oikos Pro or Pro drinkable L - 12-1 pm meat cheese, raw veg or salad with protein/eggs with Ranch/egg salad or WE left overs protein with vegetables, usually raw or steamed, sometimes small amount rice or potato S - none D - [id number] fresh protein with salad or low-carb veg/sometimes baked potato/small amount pasta/rice Eating out - [place] grilled chicken/shrimp with lettuce, sour cream, chips and salsa or burger or protein with side salad with Ranch and sometimes 1/2 baked potato with skin or salad and wings S - nuts or pepperoni or meat/cheese snacks or dill pickle Fluids - water. Alcohol 0-1 WE night - whiskey or coconut rum Current Barriers: lack of motivation and reduced physical activity AVERSION to protein shakes Exercise: stable active at home and work - bowling every 2 weeks Exercise: Has gym at home - but has not been home much Regular exercise: no Strength/resistance exercise:yes Barriers to regular exercise? no Work-related activity:Sedentary. Gym Membership: no Activity Tracker: yes Stress: increased work Sleep: stable Duration: 7 hours FISH NO ; CPAP NO Estimated Creatinine Clearance: 94.6 mL/min (based on SCr of 0.9 mg/dL). PAST MEDICAL HISTORY Diagnosis Date Migraine without aura, without mention of intractable migraine without mention of status migrainosus 07/22/2005 Sebaceous cyst of breast Current Outpatient Medications Medication Sig Dispense Refill metFORMIN ER (GLUCOPHAGE XR) 500 mg 24 hr tablet Take 2 tablets by mouth two times a day with meals. 360 tablet 3 topiramate (TOPAMAX) 50 mg tablet Take 1 tablet by mouth two times a day. 180 tablet 1 psyllium seed, with sugar, (FIBER ORAL) Take by mouth. levonorgestrel (MIRENA) 21 mcg/24 hr (8 yrs) 52 mg IUD 1 Each by INTRAUTERINE route as directed. 1 Each 0 No current facility-administered medications for this visit. 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 No distress. Results: recent labs reviewed with the patient. Latest Ref Rng & Units 08/13/2024 CMP Sodium 136 - 144 mmol/L 139 Potassium 3.7 - 5.1 mmol/L 4.0 Chloride 98 - 107 mmol/L 105 CO2 22 - 30 mmol/L 25 Glucose 74 - 99 mg/dL 103 BUN 7 - 21 mg/dL 14 Creatinine 0.58 - 0.96 mg/dL 0.90 EGFR >=60 mL/min/1.73m 81 Calcium 8.5 - 10.2 mg/dL 9.7 Cholesterol, Total (mg/dL) Date Value 02/12/2024 151 HDL Cholesterol (mg/dL) Date Value 02/12/2024 51 LDL Cholesterol (mg/dL) Date Value 02/12/2024 88 Triglyceride (mg/dL) Date Value 02/12/2024 60 Latest Ref Rng & Units 02/12/2024 CBC WBC 3.70 - 11.00 k/uL 7.55 RBC 3.90 - 5.20 m/uL 4.28 Hemoglobin 11.5 - 15.5 g/dL 13.3 Hematocrit 36.0 - 46.0 % 38.4 MCV 80.0 - 100.0 fL 89.7 MCH 26.0 - 34.0 pg 31.1 MCHC 30.5 - 36.0 g/dL 34.6 RDW-CV 11.5 - 15.0 % 12.5 Platelet Count 150 - 400 k/uL 239 MPV 9.0 - 12.7 fL 10.3 Vitamin D 25 Hydroxy Date Value Ref Range Status 02/12/2024 48.2 31.0 - 80.0 ng/mL Final Comment: Classification of 25 OH Vitamin D status: Deficiency/Insufficiency: < or = 30 ng/ml. Sufficiency/Optimal Levels: 31-80 ng/mL Toxicity: > 100 ng/mL. Test performed by chemiluminescent immunoassay. TSH (mIU/L) Date Value 02/12/2024 2.170 Hemoglobin A1C (%) Date Value 02/12/2024 5.3 Insulin Date Value Ref Range Status 02/12/2024 10.7 3.0 - 25.0 mU/L Final Anti-Obesity Medications >Phentermine: No uncontrolled HTN, No CVD Hx or hx of seizure disorder. No MAOI inhibitor use. No drug abuse hx. Crcl > 15. >Topiramate/zonisamide: No seizure, kidney stone or glaucoma hx. Has hx of migraines, and hx of poor sleep. Is of Child bearing age - Depo. >Qsymia: see above >Contrave: No uncontrolled HTN or hx of seizure disorder. No MAOI inhibitor use. No opiate use. >Saxenda/Wegovy/Ozempic: Cost. Ins coverage? >Metformin: eGFR > 30. No contraindications or medication interactions. Assessment/Plan: Melanie Levy is a 44 year old yo with Class II obesity who presented today for follow up for supervised weight loss to treat and prevent related co-morbidities. 1. Prediabetes - ICD9: 790.29, ICD10: R73.03 (primary diagnosis) - METFORMIN ER 500 MG TABLET,EXTENDED RELEASE 24 HR - 2 gm daily - Whole food balanced protein low-carb nutrition 2. Intractable migraine without aura and without status migrainosus - ICD9: 346.11, ICD10: G43.019 - TOPIRAMATE 50 MG TABLET 3. Class 2 obesity with body mass index (BMI) of 38.0 to 38.9 in adult, unspecified obesity type, unspecified whether serious comorbidity present - ICD9: 278.00, V85.38, ICD10: E66.9, Z68.38 Weight decreased - She did not qualify for long-term phentermine due to only losing 4% TBW but felt that it decreased her hunger and would like to try it again when able which is February,. - METFORMIN ER 500 MG TABLET,EXTENDED RELEASE 24 HR - TOPIRAMATE 50 MG TABLET twice daily Since increasing metformin and topiramate: More headaches - 4 a week. All foods have a weird taste. Feels sick for a little while after eating at all meals. Encouraged to take 1 gm metformin twice a day instead of 2 gm once daily. - Continue -Whole food balanced protein low-carb nutrition. Reviewed and given specific suggestions and updated food lists. -- Encouraged the patient to improve her physical activity. . An overall goal of 150-200 minutes per week of exercise has been effective in weight loss and maintenance. - An overall goal of 150-200 minutes per week of exercise has been effective in weight loss and maintenance. Prescription instructions reviewed with patient as applicable. Potential red flag symptoms discussed with the patient. Reviewed appropriate action plan to take if red flag symptoms occur. Patient agreeable to treatment plan. Follow-up in 3 months Sara Bergeron CNP Advanced Education from the [employer] I spent a total of 38 minutes on the date of the service which included preparing to see the patient, [id number] patient care, completing clinical documentation, obtaining and/or reviewing separately obtained history, performing a medically appropriate examination, and counseling and educating the patient/family/caregiver. documented in this encounter [facility] 11-15-2024 Note HNO ID: [id number] Author: SARA BERGERON APRN.CNP Service: ? Author Type: Nurse Practitioner Type: Progress Notes Filed: 11/15/2024 21:58 Note Text: Some documentation from previous visit of 09/27/2024 was copied and pasted, documentation has been reviewed and edited as necessary for today's visit. Patient Summary: Melanie is a 44 year old Female who presents for follow-up evaluation of obesity/weight management to treat and prevent related co-morbidities. In our previous visits we have discussed lifestyle intervention including a nutrition recommendations and physical activity optimization. Her last office visit was 6 weeks ago. Assessment/plan from last visit: - Topiramate 50 mg twice a day and - Metformin ER 500 mg -2 gm daily at one meal - 37.5 mg tab <5% BWL -- initially noticed increased thoughts of food, unsure about hunger for weeks after discontinuing. Interval History PT specifies the following items as new or significant updates since the last appointment: More headaches - 4 a week. All foods have a weird taste. Feels sick for a little while after eating at all meals. Did not qualify for long-term phentermine due to losing 4% TBW but felt that it decreased her hunger and would like to try it again when able which is February,. Weight loss since last vist: 2 lbs Date: Weight: BMI: Medications: 11/15/2024 228 lb 37.94 09/27/2024 230 lb 38.27 metformin dose increase, topiramate 50 mg 08/23/2024 220 lb 36.61 topiramate 25 mg DC <5% 05/23/2024 229 lb 39.31 phentermine 37.5 04/03/2024 229 lb 39.31 metformin ER 1 gm 02/15/2024 231 lb 39.44 metformin ER 500 mg 01/16/2024 228 lb 38.93 WC: 42 in 5% weight loss = 217 lbs, 10% weight loss = 206 lbs Anti-obesity medications: metformin Benefit:less hunger, a little increased fullness Adverse effects: none Topiramate Benefit: none noted AE: decarbonation of pop Weight promoting medications: none Previous Diet (initial appointment): Low carb during the work week. WE - up late morning. Lunch first meal but same. Awake - 0515 0600 Diet Coke B - 8-9 am meat and cheese snacks or jerky or occasionally PB crackers S - none L - 1200 meat and cheese with raw veg or salad with meat/Ranch dressing S - no D - 6-8 pm Salad with meat or grilled chicken and broccoli or pizza rolls or chicken nuggets if nothing prepared or easy to prepare Eats out on WE - [place], pizza, [place] S - occasional 8-10 pm chips/dip or popcorn Fluids - Diet Coke, occasional water. Alcohol one WE night - whiskey or coconut rum or cider beer Bedtime - Quality of diet: 24hr recall suggests somewhat healthy diet. Characterization of diet:Structured, excessive cravings, and evening snacking. 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:lack of satiety, mindlessness , and boredom Eating Disorder no Cravings: chips and dip Dietary changes: [id number] B - 30-9 am 2 eggs and sometimes a sausage anselmo or Pop Trey egg cup 22 g protein WE - eggs and meat OR SKIP S - sometimes nuts or meat and cheese or cottage cheese or [place] Pro or Pro drinkable L - 12-1 pm meat cheese, raw veg or salad with protein/eggs with Ranch/egg salad or WE left overs protein with vegetables, usually raw or steamed, sometimes small amount rice or potato S - none D - [id number] fresh protein with salad or low-carb veg/sometimes baked potato/small amount pasta/rice Eating out - [place] grilled chicken/shrimp with lettuce, sour cream, chips and salsa or burger or protein with side salad with Ranch and sometimes 1/2 baked potato with skin or salad and wings S - nuts or pepperoni or meat/cheese snacks or dill pickle Fluids - water. Alcohol 0-1 WE night - whiskey or coconut rum Current Barriers: lack of motivation and reduced physical activity AVERSION to protein shakes Exercise: stable active at home and work - bowling every 2 weeks Exercise: Has gym at home - but has not been home much Regular exercise: no Strength/resistance exercise:yes Barriers to regular exercise? no Work-related activity:Sedentary. Gym Membership: no Activity Tracker: yes Stress: increased work Sleep: stable Duration: 7 hours FISH NO ; CPAP NO Estimated Creatinine Clearance: 94.6 mL/min (based on SCr of 0.9 mg/dL). PAST MEDICAL HISTORY Diagnosis Date Migraine without aura, without mention of intractable migraine without mention of status migrainosus 07/22/2005 Sebaceous cyst of breast Current Outpatient Medications Medication Sig Dispense Refill metFORMIN ER (GLUCOPHAGE XR) 500 mg 24 hr tablet Take 2 tablets by mouth two times a day with meals. 360 tablet 3 topiramate (TOPAMAX) 50 mg tablet Take 1 tablet by mouth two times a day. 180 tablet 1 psyllium seed, with sugar, (FIBER ORAL) Take by mouth. levonorgestrel (MIRENA) 21 mcg/24 hr (8 yrs) 52 mg IUD 1 Each by INTRAUTERINE route as directed. 1 Each 0 No current facility-administered medications for t (more content not included)... [facility] 09-27-2024 Instructions Sara Bergeron APRN.[facility] - 09/27/2024 3:30 PM EST I use this combination frequently. Lactic acidosis with metformin is very rare and is typically seen only in patients with severe kidney disease. Metformin and Topiramate used together can potentially increase concentrations of both by up to 15% and you are on low doses of both. You would have to be careful with CT scans and IV contrast, hold metformin for 2 days. We can do blood work as we go to monitor kidney function and your electrolytes every 3-6 months and with any dose increases. Persistent acidosis is a more likely concern and can result in bone thinning and kidney stones. Make sure you get adequate water intake and drink lemon water to avoid this. Tyson Protein Bar 28 gm protein 12 gm carbs 150 marian IQ protein bars - Whole food balanced protein, controlled carbohydrate nutrition plan - 30 g of protein 3 times a day and up to 30 g of carbs at lunch and dinner only. Breakfast - 30 gm protein with limit of 2 gm carbohydrates. Options include: Premier Protein or generic 30 gm protein 1 gm sugar or 5 eggs or 2-3 eggs and some unbreaded meat and/or cheese. No fruit, vegetables, bread, grain, yogurt, Smoothies, etc. Lunch and dinner - 30 gm protein is the goal with less than 30 gm carbohydrates Snacks - all protein or more protein than carbs Protein - no carbs Egg 1 large - 6g Egg white 1 large 3.6g 3 oz is approximately the size of a deck of cards and equals 21 g protein so 4 oz is 28 gm protein Beef, Chicken, [place], Pork, [place] 1 oz 7g Fish, Tuna Fish 1 oz 7g (Starkist tuna packet 2.6 oz 17 gm protein) Seafood (Crabmeat, Shrimp, Lobster) 1 oz 6g Protein shakes (read labels) Premier Protein or generic [employer] Equate, [employer] High Performance- 30g protein & 1g carb - meal replacement Premier Protein powder or generic- 30 gm protein, 1g carb Premier Protein plant protein powder - 25 gm protein, 0 sugar/2 carb Vanilla and chocolate (not a meal replacement) Fairlife 30 gram protein - 30g protein & 3g carb BOOST Glucose Control Max 30g Protein Nutritional Drink - 30g protein & 1 carb - meal replacement Slimfast High Protein - 20g protein & 1g carb Ensure Max Protein Nutrition Shake 30g protein & 2 carb Protein AND carbs Beef/[place] Jerky 1 oz dried 10-15g protein - check carb count, can be high if sugar added Slim Herb - 6 gm protein and 4 net carb Great Value original turkey sausage sticks - 7 gm protein and 2 gm carb Brandan (at [employer]) Original smoked sausage sticks - 8 gm protein and 0 carb Imitation Crab Meat 1 oz - 2g protein & 4g carb Milk, skim 2% or 1% 8 oz - 8g protein & 12g carb Fairlife 2% milk 8 oz -13 g protein & 6g carb Norwegian yogurt Full Fat Norwegian Yogurt 1 cup - 20.4g protein & 9.1g carb 2% Norwegian Yogurt 1 cup - 22.7g protein & 9.1g carb 0% (fat-free) Norwegian Yogurt - 1 cup 24g protein & 9.3g carb Aldi Protein Norwegian yogurt single svg - 15g protein & 7g carb Chobani Zero Sugar single svg: - 12g protein & 5g carb Dannon Norwegian Light + Fit 1 single svg - 12g protein & 9g carb Oikos Pro single svg - 20g protein & 8g carb Oikos Triple Zero Norwegian Nonfat Yogurt 1 single svg - 15g protein & 7g carb :ratio, KETO Friendly Dairy Snack 1 single svg - 15g protein & 2g carb :ratio Protein 1 single svg - 25g protein & 8g carb Two Good Lowfat Norwegian Yogurt, [place], Lower Sugar - 12g protein & 2g carb Yoplait Protein 1 single svg 15gm protein & 5gm carb Dairy Free - [place] unsweetened Norwegian almond/soy 15 gm protein & 3 gm carb Dairy Free - True Goodness by [employer] coconut-based yogurt alternative 1 gm protein 1 gm net carb 180 marian Cheese each oz Brie 5.9g protein & 0.1g carb Cheddar 7g protein & 0.4g carb Tai 6.7g protein & 0.7g carb Cream Cheese 1.7g protein & 1.2g carb Feta 4g protein & 1.2g carb Mozzarella 6.3g protein & 0.6g carb Parmesan 10g protein & 0.9g carb Estonian 7.6g protein & 1.5g carb Cottage Cheese 1/2 c [place] 2% 13g protein 7g carb [place] 2% 13g protein 5 g carb Good Culture 2% 14g protein 3g carb Tran s Low Fat 12g protein & 4g carb Legumes Lentils cup 9g protein & 20g carb [place]ue beans cup 7g protein & 20g carb Kidney, Black, [place], Cannellini beans cup 8g protein & 20g carb Soybeans 1/2 c 14g complete protein & 8.5g carb [place] milk, unsweetened 8 oz 1g protein & 2g carb Soy milk 8 oz 3.5g protein & 1.6g carb Tofu 1/2 cup 10g protein & 2.3g carb Peanut butter, natural 2 Tbsp 7-8g protein & 4g net carbs, 190 calories PB2 powder 2 Tbsp 6g protein & 5g carb Nuts and Seeds per oz Almonds - 5.9g protein & 6.1g carb [place] Nuts - 4.0g protein & 3.4g carb Cashews - 5.1g protein & 9.2g carb Hazelnuts - 4.2g protein & 4.7g carb Hemp seeds/hearts 3 T/30 gms - 9.5 gm complete protein and 2.5 gm carb Peanuts - 7g protein & 4.6g carb Pecans - 2.6g protein & 3.9g carb Pistachios - 5.8g protein & 7.8g carb Pumpkin Seeds - 6.9g protein & 5g carb [place] Seeds - 5.8g protein & 5.6g carb Walnuts - 4.3g protein & 3.8g carb Edamame Beans (soybean) snack 1 pack 11 gm complete protein 2 carb 5 (FIVE) gram carb vegetable options 1 cup raw OR cup cooked: Asparagus Trivedi sprouts Beets Broccoli Brussel sprouts Cabbage Carrots Cauliflower Celery [place] Eggplant Green beans Lettuce Peppers Snap peas Spaghetti squash Spinach Tomato Turnips Zucchini 15 gram carb vegetable options cup cooked corn or hominy corn on the cob, large (5 oz) cup cooked green peas 4.3 gm complete protein cup cooked donahue beans 1 small potato or sweet potato cup cooked potato, plain cup cooked sweet potato, plain 1 cup winter squash (pumpkin, acorn, butternut) 1 cup marinara or pasta sauce - check label cup tomato juice cup tomato puree Beans, Seeds, Nuts cup cooked beans (kidney, diamond, red, green, etc.) cup cooked lentils cup baked beans 4 tablespoons nut butter <15 gram carb fruit options Berries have the lowest sugar content 1/2 medium apple - 12.5 carbs 1/2 medium avocado - 6.5 gm carbs 1/2 medium banana - 15 carbs 1/2 cup blueberries - 11 carbs - may actually help you lose weight 1/2 cup fresh cherries -11 carbs 1 medium Tasha -9 carbs 1/2 cup fresh cranberries - 6.5 carbs 1/2 c grapes - 15 carbs 1/2 medium grapefruit - 10.5 carbs 1/2 cup diced honeydew melon - 8 carbs 1 medium kiwi without skin - 11 carbs 1/2 cup sliced julia -14 carbs 1 medium nectarine - 15 carbs 1 medium orange -15.5 carbs 1 medium peach -14.5 carbs 1/2 cup fresh pineapple -11 carbs 1 medium plum -7.5 carbs 1 prune - 6 carbs 1/4 c raisins - 31.25 carbs 1/2 cup raspberries -7.5 carbs 1/2 c strawberries - 12.7 carbs 1 medium tangerine -12 carbs 1/2 cup diced watermelon - 6 carbs Grains Brown rice 1/2 c 5.5g protein 24 carb White long-grain rice 1/2 c 2g protein 22.5 carb Quinoa 1/2 c 4 gm complete protein 25 carb Oatmeal, old fashioned 1/2 c 5g protein 27g carb High Protein Snack Ideas 1. Jerky 2. [place] mix without dried fruit 3. [place] roll-ups 4. Norwegian yogurt 5. Veggies and yogurt dip 6. Tuna 7. Hard-boiled eggs 8. Peanut butter with celery 9. Cheese slices/ Cheese Stick 10. Handful of almonds, peanuts or walnuts 11. Cottage Cheese 12. Beef sticks 13. Protein bars 14. Canned Dinosaur 15. Pumpkin seeds 16. Nut butter 17. Protein shakes 18. Avocado and chicken salad 19. Egg muffins 20. Leftover protein or lunch meat 21. 1/2 c blended cottage cheese or Norwegian yogurt with dry ranch/Mrs. Dash/herb seasoning mix to make protein dip 22. 1/2 c blended cottage cheese with 1 Tbsp sugar-free dry cheesecake pudding mix 12g protein 10 carb 23. Pudding - 1 30 gm protein shake with 1/2 pkg sugar-free pudding 4 svgs - 7.8 gm protein, 5 carb each svg 24. SF Sunkist or Root Beer with 1-2 Tablespoons heavy whipping cream 25. Mini frozen dessert bites - layer protein yogurt, skinny syrup and crushed nuts and freeze documented in this encounter [facility] 09-27-2024 History of Present illness Narrative Images from the original note were not included. Some documentation from previous visit of 05/23/2024 was copied and pasted, documentation has been reviewed and edited as necessary for today's visit. Patient Summary: Melanie is a 44 year old Female who presents for follow-up evaluation of obesity/weight management to treat and prevent related co-morbidities. In our previous visits we have discussed lifestyle intervention including a nutrition recommendations and physical activity optimization. Her last office visit was 4 months ago. Assessment/plan from last visit: - Topiramate 25 mg bid - Metformin ER 500 mg - 1 gm with dinner - 37.5 mg tab <5% BWL Interval History PT specifies the following items as new or significant updates since the last appointment: 10 lbs weight gain due to not enough protein and snacking on WE Did not qualify for long-term phentermine due to losing 4% TBW but felt that it decreased her hunger and would like to try it again when able which is February,. Weight loss since last vist: +10 lb Date: Weight: BMI: Medications: 09/27/2024 230 lb 38.27 metformin dose increase, topiramate 50 mg 08/23/2024 220 lb 36.61 topiramate 25 mg DC <5% 05/23/2024 229 lb 39.31 phentermine 37.5 04/03/2024 229 lb 39.31 metformin ER 1 gm 02/15/2024 231 lb 39.44 metformin ER 500 mg 01/16/2024 228 lb 38.93 WC: 42 in 5% weight loss = 217 lbs, 10% weight loss = 206 lbs Anti-obesity medications: metformin Benefit:less hunger, a little increased fullness Adverse effects: none Topiramate Benefit: none noted AE: decarbonation of pop Weight promoting medications: none Previous Diet (initial appointment): Low carb during the work week. WE - up late morning. Lunch first meal but same. Awake - 0515 0600 Diet Coke B - 8-9 am meat and cheese snacks or jerky or occasionally PB crackers S - none L - 1200 meat and cheese with raw veg or salad with meat/Ranch dressing S - no D - 6-8 pm Salad with meat or grilled chicken and broccoli or pizza rolls or chicken nuggets if nothing prepared or easy to prepare Eats out on WE - Nauruan, pizza, Citizen [place] S - occasional 8-10 pm chips/dip or popcorn Fluids - Diet Coke, occasional water. Alcohol one WE night - whiskey or coconut rum or cider beer Bedtime - Quality of diet: 24hr recall suggests somewhat healthy diet. Characterization of diet:Structured, excessive cravings, and evening snacking. 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:lack of satiety, mindlessness , and boredom Eating Disorder no Cravings: chips and dip Dietary changes: 114638 B - 9 am 30 gm protein shake WE - eggs and meat S - occasionally cheese and veg L - 12-1 pm SKIP or 30 gm protein shake or meat cheese, raw veg or salad with protein with Ranch or WE left overs protein with vegetables, usually raw or steamed, sometimes small amount rice or potato S - none D - [id number] fresh protein with salad or low-carb veg/sometimes baked potato/small amount pasta/rice Eating out - N[place] grilled chicken/shrimp with lettuce, sour cream, chips and salsa or burger with 1/2 bun or protein with side salad with Ranch and sometimes 1/2 baked potato with skin or salad and wings - recent increase in carbs with dinner S - none WE - chips/salsa/dip Fluids - water. Alcohol 0-1 WE night - whiskey or coconut rum Current Barriers: stress eating, food cravings, and irregular meal patterns Exercise: stable active at home and work - bowling every 2 weeks Exercise: Has gym at home - but has not been home much Regular exercise: no Strength/resistance exercise:yes Barriers to regular exercise? no Work-related activity:Sedentary. 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 PAST MEDICAL HISTORY Diagnosis Date Migraine without aura, without mention of intractable migraine without mention of status migrainosus 07/22/2005 Sebaceous cyst of breast Current Outpatient Medications Medication Sig Dispense Refill topiramate (TOPAMAX) 25 mg tablet Take 1 tablet by mouth two times a day. 60 tablet 1 psyllium seed, with sugar, (FIBER ORAL) Take by mouth. levonorgestrel (MIRENA) 21 mcg/24 hr (8 yrs) 52 mg IUD 1 Each by INTRAUTERINE route as directed. 1 Each 0 metFORMIN ER (GLUCOPHAGE XR) 500 mg 24 hr tablet Take 2 tablets by mouth daily with dinner. 180 tablet 1 No current facility-administered medications for this visit. 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 No distress. Results: recent labs reviewed with the patient. Latest Ref Rng & Units 08/13/2024 CMP Sodium 136 - 144 mmol/L 139 Potassium 3.7 - 5.1 mmol/L 4.0 Chloride 98 - 107 mmol/L 105 CO2 22 - 30 mmol/L 25 Glucose 74 - 99 mg/dL 103 BUN 7 - 21 mg/dL 14 Creatinine 0.58 - 0.96 mg/dL 0.90 EGFR >=60 mL/min/1.73m 81 Calcium 8.5 - 10.2 mg/dL 9.7 Cholesterol, Total (mg/dL) Date Value 02/12/2024 151 HDL Cholesterol (mg/dL) Date Value 02/12/2024 51 LDL Cholesterol (mg/dL) Date Value 02/12/2024 88 Triglyceride (mg/dL) Date Value 02/12/2024 60 Latest Ref Rng & Units 02/12/2024 CBC WBC 3.70 - 11.00 k/uL 7.55 RBC 3.90 - 5.20 m/uL 4.28 Hemoglobin 11.5 - 15.5 g/dL 13.3 Hematocrit 36.0 - 46.0 % 38.4 MCV 80.0 - 100.0 fL 89.7 MCH 26.0 - 34.0 pg 31.1 MCHC 30.5 - 36.0 g/dL 34.6 RDW-CV 11.5 - 15.0 % 12.5 Platelet Count 150 - 400 k/uL 239 MPV 9.0 - 12.7 fL 10.3 Vitamin D 25 Hydroxy Date Value Ref Range Status 02/12/2024 48.2 31.0 - 80.0 ng/mL Final Comment: Classification of 25 OH Vitamin D status: Deficiency/Insufficiency: < or = 30 ng/ml. Sufficiency/Optimal Levels: 31-80 ng/mL Toxicity: > 100 ng/mL. Test performed by chemiluminescent immunoassay. TSH (mIU/L) Date Value 02/12/2024 2.170 Hemoglobin A1C (%) Date Value 02/12/2024 5.3 Insulin Date Value Ref Range Status 02/12/2024 10.7 3.0 - 25.0 mU/L Final Anti-Obesity Medications >Phentermine: No uncontrolled HTN, No CVD Hx or hx of seizure disorder. No MAOI inhibitor use. No drug abuse hx. Crcl > 15. >Topiramate/zonisamide: No seizure, kidney stone or glaucoma hx. Has hx of migraines, and hx of poor sleep. Is of Child bearing age - Depo. >Qsymia: see above >Contrave: No uncontrolled HTN or hx of seizure disorder. No MAOI inhibitor use. No opiate use. >Saxenda/Wegovy/Ozempic: Cost. Ins coverage? >Metformin: eGFR > 30. No contraindications or medication interactions. Assessment/Plan: Melanie Levy is a 44 year old yo with Class II obesity who presented today for follow up for supervised weight loss to treat and prevent related co-morbidities. 1. Prediabetes - ICD9: 790.29, ICD10: R73.03 (primary diagnosis) - METFORMIN ER 500 MG TABLET,EXTENDED RELEASE 24 HR - 2 gm daily - Whole food balanced protein low-carb nutrition 2. Intractable migraine without aura and without status migrainosus - ICD9: 346.11, ICD10: G43.019 - TOPIRAMATE 50 MG TABLET 3. Class 2 obesity with body mass index (BMI) of 38.0 to 38.9 in adult, unspecified obesity type, unspecified whether serious comorbidity present - ICD9: 278.00, V85.38, ICD10: E66.9, Z68.38 Weight increasing - METFORMIN ER 500 MG TABLET,EXTENDED RELEASE 24 HR -increase to 2 gm daily - TOPIRAMATE 50 MG TABLET twice daily - She did not qualify for long-term phentermine due to only losing 4% TBW but felt that it decreased her hunger and would like to try it again when able which is February,. - Continue -Whole food balanced protein low-carb nutrition. Reviewed and given specific suggestions and updated food lists. -- Encouraged the patient to improve her physical activity. . An overall goal of 150-200 minutes per week of exercise has been effective in weight loss and maintenance. - An overall goal of 150-200 minutes per week of exercise has been effective in weight loss and maintenance. Prescription instructions reviewed with patient as applicable. Potential red flag symptoms discussed with the patient. Reviewed appropriate action plan to take if red flag symptoms occur. Patient agreeable to treatment plan. Follow-up in 6 weeks Sara Bergeron CNP Advanced Education from the [employer] Medical Decision Making: Problems: Moderate: 1+ chronic illnesses with change Risk: Moderate: Drug management and Moderate risk from testing/treatment Medical Decision Making Level: 4 - Moderate documented in this encounter [facility] 09-27-2024 Note HNO ID: [id number] Author: SARA BERGERON APRN.CNP Service: ? Author Type: Nurse Practitioner Type: Progress Notes Filed: 09/28/2024 14:40 Note Text: Some documentation from previous visit of 05/23/2024 was copied and pasted, documentation has been reviewed and edited as necessary for today's visit. Patient Summary: Melanie is a 44 year old Female who presents for follow-up evaluation of obesity/weight management to treat and prevent related co-morbidities. In our previous visits we have discussed lifestyle intervention including a nutrition recommendations and physical activity optimization. Her last office visit was 4 months ago. Assessment/plan from last visit: - Topiramate 25 mg bid - Metformin ER 500 mg - 1 gm with dinner - 37.5 mg tab <5% BWL Interval History PT specifies the following items as new or significant updates since the last appointment: 10 lbs weight gain due to not enough protein and snacking on WE Did not qualify for long-term phentermine due to losing 4% TBW but felt that it decreased her hunger and would like to try it again when able which is February,. Weight loss since last vist: +10 lb Date: Weight: BMI: Medications: 09/27/2024 230 lb 38.27 metformin dose increase, topiramate 50 mg 08/23/2024 220 lb 36.61 topiramate 25 mg DC <5% 05/23/2024 229 lb 39.31 phentermine 37.5 04/03/2024 229 lb 39.31 metformin ER 1 gm 02/15/2024 231 lb 39.44 metformin ER 500 mg 01/16/2024 228 lb 38.93 WC: 42 in 5% weight loss = 217 lbs, 10% weight loss = 206 lbs Anti-obesity medications: metformin Benefit:less hunger, a little increased fullness Adverse effects: none Topiramate Benefit: none noted AE: decarbonation of pop Weight promoting medications: none Previous Diet (initial appointment): Low carb during the work week. WE - up late morning. Lunch first meal but same. Awake - 0515 0600 Diet Coke B - 8-9 am meat and cheese snacks or jerky or occasionally PB crackers S - none L - 1200 meat and cheese with raw veg or salad with meat/Ranch dressing S - no D - 6-8 pm Salad with meat or grilled chicken and broccoli or pizza rolls or chicken nuggets if nothing prepared or easy to prepare Eats out on WE - [place], pizza, Citizen [place] S - occasional 8-10 pm chips/dip or popcorn Fluids - Diet Coke, occasional water. Alcohol one WE night - whiskey or coconut rum or cider beer Bedtime - Quality of diet: 24hr recall suggests somewhat healthy diet. Characterization of diet:Structured, excessive cravings, and evening snacking. 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:lack of satiety, mindlessness , and boredom Eating Disorder no Cravings: chips and dip Dietary changes: 501395 B - 9 am 30 gm protein shake WE - eggs and meat S - occasionally cheese and veg L - 12-1 pm SKIP or 30 gm protein shake or meat cheese, raw veg or salad with protein with Ranch or WE left overs protein with vegetables, usually raw or steamed, sometimes small amount rice or potato S - none D - [id number] fresh protein with salad or low-carb veg/sometimes baked potato/small amount pasta/rice Eating out - [place] grilled chicken/shrimp with lettuce, sour cream, chips and salsa or burger with 1/2 bun or protein with side salad with Ranch and sometimes 1/2 baked potato with skin or salad and wings - recent increase in carbs with dinner S - none WE - chips/salsa/dip Fluids - water. Alcohol 0-1 WE night - whiskey or coconut rum Current Barriers: stress eating, food cravings, and irregular meal patterns Exercise: stable active at home and work - bowling every 2 weeks Exercise: Has gym at home - but has not been home much Regular exercise: no Strength/resistance exercise:yes Barriers to regular exercise? no Work-related activity:Sedentary. 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 PAST MEDICAL HISTORY Diagnosis Date Migraine without aura, without mention of intractable migraine without mention of status migrainosus 07/22/2005 Sebaceous cyst of breast Current Outpatient Medications Medication Sig Dispense Refill topiramate (TOPAMAX) 25 mg tablet Take 1 tablet by mouth two times a day. 60 tablet 1 psyllium seed, with sugar, (FIBER ORAL) Take by mouth. levonorgestrel (MIRENA) 21 mcg/24 hr (8 yrs) 52 mg IUD 1 Each by INTRAUTERINE route as directed. 1 Each 0 metFORMIN ER (GLUCOPHAGE XR) 500 mg 24 hr tablet Take 2 tablets by mouth daily with dinner. 180 tablet 1 No current facility-administered medications for this visit. 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 Physical Exam Constitutional: She appears healthy. No distress. Results: re (more content not included)... [facility] 08-23-2024 Note HNO ID: [id number] Author: ALTA PATEL APRN.BEER MAKER Service: ? Author Type: Nurse Practitioner Type: Progress Notes Filed: 08/23/2024 15:52 Note Text: Some documentation from previous visit of 05/23/2024 was copied and pasted, documentation has been reviewed and edited as necessary for today's visit. Patient Summary: Melanie is a 44 year old female who presents for follow-up evaluation of her obesity/weight management to treat and prevent relatedco-morbidities. In our previous visits we have discussed lifestyle intervention including a nutrition recommendations and physical activity optimization. Her last office visit was 3 months ago. Assessment/plan from last visit: Assessment/Plan: Melanie Levy is a 43 year old yo with Class II obesity who presented today for follow up for supervised weight loss to treat and prevent related co-morbidities. 1. Prediabetes - ICD9: 790.29, ICD10: R73.03 (primary diagnosis) - METFORMIN ER 500 MG TABLET,EXTENDED RELEASE 24 HR - Whole food balanced protein low-carb nutrition - BASIC METABOLIC PANEL 2. Intractable migraine without aura and without status migrainosus - ICD9: 346.11, ICD10: G43.019 - currently rare occurrences 3. Class 2 obesity with body mass index (BMI) of 38.0 to 38.9 in adult, unspecified obesity type, unspecified whether serious comorbidity present - ICD9: 278.00, V85.38, ICD10: E66.9, Z68.38 Weight increasing - BASIC METABOLIC PANEL - METFORMIN ER 500 MG TABLET,EXTENDED RELEASE 24 HR - 1 gm at dinner - PHENTERMINE 37.5 MG TABLET Phentermine. Risk/benefits discussed at length including potential side effects of increased anxiety, insomnia, increased heart rate, and increased blood pressure. I have asked the patient to monitor blood pressure and avoid any stimulants (in the form of caffeinated beverages like coffee, tea, sports drinks) initially. Patient denies history of arrhythmias, coronary artery disease (atherosclerosis), heart failure, pulmonary hypertension, stroke, valvular heart disease (prolapse, regurgitation, stenosis). The patient is currently enrolled in a diet and exercise program The patient has no known history of contraindications The patient is free from drug or ETHO abuse The patient is not or and is aware not to become while using this medication OARS was reviewed. PDMP website checked and validated. All prescriptions have been APPROPRIATELY filled. No suspicious activity was identified. - Continue -Whole food balanced protein low-carb nutrition -- Encouraged the patient to improve her physical activity. . An overall goal of 150-200 minutes per week of exercise has been effective in weight loss and maintenance. - An overall goal of 150-200 minutes per week of exercise has been effective in weight loss and maintenance. Prescription instructions reviewed with patient as applicable. Potential red flag symptoms discussed with the patient. Reviewed appropriate action plan to take if red flag symptoms occur. Patient agreeable to treatment plan. Follow up 3 months R Gary due to provider FMLA - weight needs to be 217 lbs or less to continue phentermine. Interval History Phentermine has decrease appetite and hunger. Weight loss since last vist: 9 lb Date: Weight: BMI: Medications: 08/23/2024 220 lb 36.61 metformin ER 500 mg, phentermine 37.5 05/23/2024 229 lb 39.31 phentermine 37.5 04/03/2024 229 lb 39.31 metformin ER 1 gm 02/15/2024 231 lb 39.44 metformin ER 500 mg 01/16/2024 228 lb 38.93 WC: 42 in 5% weight loss = 217 lbs, 10% weight loss = 206 lbs Anti-obesity medications: Metformin and Phentermine Benefit:less hunger, increased fullness Adverse effects: the 1st month some trouble sleeping- but that is much improved PAST MEDICAL HISTORY Diagnosis Date Migraine without aura, without mention of intractable migraine without mention of status migrainosus 07/22/2005 Sebaceous cyst of breast Current Outpatient Medications Medication Sig Dispense Refill psyllium seed, with sugar, (FIBER ORAL) Take by mouth. levonorgestrel (MIRENA) 21 mcg/24 hr (8 yrs) 52 mg IUD 1 Each by INTRAUTERINE route as directed. 1 Each 0 metFORMIN ER (GLUCOPHAGE XR) 500 mg 24 hr tablet Take 2 tablets by mouth daily with dinner. 180 tablet 1 No current facility-administered medications for this visit. Previous Diet (initial appointment): Low carb during the work week. WE - up late morning. Lunch first meal but same. Awake - 0515 0600 Diet Coke B - 8-9 am meat and cheese snacks or jerky or occasionally PB crackers S - none L - 1200 meat and cheese with raw veg or salad with meat/Ranch dressing S - no D - 6-8 pm Salad with meat or grilled chicken and broccoli or pizza rolls or chicken nuggets if nothing prepared or easy to prepare Eats out on WE - [place], pizza, [place] S - occasional 8-10 pm chips/dip or popcorn Fluids - Diet Coke, occasional wa (more content not included)... [facility] 08-23-2024 History of Present illness Narrative Some documentation from previous visit of 05/23/2024 was copied and pasted, documentation has been reviewed and edited as necessary for today's visit. Patient Summary: Melanie is a 44 year old female who presents for follow-up evaluation of her obesity/weight management to treat and prevent relatedco-morbidities. In our previous visits we have discussed lifestyle intervention including a nutrition recommendations and physical activity optimization. Her last office visit was 3 months ago. Assessment/plan from last visit: Assessment/Plan: Melanie Levy is a 43 year old yo with Class II obesity who presented today for follow up for supervised weight loss to treat and prevent related co-morbidities. 1. Prediabetes - ICD9: 790.29, ICD10: R73.03 (primary diagnosis) - METFORMIN ER 500 MG TABLET,EXTENDED RELEASE 24 HR - Whole food balanced protein low-carb nutrition - BASIC METABOLIC PANEL 2. Intractable migraine without aura and without status migrainosus - ICD9: 346.11, ICD10: G43.019 - currently rare occurrences 3. Class 2 obesity with body mass index (BMI) of 38.0 to 38.9 in adult, unspecified obesity type, unspecified whether serious comorbidity present - ICD9: 278.00, V85.38, ICD10: E66.9, Z68.38 Weight increasing - BASIC METABOLIC PANEL - METFORMIN ER 500 MG TABLET,EXTENDED RELEASE 24 HR - 1 gm at dinner - PHENTERMINE 37.5 MG TABLET Phentermine. Risk/benefits discussed at length including potential side effects of increased anxiety, insomnia, increased heart rate, and increased blood pressure. I have asked the patient to monitor blood pressure and avoid any stimulants (in the form of caffeinated beverages like coffee, tea, sports drinks) initially. Patient denies history of arrhythmias, coronary artery disease (atherosclerosis), heart failure, pulmonary hypertension, stroke, valvular heart disease (prolapse, regurgitation, stenosis). The patient is currently enrolled in a diet and exercise program The patient has no known history of contraindications The patient is free from drug or ETHO abuse The patient is not or and is aware not to become while using this medication OARS was reviewed. PDMP website checked and validated. All prescriptions have been APPROPRIATELY filled. No suspicious activity was identified. - Continue -Whole food balanced protein low-carb nutrition -- Encouraged the patient to improve her physical activity. . An overall goal of 150-200 minutes per week of exercise has been effective in weight loss and maintenance. - An overall goal of 150-200 minutes per week of exercise has been effective in weight loss and maintenance. Prescription instructions reviewed with patient as applicable. Potential red flag symptoms discussed with the patient. Reviewed appropriate action plan to take if red flag symptoms occur. Patient agreeable to treatment plan. Follow up 3 months R Gary due to provider FMLA - weight needs to be 217 lbs or less to continue phentermine. Interval History Phentermine has decrease appetite and hunger. Weight loss since last vist: 9 lb Date: Weight: BMI: Medications: 08/23/2024 220 lb 36.61 metformin ER 500 mg, phentermine 37.5 05/23/2024 229 lb 39.31 phentermine 37.5 04/03/2024 229 lb 39.31 metformin ER 1 gm 02/15/2024 231 lb 39.44 metformin ER 500 mg 01/16/2024 228 lb 38.93 WC: 42 in 5% weight loss = 217 lbs, 10% weight loss = 206 lbs Anti-obesity medications: Metformin and Phentermine Benefit:less hunger, increased fullness Adverse effects: the 1st month some trouble sleeping- but that is much improved PAST MEDICAL HISTORY Diagnosis Date Migraine without aura, without mention of intractable migraine without mention of status migrainosus 07/22/2005 Sebaceous cyst of breast Current Outpatient Medications Medication Sig Dispense Refill psyllium seed, with sugar, (FIBER ORAL) Take by mouth. levonorgestrel (MIRENA) 21 mcg/24 hr (8 yrs) 52 mg IUD 1 Each by INTRAUTERINE route as directed. 1 Each 0 metFORMIN ER (GLUCOPHAGE XR) 500 mg 24 hr tablet Take 2 tablets by mouth daily with dinner. 180 tablet 1 No current facility-administered medications for this visit. Previous Diet (initial appointment): Low carb during the work week. WE - up late morning. Lunch first meal but same. Awake - 0515 0600 Diet Coke B - 8-9 am meat and cheese snacks or jerky or occasionally PB crackers S - none L - 1200 meat and cheese with raw veg or salad with meat/Ranch dressing S - no D - 6-8 pm Salad with meat or grilled chicken and broccoli or pizza rolls or chicken nuggets if nothing prepared or easy to prepare Eats out on WE - [place], pizza, Citizen Of [place] S - occasional 8-10 pm chips/dip or popcorn Fluids - Diet Coke, occasional water. Alcohol one WE night - whiskey or coconut rum or cider beer Bedtime - Quality of diet: 24hr recall suggests somewhat healthy diet. Characterization of diet:Structured, excessive cravings, and evening snacking. 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:lack of satiety, mindlessness , and boredom Eating Disorder no Cravings: chips and dip Dietary changes: [id number] B - 9 am 30 gm protein shake WE - SKIP S - occasionally almonds or cheese L - 12-1 pm 30 gm protein shake or meat cheese, raw veg with Ranch or WE left overs protein with vegetables, usually raw or steamed, sometimes small amount rice or potato S - none D - [id number] fresh protein with salad or low-carb veg/sometimes baked potato/small amount pasta Eating out - [place] grilled chicken/shrimp with lettuce, sour cream, chips and salsa or burger with 1/2 bun or protein with side salad with Ranch and sometimes 1/2 baked potato with skin S - none Fluids - Diet Coke, occasional water. Alcohol 0-1 WE night - whiskey or coconut rum or cider beer Diet still pretty consistent a little extra over the holidays BP 120/74 Pulse 76 Resp 16 Wt 99.8 kg (220 lb) SpO2 97% BMI 36.61 kg/m Assessment/Plan: Melanie Levy is a 43 year old yo with Class II obesity who presented today for follow up for supervised weight loss to treat and prevent related co-morbidities. 1. Prediabetes - ICD9: 790.29, ICD10: R73.03 (primary diagnosis) - METFORMIN ER 500 MG TABLET,EXTENDED RELEASE 24 HR - Whole food balanced protein low-carb nutrition - BASIC METABOLIC PANEL 2. Intractable migraine without aura and without status migrainosus - ICD9: 346.11, ICD10: G43.019 - currently rare occurrences 3. Class 2 obesity with body mass index (BMI) of 38.0 to 38.9 in adult, unspecified obesity type, unspecified whether serious comorbidity present - ICD9: 278.00, V85.38, ICD10: E66.9, Z68.38 Weight increasing - BASIC METABOLIC PANEL - METFORMIN ER 500 MG TABLET,EXTENDED RELEASE 24 HR - 1 gm at dinner - PHENTERMINE 37.5 MG TABLET DC due to 5% weight loss not met Topiramate 25 mg BID ordered, R/B and SE discussed - Continue -Whole food balanced protein low-carb nutrition -- Encouraged the patient to improve her physical activity. . An overall goal of 150-200 minutes per week of exercise has been effective in weight loss and maintenance. - An overall goal of 150-200 minutes per week of exercise has been effective in weight loss and maintenance. Prescription instructions reviewed with patient as applicable. Potential red flag symptoms discussed with the patient. Reviewed appropriate action plan to take if red flag symptoms occur. Patient agreeable to treatment plan. Follow up with AG next month Alta Patel APRN.CNP Medical Decision Making: Problems: Moderate: 2+ stable chronic illnesses Risk: Moderate: Drug management Medical Decision Making Level: 4 - Moderate documented in this encounter [facility] 07-08-2024 Nurse Note Pathology review by Dr Jacques, updated patient The breast was assessed and sutures were removed as ordered. Steri strips applied. Patient instructed on wound care and verbalized understanding. Lynnette Moore LPN July 08, 2024 4:32 PM [facility] 07-08-2024 Nurse Note Pathology review by Dr Jacques, updated patient The breast was assessed and sutures were removed as ordered. Steri strips applied. Patient instructed on wound care and verbalized understanding. Lynnette Moore LPN July 08, 2024 4:32 PM documented in this encounter [facility] 07-01-2024 Note HNO ID: [id number] Author: KRYSTINA JACQUES MD Service: ? Author Type: Physician Type: Progress Notes Filed: 07/03/2024 16:19 Note Text: Melanie presents for excision of infected sebaceous cyst of left breast area. PROCEDURE NOTE: Description of procedure: After informed consent was obtained, patient was brought to the procedure room. Appropriate time out protocol was followed. Patient was placed in the supine position. The site of the lesion was then cleansed with a sterile surgical skin preparation. Appropriate sterile surgical drapes were placed. The skin and subcutaneous tissues at the site were then infiltrated with local anesthetic. A skin incision was made at the site in an elliptical fashion to entirely incorporate the lesion and its pore opening with a 15 blade scalpel. The incision was carried down to the subcutaneous tissues. Dissection was done to separate the skin lesion from the surrounding subcutaneous tissues. The lesion was excised sharply down to the subcutaneous tissues. The lesion was 2 cm in size. The tissue was then removed and placed in formalin to be forwarded to pathology for analysis. Hemostasis was controlled by pressure. The skin edges were then reapproximated with interrupted 3-0 nylon suture and 3-0 vicryl (placed subdermally) in a simple fashion. Sterile dressing was applied. Patient tolerated procedure well. PLAN: Wound care instructions given by clinic staff. Patient to follow up for nursing visit for removal of sutures in one weeks. Office will call with results of pathology. Patient to return to clinic if any signs/symptoms of infection/etc. Patient acknowledges the above. [facility] 07-01-2024 History of Present illness Narrative Melanie presents for excision of infected sebaceous cyst of left breast area. PROCEDURE NOTE: Description of procedure: After informed consent was obtained, patient was brought to the procedure room. Appropriate time out protocol was followed. Patient was placed in the supine position. The site of the lesion was then cleansed with a sterile surgical skin preparation. Appropriate sterile surgical drapes were placed. The skin and subcutaneous tissues at the site were then infiltrated with local anesthetic. A skin incision was made at the site in an elliptical fashion to entirely incorporate the lesion and its pore opening with a 15 blade scalpel. The incision was carried down to the subcutaneous tissues. Dissection was done to separate the skin lesion from the surrounding subcutaneous tissues. The lesion was excised sharply down to the subcutaneous tissues. The lesion was 2 cm in size. The tissue was then removed and placed in formalin to be forwarded to pathology for analysis. Hemostasis was controlled by pressure. The skin edges were then reapproximated with interrupted 3-0 nylon suture and 3-0 vicryl (placed subdermally) in a simple fashion. Sterile dressing was applied. Patient tolerated procedure well. PLAN: Wound care instructions given by clinic staff. Patient to follow up for nursing visit for removal of sutures in one weeks. Office will call with results of pathology. Patient to return to clinic if any signs/symptoms of infection/etc. Patient acknowledges the above. UNIVERSAL PROTOCOL / SAFETY CHECKLIST Procedure to be Performed: Excision of skin cyst of left breast Sign In: A Moment of CARE was completed. Personnel directly involved with the procedure wore the appropriate PPE (Personal Protective Equipment). No special equipment needed. Patient/Surrogate Stated/Verified: PATIENT VERIFIED(optional for EMERGENT procedures): Patient name, Date of , Relevant allergies, and The intended procedure Time Out Communication: Intended patient and procedure match the source documents. Consent documented and matches the intended procedure. No relevant labs, photos, and/or imaging studies were applicable for review. Correct side/site marked and visible. Medications required for procedure verified. No fire risk assessment and interventions applicable. No implant(s) inserted. Sign Out: SIGN OUT (optional for EMERGENT procedures): All specimen containers correctly labeled. No instruments, equipment or retained foreign bodies applicable. Post-procedure follow-up management communicated and Plan of Care Visit completed when applicable. Daovnte Abarca RN documented in this encounter [facility] 07-01-2024 Instructions Davonte Abarca RN - 07/01/2024 3:17 PM EST The following instructions are important for you related to your office visit today with the [facility]. Instructions After SKIN EXCISION-SUTURES You can remove the dressing in five-seven days days. You should keep the wound dry. If the dressing becomes wet, with water, please change it. You may take acetaminophen or ibuprofen, as needed, for pain. If the dressing becomes soaked or had significant drainage, the dressing should be changed. If there is minor bleeding from this skin edge, you should hold pressure on the incision until the bleeding stops. If there is continued bleeding, you should contact our office immediately. If the wound shows signs of redness, inflammation, or purulent drainage, you should contact our office immediately. The wound should not be immersed in a pool, bathtub, or even hot tub. We prefer to check the incision and remove the stitches in our office when ready. Please make an appointment to return to our office in 7 days. Please do not remove the stitches yourself without approval from our office. If you note any additional difficulties, questions, or concerns, you should contact our office immediately @ [phone] and ask to be transferred to the General Surgery department. documented in this encounter [facility] 07-01-2024 Note HNO ID: [id number] Author: DAVONTE ABARCA RN Service: ? Author Type: Registered Nurse Type: Progress Notes Filed: 07/03/2024 16:19 Note Text: UNIVERSAL PROTOCOL / SAFETY CHECKLIST Procedure to be Performed: Excision of skin cyst of left breast Sign In: A Moment of CARE was completed. Personnel directly involved with the procedure wore the appropriate PPE (Personal Protective Equipment). No special equipment needed. Patient/Surrogate Stated/Verified: PATIENT VERIFIED(optional for EMERGENT procedures): Patient name, Date of , Relevant allergies, and The intended procedure Time Out Communication: Intended patient and procedure match the source documents. Consent documented and matches the intended procedure. No relevant labs, photos, and/or imaging studies were applicable for review. Correct side/site marked and visible. Medications required for procedure verified. No fire risk assessment and interventions applicable. No implant(s) inserted. Sign Out: SIGN OUT (optional for EMERGENT procedures): All specimen containers correctly labeled. No instruments, equipment or retained foreign bodies applicable. Post-procedure follow-up management communicated and Plan of Care Visit completed when applicable. Davonte Abarca RN [facility] 06-24-2024 Note HNO ID: [id number] Author: KRYSTINA JACQUES MD Service: ? Author Type: Physician Type: Progress Notes Filed: 06/25/2024 14:36 Note Text: Melanie presents for follow up of infected sebaceous cyst of left breast area. The area is no longer erythematous and the inflammation/induration has greatly decreased in size. Will schedule patient for office procedure. I have counseled patient as to risks of procedure, including but not limited to: infection, bleeding, scar tissue, injury to any blood vessels/nerves, cosmetic deformity, complications of anesthesia - she understands and agrees to proceed. [facility] 06-24-2024 History of Present illness Narrative Melanie presents for follow up of infected sebaceous cyst of left breast area. The area is no longer erythematous and the inflammation/induration has greatly decreased in size. Will schedule patient for office procedure. I have counseled patient as to risks of procedure, including but not limited to: infection, bleeding, scar tissue, injury to any blood vessels/nerves, cosmetic deformity, complications of anesthesia - she understands and agrees to proceed. documented in this encounter [facility] 06-17-2024 Note HNO ID: [id number] Author: KRYSTINA JACQUES MD Service: ? Author Type: Physician Type: Progress Notes Filed: 06/19/2024 15:40 Note Text: Melanie Levy 1980 CHIEF COMPLAINT: Follow Up HPI: The patient is a 43 year old female here for evaluation of infected sebaceous cyst of left breast. The patient states that the area is much less painful. It has decreased in size at least by half. It also appears less erythematous. Patient reports no drainage. PAST MEDICAL HISTORY Diagnosis Date Migraine without aura, without mention of intractable migraine without mention of status migrainosus 07/22/2005 Prediabetes 2020 PAST SURGICAL HISTORY Procedure Laterality Date LAPAROSCOPY SURG CHOLECYSTECTOMY 08/21/1998 Cholecystectomy, lap MIRENA IUD 04/24/2024 Insertion Current Outpatient Medications Medication Sig psyllium seed, with sugar, (FIBER ORAL) Take by mouth. amoxicillin-clavulanate potassium (AUGMENTIN) 875-125 mg per tablet Take 1 tablet by mouth two times a day for 10 days. Phentermine HCl 37.5 mg tablet Take 1 tablet by mouth daily before breakfast for 90 days. levonorgestrel (MIRENA) 21 mcg/24 hr (8 yrs) 52 mg IUD 1 Each by INTRAUTERINE route as directed. metFORMIN ER (GLUCOPHAGE XR) 500 mg 24 hr tablet Take 2 tablets by mouth daily with dinner. No current facility-administered medications for this visit. ALLERGIES: Latex REVIEW OF SYSTEMS: Denies fevers PHYSICAL EXAMINATION: General: The patient is 43 year old female, well nourished, well hydrated in no acute distress. The patient is oriented to time, place, and person. VITALS: Blood pressure 112/76, pulse 70, resp. rate 16, height 165.1 cm (5' 5), weight 103.4 kg (228 lb), SpO2 99%. Body mass index is 37.94 kg/m?. Left breast - skin lesion with no erythema and no drainage - much decreased in size Assessment IMPRESSION: infected sebaceous cyst - resolving infection PLAN: I have discussed the above with the patient. Will assess lesion again in a week. If infected has abated, will schedule for office surgery for excision of sebaceous cyst. No further antibiotics warranted. Patient acknowledges the above. I have answered all questions to the patient?s satisfaction and the patient has no further questions. I have confirmed and edited as necessary, the PFSH and ROS obtained by others. . Diagnoses: (L72.3, L08.9) Infected sebaceous cyst (primary encounter diagnosis) I spent a total of 15 minutes on the date of the service which included preparing to see the patient with review of any pertinent laboratory studies/radiological imaging/medical records, [id number] patient care, obtaining oral medical history from the patient in this encounter, performing a medically appropriate examination, counseling and educating the patient/family/caregiver, and completing appropriate medical documentation. Krystina Jacques MD [facility] 06-17-2024 History of Present illness Narrative Melanie Levy 1980 CHIEF COMPLAINT: Follow Up HPI: The patient is a 43 year old female here for evaluation of infected sebaceous cyst of left breast. The patient states that the area is much less painful. It has decreased in size at least by half. It also appears less erythematous. Patient reports no drainage. PAST MEDICAL HISTORY Diagnosis Date Migraine without aura, without mention of intractable migraine without mention of status migrainosus 07/22/2005 Prediabetes 2020 PAST SURGICAL HISTORY Procedure Laterality Date LAPAROSCOPY SURG CHOLECYSTECTOMY 08/21/1998 Cholecystectomy, lap MIRENA IUD 04/24/2024 Insertion Current Outpatient Medications Medication Sig psyllium seed, with sugar, (FIBER ORAL) Take by mouth. amoxicillin-clavulanate potassium (AUGMENTIN) 875-125 mg per tablet Take 1 tablet by mouth two times a day for 10 days. Phentermine HCl 37.5 mg tablet Take 1 tablet by mouth daily before breakfast for 90 days. levonorgestrel (MIRENA) 21 mcg/24 hr (8 yrs) 52 mg IUD 1 Each by INTRAUTERINE route as directed. metFORMIN ER (GLUCOPHAGE XR) 500 mg 24 hr tablet Take 2 tablets by mouth daily with dinner. No current facility-administered medications for this visit. ALLERGIES: Latex REVIEW OF SYSTEMS: Denies fevers PHYSICAL EXAMINATION: General: The patient is 43 year old female, well nourished, well hydrated in no acute distress. The patient is oriented to time, place, and person. VITALS: Blood pressure 112/76, pulse 70, resp. rate 16, height 165.1 cm (5' 5), weight 103.4 kg (228 lb), SpO2 99%. Body mass index is 37.94 kg/m . Left breast - skin lesion with no erythema and no drainage - much decreased in size Assessment IMPRESSION: infected sebaceous cyst - resolving infection PLAN: I have discussed the above with the patient. Will assess lesion again in a week. If infected has abated, will schedule for office surgery for excision of sebaceous cyst. No further antibiotics warranted. Patient acknowledges the above. I have answered all questions to the patient s satisfaction and the patient has no further questions. I have confirmed and edited as necessary, the PFSH and ROS obtained by others. . Diagnoses: (L72.3, L08.9) Infected sebaceous cyst (primary encounter diagnosis) I spent a total of 15 minutes on the date of the service which included preparing to see the patient with review of any pertinent laboratory studies/radiological imaging/medical records, [id number] patient care, obtaining oral medical history from the patient in this encounter, performing a medically appropriate examination, counseling and educating the patient/family/caregiver, and completing appropriate medical documentation. Krystina Jacques MD documented in this encounter [facility] 06-10-2024 Note HNO ID: [id number] Author: KRYSTINA JACQUES MD Service: ? Author Type: Physician Type: Progress Notes Filed: 06/11/2024 15:03 Note Text: Melanie Levy 1980 REFERRING PHYSICIAN: Marty Patterson APRN.BEER [employer]ER CHIEF COMPLAINT: Consult (Left breast abscess vs. Cyst. ) HPI: The patient is a 43 year old female presents with left breast superficial abscess. She was noted to have a sebaceous cyst in the area by mammograms/US of left breast in April of this year. Around 06/05/2024, she noted increasing pain/swelling/redness in the area. She notes no drainage. She was started on Keflex and notes slightly improved symptoms. She denies fevers. She denies diabetes, but admits to cigarettes use. PAST MEDICAL HISTORY Diagnosis Date Migraine without aura, without mention of intractable migraine without mention of status migrainosus 07/22/2005 Prediabetes 2020 PAST SURGICAL HISTORY Procedure Laterality Date LAPAROSCOPY SURG CHOLECYSTECTOMY 08/21/1998 Cholecystectomy, lap MIRENA IUD 04/24/2024 Insertion Current Outpatient Medications Medication Sig cephALEXin (KEFLEX) 500 mg capsule Take 1 capsule by mouth four times daily for 7 days. Phentermine HCl 37.5 mg tablet Take 1 tablet by mouth daily before breakfast for 90 days. levonorgestrel (MIRENA) 21 mcg/24 hr (8 yrs) 52 mg IUD 1 Each by INTRAUTERINE route as directed. metFORMIN ER (GLUCOPHAGE XR) 500 mg 24 hr tablet Take 2 tablets by mouth daily with dinner. No current facility-administered medications for this visit. ALLERGIES: Latex PERSONAL HISTORY: Social History Tobacco Use Smoking status: Every Day Current packs/day: 0.00 Types: Cigarettes Last attempt to quit: 10/16/2016 Years since quittin.6 Smokeless tobacco: Never Tobacco comments: one pack a week/ about 8 per day. Vaping Use Vaping status: Former Substances: Nicotine, Flavoring Devices: Pre-filled or refillable cartridge Substance Use Topics Alcohol use: Yes Alcohol/week: 3.0 standard drinks of alcohol Types: 2 Cans of beer, 1 Shots of liquor per week Drug use: Never FAMILY HISTORY Problem Relation Age of Onset Obesity Mother other (dysplastic nerves [Other]) Father and one sister Obesity Father Obesity Sister Hypertension Sister Migraines Sister Obesity Sister COPD Maternal Grandmother Heart disease Maternal Grandmother Obesity Maternal Grandmother Diabetes Paternal Grandmother Obesity Paternal Grandmother Obesity Paternal Grandfather The review of systems data was entered by the nurse and reviewed by co Nursing Notes: Davonte Abarca RN 06/10/2024 10:47 AM Signed REVIEW OF SYSTEMS: General: The patient denies fatigue, denies weight loss, denies weight gain, denies feeling hot, and denies feelings of cold. Eyes: The patient denies glaucoma, denies eye injury/surgery, wears glasses or contacts. Ear/Nose/Throat: The patient NOTES allergies, denies hayfever, denies ear infections, and denies bloody noses. Cardiovascular: The patient denies chest pain, denies heart disease, denies high blood pressure,denies cardiac stent, denies prior heart attack, denies irregular heart beat, denies high cholesterol, denies poor circulation, denies heart failure, other cardiac issues, denies claudication, denies cold feet, denies peripheral arterial stent. Respiratory: The patient denies tuberculosis, denies pneumonia, denies frequent cough, denies pulmonary embolism, denies shortness of breath, and denies coughing up blood. Gastrointestinal: The patient denies difficulty swallowing, denies acid reflux, denies ulcers, denies vomiting, denies jaundice/hepatitis, denies gallbladder problems, denies black or tarry stools, denies hemorrhoids, denies bleeding from rectum, denies diverticulitis, denies constipation, denies diarrhea, denies loss of stool control, and denies hernias. Kidney/Bladder: The patient denies kidney stones, denies urine infections, and denies bloody urine. Skin: The patient denies a history of skin cancer, denies bleeding/changing moles, and denies a history of skin rash. Neurologic: The patient denies a history of epilepsy/convulsions, NOTES headaches, denies head/spinal injuries, and denies stroke/TIA. Psychiatric: The patient denies psychiatric medications, denies depression, and denies voices, denies substance abuse. Endocrine: The patient denies thyroid disorders, NOTES diabetes, and denies hormonal problems. Hematologic: The patient denies a history of bruising, denies bleeding, and denies anemia, denies blood clots. Infections: The patient denies a history of measles and mumps, denies rheumatic fever, and denies sexually transmitted diseases. Musculoskeletal: The patient denies back pain/injury, denies back problems, denies sciatica, denies knee/foot trouble, denies arthritis, or denies gout. When was patient's last Mammogram screening? 04/24/2024, 06/07/2024 Last (more content not included)... [facility] 06-10-2024 History of Present illness Narrative Melanie Levy 1980 REFERRING PHYSICIAN: Marty Patterson APRN.BEER MAKER CHIEF COMPLAINT: Consult (Left breast abscess vs. Cyst. ) HPI: The patient is a 43 year old female presents with left breast superficial abscess. She was noted to have a sebaceous cyst in the area by mammograms/US of left breast in April of this year. Around 06/05/2024, she noted increasing pain/swelling/redness in the area. She notes no drainage. She was started on Keflex and notes slightly improved symptoms. She denies fevers. She denies diabetes, but admits to cigarettes use. PAST MEDICAL HISTORY Diagnosis Date Migraine without aura, without mention of intractable migraine without mention of status migrainosus 07/22/2005 Prediabetes 2020 PAST SURGICAL HISTORY Procedure Laterality Date LAPAROSCOPY SURG CHOLECYSTECTOMY 08/21/1998 Cholecystectomy, lap MIRENA IUD 04/24/2024 Insertion Current Outpatient Medications Medication Sig cephALEXin (KEFLEX) 500 mg capsule Take 1 capsule by mouth four times daily for 7 days. Phentermine HCl 37.5 mg tablet Take 1 tablet by mouth daily before breakfast for 90 days. levonorgestrel (MIRENA) 21 mcg/24 hr (8 yrs) 52 mg IUD 1 Each by INTRAUTERINE route as directed. metFORMIN ER (GLUCOPHAGE XR) 500 mg 24 hr tablet Take 2 tablets by mouth daily with dinner. No current facility-administered medications for this visit. ALLERGIES: Latex PERSONAL HISTORY: Social History Tobacco Use Smoking status: Every Day Current packs/day: 0.00 Types: Cigarettes Last attempt to quit: 10/16/2016 Years since quittin.6 Smokeless tobacco: Never Tobacco comments: one pack a week/ about 8 per day. Vaping Use Vaping status: Former Substances: Nicotine, Flavoring Devices: Pre-filled or refillable cartridge Substance Use Topics Alcohol use: Yes Alcohol/week: 3.0 standard drinks of alcohol Types: 2 Cans of beer, 1 Shots of liquor per week Drug use: Never FAMILY HISTORY Problem Relation Age of Onset Obesity Mother other (dysplastic nerves [Other]) Father and one sister Obesity Father Obesity Sister Hypertension Sister Migraines Sister Obesity Sister COPD Maternal Grandmother Heart disease Maternal Grandmother Obesity Maternal Grandmother Diabetes Paternal Grandmother Obesity Paternal Grandmother Obesity Paternal Grandfather The review of systems data was entered by the nurse and reviewed by co Nursing Notes: Davonte Abarca RN 06/10/2024 10:47 AM Signed REVIEW OF SYSTEMS: General: The patient denies fatigue, denies weight loss, denies weight gain, denies feeling hot, and denies feelings of cold. Eyes: The patient denies glaucoma, denies eye injury/surgery, wears glasses or contacts. Ear/Nose/Throat: The patient NOTES allergies, denies hayfever, denies ear infections, and denies bloody noses. Cardiovascular: The patient denies chest pain, denies heart disease, denies high blood pressure,denies cardiac stent, denies prior heart attack, denies irregular heart beat, denies high cholesterol, denies poor circulation, denies heart failure, other cardiac issues, denies claudication, denies cold feet, denies peripheral arterial stent. Respiratory: The patient denies tuberculosis, denies pneumonia, denies frequent cough, denies pulmonary embolism, denies shortness of breath, and denies coughing up blood. Gastrointestinal: The patient denies difficulty swallowing, denies acid reflux, denies ulcers, denies vomiting, denies jaundice/hepatitis, denies gallbladder problems, denies black or tarry stools, denies hemorrhoids, denies bleeding from rectum, denies diverticulitis, denies constipation, denies diarrhea, denies loss of stool control, and denies hernias. Kidney/Bladder: The patient denies kidney stones, denies urine infections, and denies bloody urine. Skin: The patient denies a history of skin cancer, denies bleeding/changing moles, and denies a history of skin rash. Neurologic: The patient denies a history of epilepsy/convulsions, NOTES headaches, denies head/spinal injuries, and denies stroke/TIA. Psychiatric: The patient denies psychiatric medications, denies depression, and denies voices, denies substance abuse. Endocrine: The patient denies thyroid disorders, NOTES diabetes, and denies hormonal problems. Hematologic: The patient denies a history of bruising, denies bleeding, and denies anemia, denies blood clots. Infections: The patient denies a history of measles and mumps, denies rheumatic fever, and denies sexually transmitted diseases. Musculoskeletal: The patient denies back pain/injury, denies back problems, denies sciatica, denies knee/foot trouble, denies arthritis, or denies gout. When was patient's last Mammogram screening? 04/24/2024, 06/07/2024 Last Colonoscopy: None Davonte Abarca RN PHYSICAL EXAMINATION: General: The patient is 43 year old female, well nourished, well hydrated in no acute distress. The patient is oriented to time, place, and person. VITALS: Blood pressure 106/69, pulse 82, temperature 36.3 C (97.4 F), height 165.1 cm (5' 5), weight 103.3 kg (227 lb 12.8 oz), SpO2 98%. Body mass index is 37.91 kg/m . Head: Normal cephalic, atraumatic Eyes: pupils are equally round, sclera are clear/anicteric Neck is supple with no tracheal deviation Chest/breast: inner upper aspect of left breast with 2.5 cm infected sebaceous cyst Cardiac: normal heart sounds, regular Respiratory: Normal respiratory excursion and pattern. Abdominal exam: benign Extremities: no clubbing, cyanosis or edema. Neuro: non focal Psych: normal mood Assessment IMPRESSION: infected sebaceous cyst of left breast PLAN: I have discussed the above with the patient. Will continue antibiotics ( I have added an additional amount), recommend heat, also to area Patient to follow up with me next week, hopefully size will decrease, so incision need not be as large, given this is a visible aspect of the breast (patient's cleavage) and to decrease cosmetic deformity. The patient acknowledges the above. I have answered all questions to the patient s satisfaction and the patient has no further questions. Patient to follow up with me next week. I have confirmed and edited as necessary, the PFSH and ROS obtained by others. Consultation requested by Marty Patterson for an opinion regarding patient's left breast skin abscess. My final recommendations will be communicated back to the requesting physician by way of shared Medical record or letter to requesting physician via [place] mail. . Diagnoses: (N61.1) Breast abscess Medical Decision Making: Problems: Low: Acute, uncomplicated illness or injury Risk: Moderate: Drug management Medical Decision Making Level: 3 - Low Krystina Jacques MD documented in this encounter [facility] 06-10-2024 Nurse Note REVIEW OF SYSTEMS: General: The patient denies fatigue, denies weight loss, denies weight gain, denies feeling hot, and denies feelings of cold. Eyes: The patient denies glaucoma, denies eye injury/surgery, wears glasses or contacts. Ear/Nose/Throat: The patient NOTES allergies, denies hayfever, denies ear infections, and denies bloody noses. Cardiovascular: The patient denies chest pain, denies heart disease, denies high blood pressure,denies cardiac stent, denies prior heart attack, denies irregular heart beat, denies high cholesterol, denies poor circulation, denies heart failure, other cardiac issues, denies claudication, denies cold feet, denies peripheral arterial stent. Respiratory: The patient denies tuberculosis, denies pneumonia, denies frequent cough, denies pulmonary embolism, denies shortness of breath, and denies coughing up blood. Gastrointestinal: The patient denies difficulty swallowing, denies acid reflux, denies ulcers, denies vomiting, denies jaundice/hepatitis, denies gallbladder problems, denies black or tarry stools, denies hemorrhoids, denies bleeding from rectum, denies diverticulitis, denies constipation, denies diarrhea, denies loss of stool control, and denies hernias. Kidney/Bladder: The patient denies kidney stones, denies urine infections, and denies bloody urine. Skin: The patient denies a history of skin cancer, denies bleeding/changing moles, and denies a history of skin rash. Neurologic: The patient denies a history of epilepsy/convulsions, NOTES headaches, denies head/spinal injuries, and denies stroke/TIA. Psychiatric: The patient denies psychiatric medications, denies depression, and denies voices, denies substance abuse. Endocrine: The patient denies thyroid disorders, NOTES diabetes, and denies hormonal problems. Hematologic: The patient denies a history of bruising, denies bleeding, and denies anemia, denies blood clots. Infections: The patient denies a history of measles and mumps, denies rheumatic fever, and denies sexually transmitted diseases. Musculoskeletal: The patient denies back pain/injury, denies back problems, denies sciatica, denies knee/foot trouble, denies arthritis, or denies gout. When was patient's last Mammogram screening? 04/24/2024, 06/07/2024 Last Colonoscopy: None Davonte Abarca RN [facility] 06-10-2024 Nurse Note REVIEW OF SYSTEMS: General: The patient denies fatigue, denies weight loss, denies weight gain, denies feeling hot, and denies feelings of cold. Eyes: The patient denies glaucoma, denies eye injury/surgery, wears glasses or contacts. Ear/Nose/Throat: The patient NOTES allergies, denies hayfever, denies ear infections, and denies bloody noses. Cardiovascular: The patient denies chest pain, denies heart disease, denies high blood pressure,denies cardiac stent, denies prior heart attack, denies irregular heart beat, denies high cholesterol, denies poor circulation, denies heart failure, other cardiac issues, denies claudication, denies cold feet, denies peripheral arterial stent. Respiratory: The patient denies tuberculosis, denies pneumonia, denies frequent cough, denies pulmonary embolism, denies shortness of breath, and denies coughing up blood. Gastrointestinal: The patient denies difficulty swallowing, denies acid reflux, denies ulcers, denies vomiting, denies jaundice/hepatitis, denies gallbladder problems, denies black or tarry stools, denies hemorrhoids, denies bleeding from rectum, denies diverticulitis, denies constipation, denies diarrhea, denies loss of stool control, and denies hernias. Kidney/Bladder: The patient denies kidney stones, denies urine infections, and denies bloody urine. Skin: The patient denies a history of skin cancer, denies bleeding/changing moles, and denies a history of skin rash. Neurologic: The patient denies a history of epilepsy/convulsions, NOTES headaches, denies head/spinal injuries, and denies stroke/TIA. Psychiatric: The patient denies psychiatric medications, denies depression, and denies voices, denies substance abuse. Endocrine: The patient denies thyroid disorders, NOTES diabetes, and denies hormonal problems. Hematologic: The patient denies a history of bruising, denies bleeding, and denies anemia, denies blood clots. Infections: The patient denies a history of measles and mumps, denies rheumatic fever, and denies sexually transmitted diseases. Musculoskeletal: The patient denies back pain/injury, denies back problems, denies sciatica, denies knee/foot trouble, denies arthritis, or denies gout. When was patient's last Mammogram screening? 04/24/2024, 06/07/2024 Last Colonoscopy: None Davonte Abarca RN documented in this encounter [facility] 06-07-2024 Nurse Note 96 [facility] 06-07-2024 Nurse Note 96 documented in this encounter [facility] 06-07-2024 Note HNO ID: [id number] Author: MARTY PATTERSON APRN.BEER MAKER Service: ? Author Type: Nurse Practitioner Type: Progress Notes Filed: 06/07/2024 10:03 Note Text: Linen Room Supervisor offered: Patient declines. Melanie Levy presents today for IUD check. She had a Mirena placed on 04/24/2024. She has had spotting and cramping since placement. Her cramping is sometimes as severe as a 7/10. She also notes a breast lump today that she's concerned about. She has breast imaging on 04/24/24 for it. Ultrasound showed: The 0.8 cm x 0.6 cm x 0.6 cm oval lesion within the skin of the left breast resembles a sebaceous cyst and is benign. The cyst resolved, but then resurfaced 2 days ago. It is painful and red. 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 As applicable, any other physician, advance practice provider, medical student, or other health professional student that will be observing or involved in the sensitive examination for educational or training purposes was discussed with the Patient or Authorized Superintendent Refuse Disposal. The Patient or Authorized Superintendent Refuse Disposal has agreed to proceed with the sensitive examination. (Sensitive examination includes inspection and/or palpation of the breasts, pelvis, prostate and anorectal regions). PHYSICAL EXAMINATION: BP 110/72 Pulse 88 Resp 14 Wt 222 lb (100.7kg) SpO2 96% ABDOMEN:soft, non-tender, no masses, no hepatosplenomegaly, and no lymphadenopathy EXTERNAL GENITALIA: Normal genitalia and Bartholins, Urethra, Sken'e normal CERVIX: smooth, no lesions. IUD strings visible. UTERUS: normal size, regular, non-tender, and freely mobile ADNEXA: negative for tenderness or masses BREAST: + 4 cm erythematous firm lump to inner left breast, warm, edematous IMPRESSION/PLAN: IUD likely correctly positioned. With severe cramping at times, recommend pelvic ultrasound to confirm. Ordered. Breast abscess - ICD9: 611.0, ICD10: N61.1 - Patient is going out of town to [place] this afternoon - Discussed signs of worsening infection: increasing redness, swelling, pain, warmth - recommend going to ER should this occur - Recommend going to ER with fever or chills - Alternative Tylenol and Ibuprofen for pain, warm compresses - Rx for Keflex sent - Breast imaging ordered, follow up with general surgery - Keep area clean and dry - Discussed consideration of going to ER today. Patient declines. Recommend watching area closely and to go to nearest ER in [place] with worsening signs or symptoms. 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 Melanie Levy presents today for IUD check. She had a Mirena placed on 04/24/2024. She has had spotting and cramping since placement. Her cramping is sometimes as severe as a 7/10. She also notes a breast lump today that she's concerned about. She has breast imaging on 04/24/24 for it. Ultrasound showed: The 0.8 cm x 0.6 cm x 0.6 cm oval lesion within the skin of the left breast resembles a sebaceous cyst and is benign. The cyst resolved, but then resurfaced 2 days ago. It is painful and red. 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 As applicable, any other physician, advance practice provider, medical student, or other health professional student that will be observing or involved in the sensitive examination for educational or training purposes was discussed with the Patient or Authorized Superintendent Refuse Disposal. The Patient or Authorized Superintendent Refuse Disposal has agreed to proceed with the sensitive examination. (Sensitive examination includes inspection and/or palpation of the breasts, pelvis, prostate and anorectal regions). PHYSICAL EXAMINATION: BP 110/72 Pulse 88 Resp 14 Wt 222 lb (100.7kg) SpO2 96% ABDOMEN:soft, non-tender, no masses, no hepatosplenomegaly, and no lymphadenopathy EXTERNAL GENITALIA: Normal genitalia and Bartholins, Urethra, Sken'e normal CERVIX: smooth, no lesions. IUD strings visible. UTERUS: normal size, regular, non-tender, and freely mobile ADNEXA: negative for tenderness or masses BREAST: + 4 cm erythematous firm lump to inner left breast, warm, edematous IMPRESSION/PLAN: IUD likely correctly positioned. With severe cramping at times, recommend pelvic ultrasound to confirm. Ordered. Breast abscess - ICD9: 611.0, ICD10: N61.1 - Patient is going out of town to [place] this afternoon - Discussed signs of worsening infection: increasing redness, swelling, pain, warmth - recommend going to ER should this occur - Recommend going to ER with fever or chills - Alternative Tylenol and Ibuprofen for pain, warm compresses - Rx for Keflex sent - Breast imaging ordered, follow up with general surgery - Keep area clean and dry - Discussed consideration of going to ER today. Patient declines. Recommend watching area closely and to go to nearest ER in [place] with worsening signs or symptoms. Marty Patterson APRN.CNP Medical Decision Making: Problems: Low: Acute, uncomplicated illness or injury and 2+ self-limited or minor problems Data: Unique test(s) ordered: 3+ Risk: Low: Low risk from testing/treatment Moderate: Drug management Medical Decision Making Level: 4 - Moderate documented in this encounter [facility] 05-23-2024 Instructions Sara Bergeron APRN.CNP - 05/23/2024 2:32 PM EDT Images from the original note were not included. PHENTERMINE -- Please take tablet or capsule as directed. May need to decrease dose or stop if uncontrolled BP or sustained elevated pulse. -- Please monitor your blood pressure (either purchase BP cuff, or go to pharmacy to check your BP at a local pharmacy). Please avoid any stimulants (in the form of caffeinated beverages like coffee, tea, sports drinks) and caution with decongestants. We will require an updated blood pressure and heart rate at follow up visits (this includes virtual visits). -- Please monitor for , if at any point you become please stop the medication. THIS IS A SUMMARY OF OUR DISCUSSION ABOUT THIS MEDICATION. PLEASE READ IT IS IMPORTANT FOR YOUR WEIGHT LOSS PLAN Per updated [place] state rules, initially, a one month supply of phentermine is prescribed. You will need to be seen every month for the first 3 months for follow-up and to assess effectiveness with a total 5% weight loss in that 3 month period. If the phentermine is effective for you, treatment with phentermine can continue with a one month supply of phentermine prescribed at a time with 2 refills. You, the patient, are responsible for making an appointment to see a provider within 12 weeks in order to get a refill of this medication. It is imperative that you get this (and future) phentermine prescriptions within 7 days as pharmacists will NOT refill prescriptions outside this 7 day window per State law. Phentermine can only be prescribed for a 3 month interval at a time. You are aware of the following statements per the [facility] pharmacy board rules. 1. Timely refills are required 2. Every 12 weeks office visits are required. 3. ALL prescriptions need to be filled within 7 days of the written prescription 4. Refills need to be done EVEN IF there is medication still available ? Phentermine (fen ter meen) What are the common names? Adipex-P, Ionamin Why is this medication prescribed? Phentermine was approved by the FDA in 195 for short term weight loss. It works by decreasing appetite. Phentermine is absorbed by the body and travels to the appetite center of the brain. It works by helping you feel less hungry, less driven to eat, more satisfied with less food. I ve heard about fen-phen. Will phentermine affect my heart? The two drug combination fenfluramine/phentermine, usually called fen-phen, became popular in the early as a diet pill. However, it was withdrawn by the FDA in late 1996 after studies which showed that fenfluramine can cause fatal pulmonary hypertension and heart valve problems. Phentermine is not a combination medication and does not contain the compound fenfluramine. What special precautions should I follow? Before having phentermine prescribed, tell your doctor and pharmacist: If you have allergies to any component of phentermine If you are , plan to become , are breast-feeding, or if you become while taking phentermine What are the absolute contraindications? Stroke or Transient Ischemic Attacks Cardiac arrhythmias or Atrial fibrillation Coronary artery disease Seizure Disorder Uncontrolled blood pressure Angina Congestive Heart Failure Valvular Heart Disease or primary pulmonary hypertension Drug interactions. Use of monamine oxidase inhibitors (MAOI s) What are the side effects of phentermine? Immediately discontinue the medicine and seek medical help if you have severe symptoms such as chest pain, shortness of breath, feeling faint, ability to think clearly, eye pain or other visual symptoms: Palpitations (strong or rapid heartbeat) Difficulty sleeping or falling asleep Elevated blood pressure Dry mouth Anxiety or agitation Getting a stimulant/or hyper effect or jitteriness-(Usually goes away after a few days or weeks) Glaucoma In case of emergency/overdose In case of overdose, call your local poison control center at or call local emergency services at [phone]. What other information should I know? Keep all appointments with your doctor and the laboratory. Do not let anyone else take your medication. Phentermine is a controlled substance. It is FDA approved for up to 3 months. Prescriptions may be refilled only a limited number of times. Keep a written list of all of your prescription and nonprescription (kdby-ctc-rafefxe) medicines, in addition to vitamins, minerals, or other dietary supplements. If you are taking the extended-release (long-acting) tablets, do not split, chew, or crush them tablet. There are some tablets that can be crushed and mixed with food Alcohol can make the side effects of phentermine worse How should I monitor while on this medication? Please check your blood pressure (BP) and resting pulse weekly (twice a week in the first 2 weeks). If the BP is over 140/90 (either one), or if the resting pulse is over 96 per minute (count for 10 seconds and multiply by 6), then stop the medication and call your doctor. Continue to improve your dietary and physical activity habits as the combination works best while on this medication. Start out by taking the medication in the morning at least 30 minutes prior to meals. If the effect seems to wear off by dinner time, try taking it later in the morning, but taking too late may result in trouble falling asleep. Be sure to eat regular meals. Less hunger does not make it appropriate to skip meals. Monitor your caffeine intake and use of decongestants as they may worsen the effects of phentermine Make sure to have an eye exam, including the pressure in your eyes (intra-ocular pressure), once a year. What should I do if I forget a dose? Skip the missed dose and continue your regular dosing schedule the next day. Do not take a double dose to make up for a missed one. Sources [facility] Consumer Medication Info: http://www.ncbi.nlm.nih.gov/pubmed health/IOA3896912/ AMA patient handouts: http://www.amaassn.org/ama1/pub/up load/mm/433/phrxsurgery.pdf Drugs.com: http://www.drugs.com/pro/phentermi ne.html Constipation - Docusate sodium 200 mg or Ysabel-colace 2 tablets at bedtime. Add Miralax in the morning as needed. - Whole food low-carb diet with 30 g of protein 3 times a day and up to 30 g of carbs at lunch and dinner only. Meals - protein is a goal and carbohydrates are a limit Snacks - all protein or more protein than carbs Protein - no carbs Egg 1 large - 6g Egg white 1 large 3.6g 3 oz is approximately the size of a deck of cards and equals 21 g protein so 4 oz is 28 gm protein Beef, Chicken, [place], Pork, [place] 1 oz 7g Fish, Tuna Fish 1 oz 7g (Starkist tuna packet 2.6 oz 17 gm protein) Seafood (Crabmeat, Shrimp, Lobster) 1 oz 6g Protein shakes (read labels) Premier Protein or generic [employer] Equate, [employer] High Performance- 30g protein & 1g carb - meal replacement Premier Protein powder or generic- 30 gm protein, 1g carb Premier Protein plant protein powder - 25 gm protein, 0 suger/2 carb Vanilla and chocolate (not a meal replacement) Fairlife 30 gram protein - 30g protein & 3g carb BOOST Glucose Control Max 30g Protein Nutritional Drink - 30g protein & 1 carb - meal replacement Slimfast High Protein - 20g protein & 1g carb Ensure Max Protein Nutrition Shake 30g protein & 2 carb Protein AND carbs Beef/[place] Jerky 1 oz dried 10-15g protein - check carb count, can be high if sugar added Slim Herb - 6 gm protein and 4 net carb Great Value original turkey sausage sticks - 7 gm protein and 2 gm carb Beny & Davin (at [employer]) Original smoked sausage sticks - 8 gm protein and 0 carb Imitation Crab Meat 1 oz - 2g protein & 4g carb Milk, skim 2% or 1% 8 oz - 8g protein & 12g carb Norwegian yogurt Full Fat Norwegian Yogurt 1 cup - 20.4g protein & 9.1g carb 2% Norwegian Yogurt 1 cup - 22.7g protein & 9.1g carb 0% (fat-free) Norwegian Yogurt - 1 cup 24g protein & 9.3g carb Aldi Protein Norwegian yogurt single svg - 15g protein & 7g carb Chobani Zero Sugar single svg: - 12g protein & 5g carb Dannon Norwegian Light + Fit 1 single svg - 12g protein & 9g carb Oikos Pro single svg - 20g protein & 8g carb Oikos Triple Zero Norwegian Nonfat Yogurt 1 single svg - 15g protein & 7g carb :ratio, KETO Friendly Dairy Snack 1 single svg - 15g protein & 2g carb :ratio Protein 1 single svg - 25g protein & 8g carb Two Good Lowfat Norwegian Yogurt, [place], Lower Sugar - 12g protein & 2g carb Yoplait Protein 1 single svg 15gm protein & 5gm carb Dairy Free - [place] unsweetened Norwegian almond/soy 15 gm protein & 3 gm carb Cheese each oz Brie 5.9g protein & 0.1g carb Cheddar 7g protein & 0.4g carb Tia 6.7g protein & 0.7g carb Cream Cheese 1.7g protein & 1.2g carb Feta 4g protein & 1.2g carb Mozzarella 6.3g protein & 0.6g carb Parmesan 10g protein & 0.9g carb Estonian 7.6g protein & 1.5g carb Cottage Cheese 1/2 c Breakstone 2% 13g protein 7g carb [place] 2% 13g protein 5 g carb Good Culture 2% 14g protein 3g carb Tran s Low Fat 12g protein & 4g carb Legumes Lentils cup 9g protein & 20g carb Donahue beans cup 7g protein & 20g carb Kidney, Black, [place], Cannellini beans cup 8g protein & 20g carb Soybeans 1/2 c 14g complete protein & 8.5g carb [place] milk, unsweetened 8 oz 1g protein & 2g carb Soy milk 8 oz 3.5g protein & 1.6g carb Tofu 1/2 cup 10g protein & 2.3g carb Peanut butter, natural 2 Tbsp 7-8g protein & 4g net carbs, 190 calories PB2 powder 2 Tbsp 6g protein & 5g carb Nuts and Seeds per oz Almonds - 5.9g protein & 6.1g carb [place] Nuts - 4.0g protein & 3.4g carb Cashews - 5.1g protein & 9.2g carb Hazelnuts - 4.2g protein & 4.7g carb Hemp seeds 3 T/30 gms - 9.5 gm complete protein and 2.5 gm carb Peanuts - 7g protein & 4.6g carb Pecans - 2.6g protein & 3.9g carb Pistachios - 5.8g protein & 7.8g carb Pumpkin Seeds - 6.9g protein & 5g carb [place] Seeds - 5.8g protein & 5.6g carb Walnuts - 4.3g protein & 3.8g carb <15 gram carb fruit options Berries have the lowest sugar content 1/2 medium apple - 12.5 carbs 1/2 medium avocado - 6.5 gm carbs 1/2 medium banana - 15 carbs 1/2 cup blueberries - 11 carbs - may actually help you lose weight 1/2 cup fresh cherries -11 carbs 1 medium Tasha -9 carbs 1/2 cup fresh cranberries - 6.5 carbs 1/2 c grapes - 15 carbs 1/2 medium grapefruit - 10.5 carbs 1/2 cup diced honeydew melon - 8 carbs 1 medium kiwi without skin - 11 carbs 1/2 cup sliced julia -14 carbs 1 medium nectarine - 15 carbs 1 medium orange -15.5 carbs 1 medium peach -14.5 carbs 1/2 cup fresh pineapple -11 carbs 1 medium plum -7.5 carbs 1 prune - 6 carbs 1/4 c raisins - 31.25 carbs 1/2 cup raspberries -7.5 carbs 1/2 c strawberries - 12.7 carbs 1 medium tangerine -12 carbs 1/2 cup diced watermelon - 6 carbs 5 (FIVE) gram carb vegetable options 1 cup raw OR cup cooked: Asparagus Trivedi sprouts Beets Broccoli Brussel sprouts Cabbage Carrots Cauliflower Celery Ecorse Eggplant Green beans Lettuce Peppers Snap peas Spaghetti squash Spinach Tomato Turnips Zucchini 15 gram carb vegetable options cup cooked corn or hominy corn on the cob, large (5 oz) cup cooked green peas 4.3 gm complete protein cup cooked donahue beans 1 small potato or sweet potato cup cooked potato, plain cup cooked sweet potato, plain 1 cup winter squash (pumpkin, acorn, butternut) 1 cup marinara or pasta sauce - check label cup tomato juice cup tomato puree Beans, Seeds, Nuts cup cooked beans (kidney, diamond, red, green, etc.) cup cooked lentils cup baked beans 4 tablespoons nut butter Grains Brown rice 1/2 c 5.5g protein 24 carb White long-grain rice 1/2 c 2g protein 22.5 carb Quinoa 1/2 c 4 gm complete protein 25 carb Oatmeal, old fashioned 1/2 c 5g protein 27g carb High Protein Snack Ideas 1. Jerky 2. [place] mix without dried fruit 3. [place] roll-ups 4. Norwegian yogurt 5. Veggies and yogurt dip 6. Tuna 7. Hard-boiled eggs 8. Peanut butter with celery 9. Cheese slices/ Cheese Stick 10. Handful of almonds, peanuts or walnuts 11. Cottage Cheese 12. Beef sticks 13. Protein bars 14. Canned Dinosaur 15. Pumpkin seeds 16. Nut butter 17. Protein shakes 18. Avocado and chicken salad 19. Egg muffins 20. Leftover protein or lunch meat 21. 1/2 c blended cottage cheese or Norwegian yogurt with dry ranch/Mrs. Dash/herb seasoning mix to make protein dip 22. 1/2 c blended cottage cheese with 1 Tbsp sugar-free dry cheesecake pudding mix 12g protein 10 carb 23. Pudding - 1 30 gm protein shake with 1/2 pkg sugar-free pudding 4 svgs - 7.8 gm protein, 5 carb each svg 24. SF Sunkist or Root Beer with 1-2 Tablespoons heavy whipping cream 25. Mini frozen dessert bites - layer protein yogurt, skinny syrup and crushed nuts and freeze documented in this encounter [facility] 05-23-2024 History of Present illness Narrative Images from the original note were not included. Some documentation from previous visit of 04/03/2024 was copied and pasted, documentation has been reviewed and edited as necessary for today's visit. Patient Summary: Melanie is a 43 year old Female who presents for follow-up evaluation of obesity/weight management to treat and prevent related co-morbidities. In our previous visits we have discussed lifestyle intervention including a nutrition recommendations and physical activity optimization. Her last office visit was 1.5 months ago. Assessment/plan from last visit: -Metformin ER 500 mg - 1 gm with dinner Interval History PT specifies the following items as new or significant updates since the last appointment: - is aware that she is eating smaller portions and less snacking after dinner Weight loss since last vist: 2 lb Date: Weight: BMI: Medications: 05/23/2024 229 lb 39.31 phentermine 37.5 04/03/2024 229 lb 39.31 metformin ER 1 gm 02/15/2024 231 lb 39.44 metformin ER 500 mg 01/16/2024 228 lb 38.93 WC: 42 in 5% weight loss = 217 lbs, 10% weight loss = 206 lbs Anti-obesity medications: metformin Benefit:less hunger, a little increased fullness Adverse effects: none Weight promoting medications: none Previous Diet (initial appointment): Low carb during the work week. WE - up late morning. Lunch first meal but same. Awake - 0515 0600 Diet Coke B - 8-9 am meat and cheese snacks or jerky or occasionally PB crackers S - none L - 1200 meat and cheese with raw veg or salad with meat/Ranch dressing S - no D - 6-8 pm Salad with meat or grilled chicken and broccoli or pizza rolls or chicken nuggets if nothing prepared or easy to prepare Eats out on WE - Nauruan, pizza, Citizen [place] S - occasional 8-10 pm chips/dip or popcorn Fluids - Diet Coke, occasional water. Alcohol one WE night - whiskey or coconut rum or cider beer Bedtime - Quality of diet: 24hr recall suggests somewhat healthy diet. Characterization of diet:Structured, excessive cravings, and evening snacking. 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:lack of satiety, mindlessness , and boredom Eating Disorder no Cravings: chips and dip Dietary changes: [id number] B - 9 am 30 gm protein shake WE - SKIP S - occasionally almonds or cheese L - 12-1 pm 30 gm protein shake or meat cheese, raw veg with Ranch or WE left overs protein with vegetables, usually raw or steamed, sometimes small amount rice or potato S - none D - 5440-1043 fresh protein with salad or low-carb veg/sometimes baked potato/small amount pasta Eating out - Nauruan grilled chicken/shrimp with lettuce, sour cream, chips and salsa or burger with 1/2 bun or protein with side salad with Ranch and sometimes 1/2 baked potato with skin S - none Fluids - Diet Coke, occasional water. 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 no Work-related activity:Sedentary. Gym Membership: no Activity Tracker: yes Stress: increased with traveling for work during April. May should be more calm. Sleep: varies Duration: 4 hrs once a week - 8 hours. FISH NO ; CPAP NO Estimated Creatinine Clearance: 98.9 mL/min (based on SCr of 0.85 mg/dL). PAST MEDICAL HISTORY Diagnosis Date Migraine without aura, without mention of intractable migraine without mention of status migrainosus 07/22/2005 Prediabetes 2020 Current Outpatient Medications Medication Sig Dispense Refill levonorgestrel (MIRENA) 21 mcg/24 hr (8 yrs) 52 mg IUD 1 Each by INTRAUTERINE route as directed. 1 Each 0 metFORMIN ER (GLUCOPHAGE XR) 500 mg 24 hr tablet Take 2 tablets by mouth daily with dinner. 180 tablet 1 No current facility-administered medications for this visit. 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 No distress. Results: recent labs reviewed with the patient. Latest Ref Rng & Units 02/12/2024 CMP Sodium 136 - 144 mmol/L 140 Potassium 3.7 - 5.1 mmol/L 3.9 Chloride 98 - 107 mmol/L 110 CO2 22 - 30 mmol/L 19 Glucose 74 - 99 mg/dL 109 BUN 7 - 21 mg/dL 22 Creatinine 0.58 - 0.96 mg/dL 0.85 EGFR >=60 mL/min/1.73m 87 Protein, Total 6.3 - 8.0 g/dL 6.3 Albumin 3.9 - 4.9 g/dL 4.1 Calcium 8.5 - 10.2 mg/dL 8.9 Bilirubin, Total 0.2 - 1.3 mg/dL 0.4 AST 13 - 35 U/L 10 ALT 7 - 38 U/L 10 Alkaline Phosphatase 34 - 123 U/L 46 Cholesterol, Total (mg/dL) Date Value 02/12/2024 151 HDL Cholesterol (mg/dL) Date Value 02/12/2024 51 LDL Cholesterol (mg/dL) Date Value 02/12/2024 88 Triglyceride (mg/dL) Date Value 02/12/2024 60 Latest Ref Rng & Units 02/12/2024 CBC WBC 3.70 - 11.00 k/uL 7.55 RBC 3.90 - 5.20 m/uL 4.28 Hemoglobin 11.5 - 15.5 g/dL 13.3 Hematocrit 36.0 - 46.0 % 38.4 MCV 80.0 - 100.0 fL 89.7 MCH 26.0 - 34.0 pg 31.1 MCHC 30.5 - 36.0 g/dL 34.6 RDW-CV 11.5 - 15.0 % 12.5 Platelet Count 150 - 400 k/uL 239 MPV 9.0 - 12.7 fL 10.3 Vitamin D 25 Hydroxy Date Value Ref Range Status 02/12/2024 48.2 31.0 - 80.0 ng/mL Final Comment: Classification of 25 OH Vitamin D status: Deficiency/Insufficiency: < or = 30 ng/ml. Sufficiency/Optimal Levels: 31-80 ng/mL Toxicity: > 100 ng/mL. Test performed by chemiluminescent immunoassay. TSH (mIU/L) Date Value 02/12/2024 2.170 Hemoglobin A1C (%) Date Value 02/12/2024 5.3 Insulin Date Value Ref Range Status 02/12/2024 10.7 3.0 - 25.0 mU/L Final Anti-Obesity Medications >Phentermine: No uncontrolled HTN, No CVD Hx or hx of seizure disorder. No MAOI inhibitor use. No drug abuse hx. Crcl > 15. >Topiramate/zonisamide: No seizure, kidney stone or glaucoma hx. Has hx of migraines, and hx of poor sleep. Is of Child bearing age - Depo. >Qsymia: see above >Contrave: No uncontrolled HTN or hx of seizure disorder. No MAOI inhibitor use. No opiate use. >Saxenda/Wegovy/Ozempic: Cost. Ins coverage? >Metformin: eGFR > 30. No contraindications or medication interactions. Assessment/Plan: Melanie Levy is a 43 year old yo with Class II obesity who presented today for follow up for supervised weight loss to treat and prevent related co-morbidities. 1. Prediabetes - ICD9: 790.29, ICD10: R73.03 (primary diagnosis) - METFORMIN ER 500 MG TABLET,EXTENDED RELEASE 24 HR - Whole food balanced protein low-carb nutrition - BASIC METABOLIC PANEL 2. Intractable migraine without aura and without status migrainosus - ICD9: 346.11, ICD10: G43.019 - currently rare occurrences 3. Class 2 obesity with body mass index (BMI) of 38.0 to 38.9 in adult, unspecified obesity type, unspecified whether serious comorbidity present - ICD9: 278.00, V85.38, ICD10: E66.9, Z68.38 Weight increasing - BASIC METABOLIC PANEL - METFORMIN ER 500 MG TABLET,EXTENDED RELEASE 24 HR - 1 gm at dinner - PHENTERMINE 37.5 MG TABLET Phentermine. Risk/benefits discussed at length including potential side effects of increased anxiety, insomnia, increased heart rate, and increased blood pressure. I have asked the patient to monitor blood pressure and avoid any stimulants (in the form of caffeinated beverages like coffee, tea, sports drinks) initially. Patient denies history of arrhythmias, coronary artery disease (atherosclerosis), heart failure, pulmonary hypertension, stroke, valvular heart disease (prolapse, regurgitation, stenosis). The patient is currently enrolled in a diet and exercise program The patient has no known history of contraindications The patient is free from drug or ETHO abuse The patient is not or and is aware not to become while using this medication [place]ARS was reviewed. PDMP website checked and validated. All prescriptions have been APPROPRIATELY filled. No suspicious activity was identified. - Continue -Whole food balanced protein low-carb nutrition -- Encouraged the patient to improve her physical activity. . An overall goal of 150-200 minutes per week of exercise has been effective in weight loss and maintenance. - An overall goal of 150-200 minutes per week of exercise has been effective in weight loss and maintenance. Prescription instructions reviewed with patient as applicable. Potential red flag symptoms discussed with the patient. Reviewed appropriate action plan to take if red flag symptoms occur. Patient agreeable to treatment plan. Follow up 3 months R Gary due to provider FMLA - weight needs to be 217 lbs or less to continue phentermine. Sara Bergeron CNP Advanced Education from the [employer]esity [employer] Medical Decision Making: Problems: Moderate: 2+ stable chronic illnesses and 1+ chronic illnesses with change Data: Unique test(s) ordered: 1 Risk: Moderate: Drug management and Moderate risk from testing/treatment Medical Decision Making Level: 4 - Moderate documented in this encounter [facility] 05-23-2024 Note HNO ID: [id number] Author: SARA BERGERON APRN.CNP Service: ? Author Type: Nurse Practitioner Type: Progress Notes Filed: 05/23/2024 20:27 Note Text: Some documentation from previous visit of 04/03/2024 was copied and pasted, documentation has been reviewed and edited as necessary for today's visit. Patient Summary: Melanie is a 43 year old Female who presents for follow-up evaluation of obesity/weight management to treat and prevent related co-morbidities. In our previous visits we have discussed lifestyle intervention including a nutrition recommendations and physical activity optimization. Her last office visit was 1.5 months ago. Assessment/plan from last visit: -Metformin ER 500 mg - 1 gm with dinner Interval History PT specifies the following items as new or significant updates since the last appointment: - is aware that she is eating smaller portions and less snacking after dinner Weight loss since last vist: 2 lb Date: Weight: BMI: Medications: 05/23/2024 229 lb 39.31 phentermine 37.5 04/03/2024 229 lb 39.31 metformin ER 1 gm 02/15/2024 231 lb 39.44 metformin ER 500 mg 01/16/2024 228 lb 38.93 WC: 42 in 5% weight loss = 217 lbs, 10% weight loss = 206 lbs Anti-obesity medications: metformin Benefit:less hunger, a little increased fullness Adverse effects: none Weight promoting medications: none Previous Diet (initial appointment): Low carb during the work week. WE - up late morning. Lunch first meal but same. Awake - 0515 0600 Diet Coke B - 8-9 am meat and cheese snacks or jerky or occasionally PB crackers S - none L - 1200 meat and cheese with raw veg or salad with meat/Ranch dressing S - no D - 6-8 pm Salad with meat or grilled chicken and broccoli or pizza rolls or chicken nuggets if nothing prepared or easy to prepare Eats out on WE - [place], pizza, [place] S - occasional 8-10 pm chips/dip or popcorn Fluids - Diet Coke, occasional water. Alcohol one WE night - whiskey or coconut rum or cider beer Bedtime - Quality of diet: 24hr recall suggests somewhat healthy diet. Characterization of diet:Structured, excessive cravings, and evening snacking. 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:lack of satiety, mindlessness , and boredom Eating Disorder no Cravings: chips and dip Dietary changes: [id number] B - 9 am 30 gm protein shake WE - SKIP S - occasionally almonds or cheese L - 12-1 pm 30 gm protein shake or meat cheese, raw veg with Ranch or WE left overs protein with vegetables, usually raw or steamed, sometimes small amount rice or potato S - none D - 4391-5618 fresh protein with salad or low-carb veg/sometimes baked potato/small amount pasta Eating out - [place] grilled chicken/shrimp with lettuce, sour cream, chips and salsa or burger with 1/2 bun or protein with side salad with Ranch and sometimes 1/2 baked potato with skin S - none Fluids - Diet Coke, occasional water. 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 no Work-related activity:Sedentary. Gym Membership: no Activity Tracker: yes Stress: increased with traveling for work during April. May should be more calm. Sleep: varies Duration: 4 hrs once a week - 8 hours. FISH NO ; CPAP NO Estimated Creatinine Clearance: 98.9 mL/min (based on SCr of 0.85 mg/dL). PAST MEDICAL HISTORY Diagnosis Date Migraine without aura, without mention of intractable migraine without mention of status migrainosus 07/22/2005 Prediabetes 2020 Current Outpatient Medications Medication Sig Dispense Refill levonorgestrel (MIRENA) 21 mcg/24 hr (8 yrs) 52 mg IUD 1 Each by INTRAUTERINE route as directed. 1 Each 0 metFORMIN ER (GLUCOPHAGE XR) 500 mg 24 hr tablet Take 2 tablets by mouth daily with dinner. 180 tablet 1 No current facility-administered medications for this visit. 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 Last 14 BP Last 14 Encounter BP Readings: Date: BP: 05/23/2024 122/74 04/24/2024 106/76 04/03/2024 114/62 03/15/2024 108/64 02/15/2024 112/72 01/16/2024 104/68 12/04/2022 122/70 10/04/2017 110/64 11/14/2016 116/62 07/26/2016 110/68 11/05/2010 80/40 09/04/2010 84/60 07/29/2008 110/70 09/13/2007 104/56 Physical Exam Constitutional: She appears healthy. No distress. Results: recent labs reviewed with the patient. Latest Ref Rng AND Units 02/12/2024 CMP Sodium 136 - 144 mmol/L 140 Potassium 3.7 - 5.1 mmol/L 3.9 Chloride 98 - 107 (more content not included)... [facility] 04-24-2024 Instructions Sirisha Patel LPN - 04/24/2024 3:32 PM EDT POST IUD INSTRUCTIONS You may have irregular bleeding during the first 3 months of use. You may have mild-severe cramping for the next 48 hours. You may use over the counter medication (Motrin, Tylenol) as needed. Your IUD must be removed or replaced based on the following table: IUD Type Removed or replaced within: Shantelle 3 years Kyleena 5 years Mirena 8 years Liletta 8 years Paragard 10 years Call the office for signs/symptoms of infection such as severe cramping, fever, or unusual bleeding. Check for string placement as instructed by your doctor. If you have any additional questions, please contact the office. documented in this encounter [facility] 04-24-2024 Note HNO ID: [id number] Author: MARTY PATTERSON APRN.BEER MAKER Service: ? Author Type: Nurse Practitioner Type: Progress Notes Filed: 04/24/2024 16:41 Note Text: Linen Room Supervisor offered: Patient declines. Melanie presents today for IUD insertion for contraception. No LMP recorded. (Menstrual status: Drug Induced Amenorrhea). GC/chlamydia: Negative on 03/15/24 test: negative Side effects including irregular bleeding were discussed with the patient. The patient understands that it should be removed in 8 years or sooner if the patient desires a . IUD source: office provided [facility]: [id number] IUD lot: [id number] Exp date: 03/2026 UNIVERSAL PROTOCOL / SAFETY CHECKLIST Procedure to be Performed: Mirena Insertion Sign In: A Moment of CARE was completed. Personnel directly involved with the procedure wore the appropriate PPE (Personal Protective Equipment). Patient/Surrogate Stated/Verified: PATIENT VERIFIED(optional for EMERGENT procedures): Patient name, Date of , Relevant allergies, and The intended procedure Time Out Communication: Intended patient and procedure match the source documents. Consent documented and matches the intended procedure. Sign Out: SIGN OUT (optional for EMERGENT procedures): No specimen collected. All instruments, equipment, possible retained foreign bodies accounted for. Post-procedure follow-up management communicated and Plan of Care Visit completed when applicable. The cervix was prepped with betadine. The uterus sounded to 9 cm and the uterus is Anteverted. Using sterile technique, the first Mirena IUD was inserted and immediately expelled. A second Mirena IUD was inserted without difficulty and the string was cut to 3 cm from the external os of the cervix. Patient tolerated procedure well. PLAN: Patient was advised to observe for signs and symptoms of infection including but not limited to fever, malodorous vaginal discharge and/or pain. The patient was told to check the string monthly for accurate placement. Bleeding expectations were reviewed. Follow up in one month. Marty Patterson APRN.CNP [facility] 04-24-2024 History of Present illness Narrative Linen Room Supervisor offered: Patient declines. Melanie presents today for IUD insertion for contraception. No LMP recorded. (Menstrual status: Drug Induced Amenorrhea). GC/chlamydia: Negative on 03/15/24 test: negative Side effects including irregular bleeding were discussed with the patient. The patient understands that it should be removed in 8 years or sooner if the patient desires a . IUD source: office provided [facility]: [id number] IUD lot: [id number] Exp date: 03/2026 UNIVERSAL PROTOCOL / SAFETY CHECKLIST Procedure to be Performed: Mirena Insertion Sign In: A Moment of CARE was completed. Personnel directly involved with the procedure wore the appropriate PPE (Personal Protective Equipment). Patient/Surrogate Stated/Verified: PATIENT VERIFIED(optional for EMERGENT procedures): Patient name, Date of , Relevant allergies, and The intended procedure Time Out Communication: Intended patient and procedure match the source documents. Consent documented and matches the intended procedure. Sign Out: SIGN OUT (optional for EMERGENT procedures): No specimen collected. All instruments, equipment, possible retained foreign bodies accounted for. Post-procedure follow-up management communicated and Plan of Care Visit completed when applicable. The cervix was prepped with betadine. The uterus sounded to 9 cm and the uterus is Anteverted. Using sterile technique, the first Mirena IUD was inserted and immediately expelled. A second Mirena IUD was inserted without difficulty and the string was cut to 3 cm from the external os of the cervix. Patient tolerated procedure well. PLAN: Patient was advised to observe for signs and symptoms of infection including but not limited to fever, malodorous vaginal discharge and/or pain. The patient was told to check the string monthly for accurate placement. Bleeding expectations were reviewed. Follow up in one month. Matry Patterson APRN.CNP documented in this encounter [facility] 04-24-2024 Note IMPRESSION: INCOMPLE TE: NEED ADDITIONAL IMAGING EVALUATION The oval asymmetry in the left breast is indeterminate. An ultrasound is recommended. Huseyin corona/juan:04/24/2024 15:17:51 Gear Design Engineer(s): RT Clint(R)(M), [facility] Mammogram BI-RADS: Category 0: Incomplete: Need Additional Imaging Evaluation Multiple national specialty organizations have released breast cancer screening guidelines for women at average risk for developing breast cancer - guidelines that are based on both evidence and opinion, yet differ on when to start and how often to screen for breast cancer. With representation from Breast Imaging, Internal Medicine, Women's Health, Family Medicine, and Medical/Surgical Oncology, the [facility] has carefully reviewed the data and reached the following consensus: 1) All women should engage in shared decision-making with their providers to decide when to start and how often to screen; 2) All women should have the opportunity to start screening mammography at age 40; 3) For women ages 45-55, we recommend annual screening mammograms; 4) For women ages 55 and over, we support both the transition from an annual to a biennial interval if this aligns more with patient's values and preferences, or continuation with annual screening; 5) All women should discuss with their providers when to stop screening mammograms. Civil Cad Designer: Juan Transcribe Date/Time: Apr 24 2024 2:31P Dictated by: HUSEYIN RIZO MD This examination was interpreted and the report reviewed and electronically signed by: HUSEYIN RIZO MD on Apr 24 2024 3:17PM [facility] OF RADIOLOGY 04-24-2024 History of Present illness Narrative Radiology Service Progress Note PATIENT NAME: Melanie Levy DATE OF SERVICE: April 24, 2024 TIME: 4:27 PM PATIENT IDENTITY VERIFICATION COMPLETED USING TWO (2) IDENTIFIERS: Name and Date of confirmed by patient verbally. FALL SCREENING: Has the patient had 2 falls in the last year or 1 fall with injury or currently using an Ambulatory Assistive Device (Walker, Cane, Wheelchair, Crutches, etc.)? No PATIENT GENDER DATA: Female. status: : No status: NO. PATIENT RELEVANT IMPLANT DATA REVIEWED: Not Applicable PATIENT PRESENTS WITH AN IMPLANTABLE OR ATTACHED ALODIZE MACHINE OPERATOR: No RADIOLOGY DEPARTMENT: Ultrasound PERIPHERAL IV DATA: Not applicable SIGNED BY: Devi Solis RDMS Berkley April 24, 2024 4:27 PM documented in this encounter [facility] 04-24-2024 Note HNO ID: [id number] Author: DEVI SOLIS RDMS Service: ? Author Type: Timber Harvester Operator Type: Progress Notes Filed: 04/24/2024 16:27 Note Text: Radiology Service Progress Note PATIENT NAME: Melanie Levy DATE OF SERVICE: April 24, 2024 TIME: 4:27 PM PATIENT IDENTITY VERIFICATION COMPLETED USING TWO (2) IDENTIFIERS: Name and Date of confirmed by patient verbally. FALL SCREENING: Has the patient had 2 falls in the last year or 1 fall with injury or currently using an Ambulatory Assistive Device (Walker, Cane, Wheelchair, Crutches, etc.)? No PATIENT GENDER DATA: Female. status: : No status: NO. PATIENT RELEVANT IMPLANT DATA REVIEWED: Not Applicable PATIENT PRESENTS WITH AN IMPLANTABLE OR ATTACHED ALODIZE MACHINE OPERATOR: No RADIOLOGY DEPARTMENT: Ultrasound PERIPHERAL IV DATA: Not applicable SIGNED BY: Devi Solis RDMS RVT April 24, 2024 4:27 PM [facility] 04-24-2024 History of Present illness Narrative Radiology Service Progress Note PATIENT NAME: Melanie Levy DATE OF SERVICE: April 24, 2024 TIME: 3:00 PM PATIENT IDENTITY VERIFICATION COMPLETED USING TWO (2) IDENTIFIERS: Name and Date of confirmed by patient verbally. FALL SCREENING: Has the patient had 2 falls in the last year or 1 fall with injury or currently using an Ambulatory Assistive Device (Walker, Cane, Wheelchair, Crutches, etc.)? No PATIENT GENDER DATA: Female. status: : No status: NO. PATIENT RELEVANT IMPLANT DATA REVIEWED: Not Applicable PATIENT PRESENTS WITH AN IMPLANTABLE OR ATTACHED ALODIZE MACHINE OPERATOR: No RADIOLOGY DEPARTMENT: Mammography PERIPHERAL IV DATA: Not applicable SIGNED BY: Samantha Jaramillo April 24, 2024 3:00 PM documented in this encounter [facility] 04-24-2024 Note HNO ID: [id number] Author: MAGGY SNIDER Mammo Tech Service: ? Author Type: Technologist Type: Progress Notes Filed: 04/24/2024 15:01 Note Text: Radiology Service Progress Note PATIENT NAME: Melanie Levy DATE OF SERVICE: April 24, 2024 TIME: 3:00 PM PATIENT IDENTITY VERIFICATION COMPLETED USING TWO (2) IDENTIFIERS: Name and Date of confirmed by patient verbally. FALL SCREENING: Has the patient had 2 falls in the last year or 1 fall with injury or currently using an Ambulatory Assistive Device (Walker, Cane, Wheelchair, Crutches, etc.)? No PATIENT GENDER DATA: Female. status: : No status: NO. PATIENT RELEVANT IMPLANT DATA REVIEWED: Not Applicable PATIENT PRESENTS WITH AN IMPLANTABLE OR ATTACHED ALODIZE MACHINE OPERATOR: No RADIOLOGY DEPARTMENT: Mammography PERIPHERAL IV DATA: Not applicable SIGNED BY: Samantha Jaramillo April 24, 2024 3:00 PM [facility] 04-03-2024 Instructions Sara Bergeron APRN.CNP - 04/03/2024 3:32 PM EDT Increase metformin to 2 a day documented in this encounter [facility] 04-03-2024 History of Present illness Narrative Images from the original note were not included. Some documentation from previous visit of 02/15/2024 was copied and pasted, documentation has been reviewed and edited as necessary for today's visit. Patient Summary: Melanie is a 43 year old Female who presents for follow-up evaluation of obesity/weight management to treat and prevent related co-morbidities. In our previous visits we have discussed lifestyle intervention including a nutrition recommendations and physical activity optimization. Her last office visit was 2 month ago. Assessment/plan from last visit: Metformin ER 500 mg tablet Interval History PT specifies the following items as new or significant updates since the last appointment: Work crazy, increased activity Started journaling food, focusing on sleep Weight loss since last vist: 2 lb Date: Weight: BMI: Medications: 04/03/2024 229 lb 39.31 metformin ER 1 gm 02/15/2024 231 lb 39.44 metformin ER 500 mg 01/16/2024 228 lb 38.93 Waist Circumference: 42 in 5% weight loss = 189 lbs, 10% weight loss = 179 lbs Anti-obesity medications: metformin Benefit:less hunger Adverse effects: 2 vivid dreams Weight promoting medications: none Previous Diet (initial appointment): Low carb during the work week. WE - up late morning. Lunch first meal but same. Awake - 0515 0600 Diet Coke B - 8-9 am meat and cheese snacks or jerky or occasionally PB crackers S - none L - 1200 meat and cheese with raw veg or salad with meat/Ranch dressing S - no D - 6-8 pm Salad with meat or grilled chicken and broccoli or pizza rolls or chicken nuggets if nothing prepared or easy to prepare Eats out on WE - N[place], pizza, Citizen [place] S - occasional 8-10 pm chips/dip or popcorn Fluids - Diet Coke, occasional water. Alcohol one WE night - whiskey or coconut rum or cider beer Bedtime - Quality of diet: 24hr recall suggests somewhat healthy diet. Characterization of diet:Structured, excessive cravings, and evening snacking. 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 Alcohol 0-1 WE night - whiskey or coconut rum or cider beer Current Barriers: schedule Exercise: stable activity at home and work Exercise: Has gym at home - 2-3 days a week 15-30 minutes Regular exercise: no Strength/resistance exercise:yes Barriers to regular exercise? no Work-related activity:Sedentary. Gym Membership: no Activity Tracker: yes Stress: increased with long days at work Sleep: stable Duration: 7 hours, does not want to get up. FISH NO ; CPAP NO Estimated Creatinine Clearance: 99.2 mL/min (based on SCr of 0.85 mg/dL). PAST MEDICAL HISTORY 07/22/2005: Migraine without aura, without mention of intractable migraine without mention of status migrainosus 2020: Prediabetes Current Outpatient Medications Medication Sig Dispense Refill miSOPROStol (CYTOTEC) 200 mcg tablet Insert 2 tablets vaginally night prior to IUD and 2 tablets morning of procedure. Each dose should be in vagina for 6-8 hours. 4 tablet 0 medroxyPROGESTERone (DEPO-PROVERA) 150 mg/mL injection Inject 150 mg intramuscularly every 12 weeks. metFORMIN ER (GLUCOPHAGE XR) 500 mg 24 hr tablet Take 1 tablet by mouth daily with dinner. 90 tablet 0 No current facility-administered medications for this visit. 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 BP 114/62 Pulse 64 Wt 103.9 kg (229 lb) SpO2 99% BMI 39.31 kg/m Physical Exam Constitutional: She appears healthy. No distress. Results: recent labs reviewed with the patient. Latest Ref Rng & Units 02/12/2024 CMP Sodium 136 - 144 mmol/L 140 Potassium 3.7 - 5.1 mmol/L 3.9 Chloride 98 - 107 mmol/L 110 CO2 22 - 30 mmol/L 19 Glucose 74 - 99 mg/dL 109 BUN 7 - 21 mg/dL 22 Creatinine 0.58 - 0.96 mg/dL 0.85 EGFR >=60 mL/min/1.73m 87 Protein, Total 6.3 - 8.0 g/dL 6.3 Albumin 3.9 - 4.9 g/dL 4.1 Calcium 8.5 - 10.2 mg/dL 8.9 Bilirubin, Total 0.2 - 1.3 mg/dL 0.4 AST 13 - 35 U/L 10 ALT 7 - 38 U/L 10 Alkaline Phosphatase 34 - 123 U/L 46 Cholesterol, Total (mg/dL) Date Value 02/12/2024 151 HDL Cholesterol (mg/dL) Date Value 02/12/2024 51 LDL Cholesterol (mg/dL) Date Value 02/12/2024 88 Triglyceride (mg/dL) Date Value 02/12/2024 60 Latest Ref Rng & Units 02/12/2024 CBC WBC 3.70 - 11.00 k/uL 7.55 RBC 3.90 - 5.20 m/uL 4.28 Hemoglobin 11.5 - 15.5 g/dL 13.3 Hematocrit 36.0 - 46.0 % 38.4 MCV 80.0 - 100.0 fL 89.7 MCH 26.0 - 34.0 pg 31.1 MCHC 30.5 - 36.0 g/dL 34.6 RDW-CV 11.5 - 15.0 % 12.5 Platelet Count 150 - 400 k/uL 239 MPV 9.0 - 12.7 fL 10.3 Vitamin D 25 Hydroxy Date Value Ref Range Status 02/12/2024 48.2 31.0 - 80.0 ng/mL Final Comment: Classification of 25 OH Vitamin D status: Deficiency/Insufficiency: < or = 30 ng/ml. Sufficiency/Optimal Levels: 31-80 ng/mL Toxicity: > 100 ng/mL. Test performed by chemiluminescent immunoassay. TSH (mIU/L) Date Value 02/12/2024 2.170 Hemoglobin A1C (%) Date Value 02/12/2024 5.3 Insulin Date Value Ref Range Status 02/12/2024 10.7 3.0 - 25.0 mU/L Final Anti-Obesity Medications >Phentermine: No uncontrolled HTN, No CVD Hx or hx of seizure disorder. No MAOI inhibitor use. No drug abuse hx. Crcl > 15. >Topiramate/zonisamide: No seizure, kidney stone or glaucoma hx. Has hx of migraines, and hx of poor sleep. Is of Child bearing age - Depo. >Qsymia: see above >Contrave: No uncontrolled HTN or hx of seizure disorder. No MAOI inhibitor use. No opiate use. >Saxenda/Wegovy/Ozempic: Cost. Ins coverage? >Metformin: eGFR > 30. No contraindications or medication interactions. Assessment/Plan: Melanie Levy is a 43 year old yo with Class II obesity who presented today for follow up for supervised weight loss to treat and prevent related co-morbidities. 1. Prediabetes - ICD9: 790.29, ICD10: R73.03 (primary diagnosis) - METFORMIN ER 500 MG TABLET,EXTENDED RELEASE 24 HR - Whole food balanced protein low-carb nutrition 2. Intractable migraine without aura and without status migrainosus - ICD9: 346.11, ICD10: G43.019 - currently rare occurrences 3. Class 2 obesity with body mass index (BMI) of 38.0 to 38.9 in adult, unspecified obesity type, unspecified whether serious comorbidity present - ICD9: 278.00, V85.38, ICD10: E66.9, Z68.38 Weight increasing - METFORMIN ER 500 MG TABLET,EXTENDED RELEASE 24 HR increase to twice a day -- We discussed several strategies to track food intake and increase mindfulness around eating while will decrease calorie intake. She was counseled on the following: - Continue whole food low-carb diet with 30 g of protein 3 times a day and 30 g of carbs at lunch and dinner only. She has previously lost weight on ketogenic diet. Suggestions given specific for her current diet. -- Encouraged the patient to improve her physical activity. Although cardiovascular exercise is most beneficial for weight loss initially, we discussed healthy muscle from a combination of resistance training and cardiovascular exercise is the best intermediate plan. An overall goal of 150-200 minutes per week of exercise has been effective in weight loss and maintenance. -- Reviewed that monitoring weight daily and food intake can have a positive impact on overall weight loss and maintenance of weight loss. Activity tracking can be used to stay on target for exercise however should not be used to reward oneself She understands that there can be limitations of pharmacotherapy due to contraindications, side effects and cost. Patient was told to contact her insurance company to see what AOMs and supervised behavioral medical appointments are currently covered. Patient understands she will have more success when following a healthy lifestyle. We reviewed continued use of online tracking of daily weights, food journal and if desired physical activity. We reviewed that during management she is to report any concerning side effects of any pharmacotherapy she is placed on. She understands that she will need routine follow up in the office. Prior to any virtual visits in the future she will need to check her Blood pressure, weight, and pulse. - An overall goal of 150-200 minutes per week of exercise has been effective in weight loss and maintenance. Prescription instructions reviewed with patient as applicable. Potential red flag symptoms discussed with the patient. Reviewed appropriate action plan to take if red flag symptoms occur. Patient agreeable to treatment plan. Follow up in 6 weeks - plan repeat CMP in June Sara Bergeron CNP Advanced Education from the [employer] Medical Decision Making: Problems: Moderate: 1+ chronic illnesses with change and 2+ stable chronic illnesses Risk: Moderate: Drug management and Moderate risk from testing/treatment Medical Decision Making Level: 4 - Moderate documented in this encounter [facility] 04-03-2024 Note HNO ID: [id number] Author: SARA BERGERON APRN.CNP Service: ? Author Type: Nurse Practitioner Type: Progress Notes Filed: 04/03/2024 18:48 Note Text: Some documentation from previous visit of 02/15/2024 was copied and pasted, documentation has been reviewed and edited as necessary for today's visit. Patient Summary: Melanie is a 43 year old Female who presents for follow-up evaluation of obesity/weight management to treat and prevent related co-morbidities. In our previous visits we have discussed lifestyle intervention including a nutrition recommendations and physical activity optimization. Her last office visit was 2 month ago. Assessment/plan from last visit: Metformin ER 500 mg tablet Interval History PT specifies the following items as new or significant updates since the last appointment: Work crazy, increased activity Started journaling food, focusing on sleep Weight loss since last vist: 2 lb Date: Weight: BMI: Medications: 04/03/2024 229 lb 39.31 metformin ER 1 gm 02/15/2024 231 lb 39.44 metformin ER 500 mg 01/16/2024 228 lb 38.93 Waist Circumference: 42 in 5% weight loss = 189 lbs, 10% weight loss = 179 lbs Anti-obesity medications: metformin Benefit:less hunger Adverse effects: 2 vivid dreams Weight promoting medications: none Previous Diet (initial appointment): Low carb during the work week. WE - up late morning. Lunch first meal but same. Awake - 0515 0600 Diet Coke B - 8-9 am meat and cheese snacks or jerky or occasionally PB crackers S - none L - 1200 meat and cheese with raw veg or salad with meat/Ranch dressing S - no D - 6-8 pm Salad with meat or grilled chicken and broccoli or pizza rolls or chicken nuggets if nothing prepared or easy to prepare Eats out on WE - [place], pizza, Citizen [place] S - occasional 8-10 pm chips/dip or popcorn Fluids - Diet Coke, occasional water. Alcohol one WE night - whiskey or coconut rum or cider beer Bedtime - Quality of diet: 24hr recall suggests somewhat healthy diet. Characterization of diet:Structured, excessive cravings, and evening snacking. 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 Alcohol 0-1 WE night - whiskey or coconut rum or cider beer Current Barriers: schedule Exercise: stable activity at home and work Exercise: Has gym at home - 2-3 days a week 15-30 minutes Regular exercise: no Strength/resistance exercise:yes Barriers to regular exercise? no Work-related activity:Sedentary. Gym Membership: no Activity Tracker: yes Stress: increased with long days at work Sleep: stable Duration: 7 hours, does not want to get up. FISH NO ; CPAP NO Estimated Creatinine Clearance: 99.2 mL/min (based on SCr of 0.85 mg/dL). PAST MEDICAL HISTORY 07/22/2005: Migraine without aura, without mention of intractable migraine without mention of status migrainosus 2020: Prediabetes Current Outpatient Medications Medication Sig Dispense Refill miSOPROStol (CYTOTEC) 200 mcg tablet Insert 2 tablets vaginally night prior to IUD and 2 tablets morning of procedure. Each dose should be in vagina for 6-8 hours. 4 tablet 0 medroxyPROGESTERone (DEPO-PROVERA) 150 mg/mL injection Inject 150 mg intramuscularly every 12 weeks. metFORMIN ER (GLUCOPHAGE XR) 500 mg 24 hr tablet Take 1 tablet by mouth daily with dinner. 90 tablet 0 No current facility-administered medications for this visit. 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 [facility] BP 114/62 Pulse 64 Wt 103.9 kg (229 lb) SpO2 99% BMI 39.31 kg/m? Physical Exam Constitutional: She appears healthy. No distress. Results: recent labs reviewed with the patient. Latest Ref Rng AND Units 02/12/2024 CMP Sodium 136 - 144 mmol/L 140 Potassium 3.7 - 5.1 mmol/L 3.9 Chloride 98 - 107 mmol/L 110 CO2 22 - 30 mmol/L 19 Glucose 74 - 99 mg/dL 109 BUN 7 - 21 mg/dL 22 Creatinine 0.58 - 0.96 mg/dL 0.85 EGFR >=60 mL/min/1.73m? 87 Protein, Total 6.3 - 8.0 g/dL 6.3 Albumin 3.9 - 4.9 g/dL 4.1 Calcium 8.5 - 10.2 mg/dL 8.9 Bilirubin, Total 0.2 - 1.3 mg/dL 0.4 AST 13 - 35 U/L 10 ALT 7 - 38 U/L 10 Alkaline Phosphatase 34 - 123 U/L 46 Cholesterol, Total (mg/dL) Date Value 02/12/2024 151 HDL Cholesterol (mg/dL) Date Value 02/12/2024 51 LDL Cholesterol (mg/dL) Date Value 02/12/2024 8 (more content not included)... 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 Melanie is a 43 year old who presents for an annual gynecologic exam without complaints. Menses: no menses - Depo Provera Contraception: Depo Provera HPV vaccine: No Last Pap: 08/25/2021 - normal per pt HPV: unknown, assume 2014 History of abnormal pap: Yes 10/27/2014 - no colposcopy or procedures Last mammogram: 2021 normal [facility] - first mammogram Sexually active: Yes History of STDS: None Patient concerns for STD exposure: No. Time with current partner: 6 weeks Pain with intercourse: No Postcoital bleeding: No OB History T0 L2 SAB0 IAB0 Ectopic0 Multiple0 Live Births0 Commodity Supervisor History LMP: Drug Induced Amenorrhea Age at Menarche: Age at First : Age at Menopause: Commodity Supervisor History Comments: Sexual Activity: Yes; Male Contraception: Injection PAST MEDICAL HISTORY Diagnosis Date Migraine without aura, without mention of intractable migraine without mention of status migrainosus 07/22/2005 Prediabetes 2020 PAST SURGICAL HISTORY Procedure Laterality Date LAPAROSCOPY SURG CHOLECYSTECTOMY 1998 Cholecystectomy, lap FAMILY HISTORY Problem Relation Age of Onset Obesity Mother other (dysplastic nerves [Other]) Father and one sister Obesity Father Obesity Sister Hypertension Sister Migraines Sister Obesity Sister COPD Maternal Grandmother Heart disease Maternal Grandmother Obesity Maternal Grandmother Diabetes Paternal Grandmother Obesity Paternal Grandmother Obesity Paternal Grandfather SOCIAL HISTORY Social History Tobacco Use Smoking status: Every Day Packs/day: .5 Types: Cigarettes Last attempt to quit: 10/16/2016 Years since quittin.4 Smokeless tobacco: Never Tobacco comments: one pack a week/ about 8 per day. Vaping Use Vaping Use: Never used Substance Use Topics Alcohol use: Yes Comment: occasionally on weekends Drug use: No REVIEW OF SYSTEMS Abdomen: No abdominal pain, nausea, vomiting, diarrhea, or constipation. No bloating, early satiety, indigestion, or increased flatulence. Bladder: No dysuria, gross hematuria, urinary frequency, urinary urgency, or incontinence. Breast: small raised area to inner right breast for past couple months. No breast lumps, nipple d/c, overlying skin changes, redness or skin retraction. Allergies and current medication updated:Yes EXAM: BP 108/64 Ht 5' 4 (1.63m) Wt 230 lb (104.3kg) BMI 39.46 kg/(m^2). GENERAL: pleasant, female in no apparent distress HEENT: Normocephalic, atraumatic, mucus membranes moist, and no lesions NECK: Supple, full range of motion, no adenopathy, and thyroid normal DERMATOLOGY: Normal, without lesions, non-icteric, and non-hirsute BREAST: soft, non-tender, symmetric, normal nipple-areolar complex, no lymphadenopathy, no nipple discharge, and dominant mass sub-cm superficial mass inner upper left breast. CHEST: Normal inspiratory effort ABDOMEN: soft, non-tender, and no masses PELVIC: external genitalia normal, normal Bartholin's glands, urethra, Eugene's glands, no vulvar lesions, no cervical lesions, good vaginal support, physiologic discharge present, normal appearing perineal body and perianal region BIMANUAL: uterus normal size, shape and consistency, no adnexal masses, and non-tender RECTOVAGINAL: deferred. NEURO: alert and oriented x3,exam grossly non-focal EXTREMITIES: normal ASSESSMENT/PLAN: 1) Health maintenance: Pap done with HPV. - smoking cessation encouraged 2. Mass of upper inner quadrant of left breast - ICD9: 611.72, ICD10: N63.22 - US BREAST LTD LEFT - MICHAEL DIAGNOSTIC BILATERAL 3. General counseling and advice for contraceptive management - ICD9: V25.09, ICD10: Z30.09 - Last dose Depo Provera 01/2024 - INSERT INTRAUTERINE DEVICE - Mirena IUD - MISOPROSTOL 200 MCG TABLET 4. Screen for STD (sexually transmitted disease) - ICD9: V74.5, ICD10: Z11.3 - GONORRHEA/CHLAMYDIA NAAT 5) Follow up for IUD insertion and one year for annual or sooner as needed Sara Bergeron APRN.[employer] documented in this encounter [facility] 03-15-2024 Note HNO ID: [id number] Author: SARA BERGERON APRN.IBIS Service: ? Author Type: Nurse Practitioner Type: Progress Notes Filed: 03/15/2024 15:23 Note Text: Linen Room Supervisor offered: Patient declines. Melanie is a 43 year old who presents for an annual gynecologic exam without complaints. Menses: no menses - Depo Provera Contraception: Depo Provera HPV vaccine: No Last Pap: 08/25/2021 - normal per pt HPV: unknown, assume 2014 History of abnormal pap: Yes 10/27/2014 - no colposcopy or procedures Last mammogram: 2021 normal [facility] - first mammogram Sexually active: Yes History of STDS: None Patient concerns for STD exposure: No. Time with current partner: 6 weeks Pain with intercourse: No Postcoital bleeding: No OB History T0 L2 SAB0 IAB0 Ectopic0 Multiple0 Live Births0 Commodity Supervisor History LMP: Drug Induced Amenorrhea Age at Menarche: Age at First : Age at Menopause: Commodity Supervisor History Comments: Sexual Activity: Yes; Male Contraception: Injection PAST MEDICAL HISTORY Diagnosis Date Migraine without aura, without mention of intractable migraine without mention of status migrainosus 07/22/2005 Prediabetes 2020 PAST SURGICAL HISTORY Procedure Laterality Date LAPAROSCOPY SURG CHOLECYSTECTOMY 1998 Cholecystectomy, lap FAMILY HISTORY Problem Relation Age of Onset Obesity Mother other (dysplastic nerves [Other]) Father and one sister Obesity Father Obesity Sister Hypertension Sister Migraines Sister Obesity Sister COPD Maternal Grandmother Heart disease Maternal Grandmother Obesity Maternal Grandmother Diabetes Paternal Grandmother Obesity Paternal Grandmother Obesity Paternal Grandfather SOCIAL HISTORY Social History Tobacco Use Smoking status: Every Day Packs/day: .5 Types: Cigarettes Last attempt to quit: 10/16/2016 Years since quittin.4 Smokeless tobacco: Never Tobacco comments: one pack a week/ about 8 per day. Vaping Use Vaping Use: Never used Substance Use Topics Alcohol use: Yes Comment: occasionally on weekends Drug use: No REVIEW OF SYSTEMS Abdomen: No abdominal pain, nausea, vomiting, diarrhea, or constipation. No bloating, early satiety, indigestion, or increased flatulence. Bladder: No dysuria, gross hematuria, urinary frequency, urinary urgency, or incontinence. Breast: small raised area to inner right breast for past couple months. No breast lumps, nipple d/c, overlying skin changes, redness or skin retraction. Allergies and current medication updated:Yes EXAM: BP 108/64 Ht 5' 4 (1.63m) Wt 230 lb (104.3kg) BMI 39.46 kg/(m2). GENERAL: pleasant, female in no apparent distress HEENT: Normocephalic, atraumatic, mucus membranes moist, and no lesions NECK: Supple, full range of motion, no adenopathy, and thyroid normal DERMATOLOGY: Normal, without lesions, non-icteric, and non-hirsute BREAST: soft, non-tender, symmetric, normal nipple-areolar complex, no lymphadenopathy, no nipple discharge, and dominant mass sub-cm superficial mass inner upper left breast. CHEST: Normal inspiratory effort ABDOMEN: soft, non-tender, and no masses PELVIC: external genitalia normal, normal Bartholin's glands, urethra, Eugene's glands, no vulvar lesions, no cervical lesions, good vaginal support, physiologic discharge present, normal appearing perineal body and perianal region BIMANUAL: uterus normal size, shape and consistency, no adnexal masses, and non-tender RECTOVAGINAL: deferred. NEURO: alert and oriented x3,exam grossly non-focal EXTREMITIES: normal ASSESSMENT/PLAN: 1) Health maintenance: Pap done with HPV. - smoking cessation encouraged 2. Mass of upper inner quadrant of left breast - ICD9: 611.72, ICD10: N63.22 - US BREAST LTD LEFT - MICHAEL DIAGNOSTIC BILATERAL 3. General counseling and advice for contraceptive management - ICD9: V25.09, ICD10: Z30.09 - Last dose Depo Provera 01/2024 - INSERT INTRAUTERINE DEVICE - Mirena IUD - MISOPROSTOL 200 MCG TABLET 4. Screen for STD (sexually transmitted disease) - ICD9: V74.5, ICD10: Z11.3 - GONORRHEA/CHLAMYDIA NAAT 5) Follow up for IUD insertion and one year for annual or sooner as needed Sara Bergeron APRN.[facility] 02-15-2024 Instructions Sara Bergeron APRN.[facility] - 02/15/2024 2:40 PM EDT - Whole food low-carb diet with 30 g of protein 3 times a day and up to 30 g of carbs at lunch and dinner only. Meals - protein is a goal and carbohydrates are a limit Snacks - all protein or more protein than carbs Use tracking log as a worksheet and bring with you to your next appointment. METFORMIN Dosing -- Begin Metformin 500 ER mg with dinner daily x 1 week. Taking the medication with food will help. -- if you experience any GI upset (Nausea, diarrhea, bloating, gas) you can go back to 1 tablet or hold the medication until it resolves. Once you are tolerating the medication you can try increasing it again. -- we can discuss increasing the dose further at your follow up visit. -- Metformin can interfere with the absorption of B12 in your food, please add a B12 1,000-2,400 mcg supplement and I suggest having it checked every 1-2 years Using Metformin for weight loss: Metformin helps to lower blood glucose levels by reducing the amount of glucose produced and released by the liver, and by increasing insulin sensitivity. It has now been proven to prevent or delay diabetes. Metformin and Type 2 Diabetes Prevention Diabetes Spectrum (diabetesjournals.org) Large cohort studies have shown weight loss benefits associated with metformin therapy. Emerging evidence suggests that metformin-associated weight loss is due to modulation of hypothalamic appetite-regulatory centers, alteration in the gut microbiome, and reversal of consequences of aging. Metformin is also being explored in the management of obesity s sequelae such as hepatic steatosis, obstructive sleep apnea and osteoarthritis. Effectiveness of metformin on weight loss in non-diabetic individuals with obesity - PubMed (nih.gov) Is metformin a wonder drug? - [facility] Common side effects of this medication include nausea, changes in bowel habits, abdominal discomfort, and flatulence. Taking the medication with food will help. Side effects also typically get better with time. Rarely, a severe side effect called lactic acidosis can occur. If you experience malaise, muscle aches, difficulty breathing, or severe abdominal pain, please seek immediate medical attention. When to Take Extended-Release Metformin Metformin HCL is metabolized slowly, over 24 hours, which helps reduce GI side effects. Metformin extended-release is often a good option for people who experience adverse GI symptoms with standard metformin. Metformin HCL should be taken at night, with food. Trena Dallas MD, clinical director of adult diabetes at [facility], explains why timing metformin HCL with the evening meal is so important. In normal physiology, a person's liver often makes glucose overnight, she says. So, it's not uncommon for a person to go to bed with a good blood glucose level and wake up with a higher one because their liver has been releasing sugar [all night]. Metformin turns off or slows down this process, so it can be more effective at night in treating fasting high blood sugar. [email or web address]/ Metformin: Patient drug information Warning Rarely, metformin may cause too much lactic acid in the blood (lactic acidosis). The risk is higher in people who have kidney problems, liver problems, heart failure, use alcohol, or take other drugs like topiramate. The risk is also higher in people who are 65 or older and in people who are having surgery, an exam or test with contrast, or other procedures. If lactic acidosis happens, it can lead to other health problems and can be deadly. Kidney tests may be done while taking this drug. Do not take this drug if you have a very bad infection, low oxygen, or a lot of fluid loss (dehydration). Call your doctor right away if you have signs of too much lactic acid in the blood (lactic acidosis) like fast breathing, fast or slow heartbeat, a heartbeat that does not feel normal, very bad upset stomach or throwing up, feeling very sleepy, shortness of breath, feeling very tired or weak, very bad dizziness, feeling cold, or muscle pain or cramps. What is this drug used for? It is used to lower blood sugar in patients with high blood sugar (diabetes), treatment for PCOS, What do I need to tell my doctor BEFORE I take this drug? If you are allergic to this drug; any part of this drug; or any other drugs, foods, or substances. Tell your doctor about the allergy and what signs you had. If you have any of these health problems: Acidic blood problem, kidney disease, or liver disease. If you have had a recent heart attack or stroke. If you are not able to eat or drink like normal, including before certain procedures or surgery. If you are having an exam or test with contrast or have had one within the past 48 hours, talk with your doctor. This is not a list of all drugs or health problems that interact with this drug. Tell your doctor and pharmacist about all of your drugs (prescription or OTC, natural products, vitamins) and health problems. You must check to make sure that it is safe for you to take this drug with all of your drugs and health problems. Do not start, stop, or change the dose of any drug without checking with your doctor. What are some things I need to know or do while I take this drug? All products: Tell all of your health care providers that you take this drug. This includes your doctors, nurses, pharmacists, and dentists. Talk with your doctor before you drink alcohol. Do not drive if your blood sugar has been low. There is a greater chance of you having a crash. Check your blood sugar as you have been told by your doctor. Have blood work checked as you have been told by the doctor. Talk with the doctor. It may be harder to control blood sugar during times of stress such as fever, infection, injury, or surgery. A change in physical activity, exercise, or diet may also affect blood sugar. Follow the diet and workout plan that your doctor told you about. If diarrhea happens or you are throwing up, call your doctor. You will need to drink more fluids to keep from losing too much fluid. Be careful in hot weather or while being active. Drink lots of fluids to stop fluid loss. Long-term treatment with metformin may lead to low vitamin B-12 levels. If you have ever had low vitamin B-12 levels, talk with your doctor. If you are 65 or older, use this drug with care. You could have more side effects. There is a chance of in people of childbearing age who have not been ovulating. If you want to avoid , use control while taking this drug. Tell your doctor if you are , plan on getting , or are breast-feeding. You will need to talk about the benefits and risks to you and the baby. Extended-release tablets: You may see something that looks like the tablet in your stool. This is normal and not a cause for concern. If you have questions, talk with your doctor. What are some side effects that I need to call my doctor about right away? WARNING/CAUTION: Even though it may be rare, some people may have very bad and sometimes deadly side effects when taking a drug. Tell your doctor or get medical help right away if you have any of the following signs or symptoms that may be related to a very bad side effect: Signs of an allergic reaction, like rash; hives; itching; red, swollen, blistered, or peeling skin with or without fever; wheezing; tightness in the chest or throat; trouble breathing, swallowing, or talking; unusual hoarseness; or swelling of the mouth, face, lips, tongue, or throat. It is common to have stomach problems like upset stomach, throwing up, or diarrhea when you start taking this drug. If you have stomach problems later during treatment, call your doctor right away. This may be a sign of an acid health problem in the blood (lactic acidosis). Low blood sugar can happen. The chance may be raised when this drug is used with other drugs for diabetes. Signs may be dizziness, headache, feeling sleepy or weak, shaking, fast heartbeat, confusion, hunger, or sweating. Call your doctor right away if you have any of these signs. Follow what you have been told to do for low blood sugar. This may include taking glucose tablets, liquid glucose, or some fruit juices. What are some other side effects of this drug? All drugs may cause side effects. However, many people have no side effects or only have minor side effects. Call your doctor or get medical help if any of these side effects or any other side effects bother you or do not go away: Stomach pain or heartburn. Gas. Diarrhea, upset stomach, or throwing up. Feeling tired or weak. Headache. These are not all of the side effects that may occur. If you have questions about side effects, call your doctor. Call your doctor for medical advice about side effects. You may report side effects to your national health agency. How is this drug best taken? Use this drug as ordered by your doctor. Read all information given to you. Follow all instructions closely. All products: Take with meals. Keep taking this drug as you have been told by your doctor or other health care provider, even if you feel well. Extended-release tablets: Take with the evening meal if taking once daily. Swallow whole. Do not chew, break, or crush. If you have trouble swallowing, talk with your doctor. How alcohol affects your weight loss 1. Alcohol is often empty calories Alcoholic drinks are often referred to as empty calories. This means that they provide your body with calories but contain very little nutrients. There are almost 155 calories in one 12-ounce can of beer, and 125 calories in a 5-ounce glass of red wine. By comparison, a recommended afternoon snack should have between 150 and 200 calories. A night out with several drinks can lead to consuming a few hundred extra calories. Drinks that have mixers, such as fruit juice or soda, contain even more calories. 2. Alcohol is used as a primary source of fuel There are also other elements that can cause weight gain outside of calorie content. When alcohol is consumed, it s burned first as a fuel source before your body uses anything else. This includes glucose from carbohydrates or lipids from fats. When your body is using alcohol as a primary source of energy, the excess glucose and lipids end up, unfortunately for us, as adipose tissue, or fat. 3. Alcohol can affect your organs The primary role of your liver is to act as the filter for any foreign substances that enter your body, such as drugs and alcohol. The liver also plays a role in the metabolism of fats, carbohydrates, and proteins. Excess alcohol consumption can lead to what is known as alcoholic fatty liver. This condition can damage your liver, affecting the way your body metabolizes and stores carbohydrates and fats. Changes in the way your body stores energy from food can make it very difficult to lose weight. 4. Alcohol can contribute to excess belly fat The beer gut isn t just a myth. Foods high in simple sugars, such as those found in candy, soda, and even beer, are also high in calories. Extra calories end up stored as fat in the body. Consuming foods and drinks high in sugar can quickly lead to weight gain. We can t choose where all that extra weight ends up. But the body tends to accumulate fat in the abdominal area. 5. Alcohol affects judgment calls especially with food Even the most -hard diet fan will have a hard time fighting the urge to dig in when intoxicated. Alcohol lowers inhibitions and can lead to poor decision-making in the heat of the moment -- especially when it comes to food choices. However, the effects of alcohol surpass even social drinking etiquette. A recent animal studyTrusted Source found that mice given ethanol over a period of three days demonstrated a significant increase in food intake. This study suggests that alcohol can actually trigger hunger signals in the brain, leading to an increased urge to eat more food. 6. Alcohol and sex hormones It s long been known that alcohol intake can affect levels of hormones in the body, especially testosteroneTrusted Source. Testosterone is a sex hormone that plays a role in many metabolic processes, including muscle formation and fat burning capabilities. One study found that low testosterone levels may predict the prevalence of metabolic syndrome in men. Metabolic syndrome is characterized by: high cholesterol high blood pressure high blood sugar levels high body mass index Plus, lower testosterone levels may affect quality of sleep, especially in older men. 7. Alcohol can negatively affect your sleep A nightcap before bed may sound like a ticket to a good night s rest but you may want to reconsider. ResearchTrusted Source suggests that alcohol can lead to increased periods of wakefulness during sleep cycles. Sleep deprivation, whether from lack of sleep or impaired sleep, can lead to an imbalance in the hormones related to hunger, satiety, and energy storage. 8. Alcohol affects digestion and nutrient uptake Your social anxiety isn t the only thing that alcohol inhibits. Intake of alcoholic beverages can also inhibit proper digestive function. Alcohol can cause stress on the stomach and the intestines. This leads to decreasedTrusted Source digestive secretions and movement of food through the tract. Digestive secretions are an essential element of healthy digestion. They break down food into the basic macro- and micronutrients that are absorbed and used by the body. Alcohol intake of all levels can lead to impaired digestion and absorption of these nutrients. This can greatly affect the metabolism of organs that play a role in weight management. Best alcoholic drinks for weight loss This may all sound as if alcohol is ruining your chances of that beach body. But fear not -- watching your weight doesn t necessarily mean having to cut alcohol entirely out of your diet. Rather than reaching for drinks high in sugar or calories, enjoy some of these 100-calorie options instead: 1. Vodka Calories: 100 calories in 1.5 ounces of distilled 80-proof vodka Alternative cocktail: Choose low-calories mixers such as club soda and avoid overly sugary juices. 2. Whiskey Calories: 100 calories in 1.5 ounces of 86-proof whiskey Alternative cocktail: Ditch the cola and take your whiskey on the rocks for a low-calorie alternative. 3. Gin Calories: 115 calories in 1.5 ounces of 90-proof gin Alternative cocktail: Aim for something simple, such as a martini -- and don t skip the olives, they contain beneficial antioxidants such as vitamin E. 4. Tequila Calories: 100 calories in 1.5 ounces of tequila Alternative cocktail: The best part about tequila is that the customary tequila shot is just salt, tequila, and quinault. 5. Torri Calories: 100 calories in 1.5 ounces of torri Alternative cocktail: This drink is best served as an after-dinner digestif and a good torri should be enjoyed slowly to savor the subtle fruity sweetness. The bottom line While cutting alcohol completely out of your diet isn t necessarily the only way to lose weight, there are many improvements that can be made in your health journey by simply cutting back on the booze. You can enjoy a healthier body, improved sleep, better digestion, and fewer of those excess empty calories. And if you do plan to drink, enjoy a vodka or whiskey on the rocks -- and skip the soda! [email or web address] documented in this encounter [facility] 02-15-2024 History of Present illness Narrative Images from the original note were not included. Some documentation from previous visit of 01/16/2024 was copied and pasted, documentation has been reviewed and edited as necessary for today's visit. Patient Summary: Melanie is a 43 year old Female who presents for follow-up evaluation of obesity/weight management to treat and prevent related co-morbidities. In our previous visits we have discussed lifestyle intervention including a nutrition recommendations and physical activity optimization. Her last office visit was 1 month ago. Assessment/plan from last visit: - Given 15 gram carb whole food and protein suggestion list and snack ideas Interval History PT specifies the following items as new or significant updates since the last appointment: Not much motivation Increased activity Weight loss since last vist: + 3 lb 02/15/2024 231 lb 01/16/2024 228 lb (103.4 kg) BMI 38.93 Waist Circumference: 42 in 5% weight loss = 189 lbs, 10% weight loss = 179 lbs Anti-obesity medications: na. Benefit:na Adverse effects: na Weight promoting medications: none Previous Diet (initial appointment): Low carb during the work week. WE - up late morning. Lunch first meal but same. Awake - 0515 0600 Diet Coke B - 8-9 am meat and cheese snacks or jerky or occasionally PB crackers S - none L - 1200 meat and cheese with raw veg or salad with meat/Ranch dressing S - no D - 6-8 pm Salad with meat or grilled chicken and broccoli or pizza rolls or chicken nuggets if nothing prepared or easy to prepare Eats out on WE - N[place]uan, pizza, Citizen Of [place] S - occasional 8-10 pm chips/dip or popcorn Fluids - Diet Coke, occasional water. Alcohol one WE night - whiskey or coconut rum or cider beer Bedtime - Quality of diet: 24hr recall suggests somewhat healthy diet. Characterization of diet:Structured, excessive cravings, and evening snacking. 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:lack of satiety, mindlessness , and boredom Eating Disorder no Cravings: chips and dip Dietary changes: [id number] B - 30 gm protein shake S - occasionally beef jerky and almonds or cheese L - meat cheese, raw veg with Ranch or WE meat and cheese wrap or taco salad S - beef jerky and almonds or cheese or Quest chocolate cookie D - Taco salad with Quest chips or grilled chicken with rice/broccoli or chicken wings with salad or meat cheese, lettuce in low-carb tortilla Eating out - [place] Salad, chicken parm with pasta and bread or Nauruan grilled chicken quesadilla, sour cream, chips and salsa S - occasional popcorn Fluids - Diet Coke, occasional water. Alcohol one WE night - whiskey or coconut rum or cider beer Current Barriers: lack of motivation, inadequate sleep duration, and reduced physical activity Exercise: increased increased activity at home and work Exercise: Has gym at home - 2-3 days a week 15-30 minutes Regular exercise: no Strength/resistance exercise:yes Barriers to regular exercise? no Work-related activity:Sedentary. Gym Membership: no Activity Tracker: yes Stress: stable Stress:yes , Cause:Work Sleep: stable Duration: 7 hours, does not want to get up. FISH NO ; CPAP NO Estimated Creatinine Clearance: 100 mL/min (based on SCr of 0.85 mg/dL). PAST MEDICAL HISTORY Diagnosis Date Migraine without aura, without mention of intractable migraine without mention of status migrainosus 07/22/2005 Prediabetes 2020 Current Outpatient Medications Medication Sig Dispense Refill medroxyPROGESTERone (DEPO-PROVERA) 150 mg/mL injection Inject 150 mg intramuscularly every 12 weeks. No current facility-administered medications for this visit. 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 [facility] BP 112/72 Pulse (!) 54 Wt 104.8 kg (231 lb) SpO2 94% BMI 39.44 kg/m Physical Exam Constitutional: She appears healthy. No distress. Results: recent labs reviewed with the patient. Latest Ref Rng & Units 02/12/2024 CMP Sodium 136 - 144 mmol/L 140 Potassium 3.7 - 5.1 mmol/L 3.9 Chloride 98 - 107 mmol/L 110 CO2 22 - 30 mmol/L 19 Glucose 74 - 99 mg/dL 109 BUN 7 - 21 mg/dL 22 Creatinine 0.58 - 0.96 mg/dL 0.85 EGFR >=60 mL/min/1.73m 87 Protein, Total 6.3 - 8.0 g/dL 6.3 Albumin 3.9 - 4.9 g/dL 4.1 Calcium 8.5 - 10.2 mg/dL 8.9 Bilirubin, Total 0.2 - 1.3 mg/dL 0.4 AST 13 - 35 U/L 10 ALT 7 - 38 U/L 10 Alkaline Phosphatase 34 - 123 U/L 46 Cholesterol, Total (mg/dL) Date Value 02/12/2024 151 HDL Cholesterol (mg/dL) Date Value 02/12/2024 51 LDL Cholesterol (mg/dL) Date Value 02/12/2024 88 Triglyceride (mg/dL) Date Value 02/12/2024 60 Latest Ref Rng & Units 02/12/2024 CBC WBC 3.70 - 11.00 k/uL 7.55 RBC 3.90 - 5.20 m/uL 4.28 Hemoglobin 11.5 - 15.5 g/dL 13.3 Hematocrit 36.0 - 46.0 % 38.4 MCV 80.0 - 100.0 fL 89.7 MCH 26.0 - 34.0 pg 31.1 MCHC 30.5 - 36.0 g/dL 34.6 RDW-CV 11.5 - 15.0 % 12.5 Platelet Count 150 - 400 k/uL 239 MPV 9.0 - 12.7 fL 10.3 Vitamin D 25 Hydroxy Date Value Ref Range Status 02/12/2024 48.2 31.0 - 80.0 ng/mL Final Comment: Classification of 25 OH Vitamin D status: Deficiency/Insufficiency: < or = 30 ng/ml. Sufficiency/Optimal Levels: 31-80 ng/mL Toxicity: > 100 ng/mL. Test performed by chemiluminescent immunoassay. TSH (mIU/L) Date Value 02/12/2024 2.170 Hemoglobin A1C (%) Date Value 02/12/2024 5.3 Insulin Date Value Ref Range Status 02/12/2024 10.7 3.0 - 25.0 mU/L Final Assessment/Plan: Melanie Levy is a 43 year old yo with Class II obesity who presented today for follow up for supervised weight loss to treat and prevent related co-morbidities. 1. Prediabetes - ICD9: 790.29, ICD10: R73.03 (primary diagnosis) - METFORMIN ER 500 MG TABLET,EXTENDED RELEASE 24 HR - Whole food balanced protein low-carb nutrition 2. Intractable migraine without aura and without status migrainosus - ICD9: 346.11, ICD10: G43.019 3. Class 2 obesity with body mass index (BMI) of 38.0 to 38.9 in adult, unspecified obesity type, unspecified whether serious comorbidity present - ICD9: 278.00, V85.38, ICD10: E66.9, Z68.38 Weight increasing - METFORMIN ER 500 MG TABLET,EXTENDED RELEASE 24 HR Agreeable to begin Metformin 500 mg with dinner daily x 1 week. We discussed common side effects of this medication including nausea, changes in bowel habits, abdominal discomfort, and flatulence. Discussed taking it with food and complication of lactic acidosis and signs/symptoms and medication handout given. Further instructed that if she experiences malaise, muscle aches, difficulty breathing, or severe abdominal pain to seek immediate medical attention. -- We discussed several strategies to track food intake and increase mindfulness around eating while will decrease calorie intake. She was counseled on the following: - Continue whole food low-carb diet with 30 g of protein 3 times a day and 30 g of carbs at lunch and dinner only. She has previously lost weight on ketogenic diet. Suggestions given specific for her current diet. -Discussed and given information on how alcohol affects weight loss -- Encouraged the patient to improve her physical activity. Although cardiovascular exercise is most beneficial for weight loss initially, we discussed healthy muscle from a combination of resistance training and cardiovascular exercise is the best intermediate plan. An overall goal of 150-200 minutes per week of exercise has been effective in weight loss and maintenance. -- Reviewed that monitoring weight daily and food intake can have a positive impact on overall weight loss and maintenance of weight loss. Activity tracking can be used to stay on target for exercise however should not be used to reward oneself She understands that there can be limitations of pharmacotherapy due to contraindications, side effects and cost. Patient was told to contact her insurance company to see what AOMs and supervised behavioral medical appointments are currently covered. Patient understands she will have more success when following a healthy lifestyle. We reviewed continued use of online tracking of daily weights, food journal and if desired physical activity. We reviewed that during management she is to report any concerning side effects of any pharmacotherapy she is placed on. She understands that she will need routine follow up in the office. Prior to any virtual visits in the future she will need to check her Blood pressure, weight, and pulse. - An overall goal of 150-200 minutes per week of exercise has been effective in weight loss and maintenance. Prescription instructions reviewed with patient as applicable. Potential red flag symptoms discussed with the patient. Reviewed appropriate action plan to take if red flag symptoms occur. Patient agreeable to treatment plan. Follow up in 6 weeks Sara Bergeron CNP Advanced Education from the [employer] Medical Decision Making: Problems: Moderate: 2+ stable chronic illnesses and 1+ chronic illnesses with change Risk: Moderate: Drug management and Moderate risk from testing/treatment Medical Decision Making Level: 4 - Moderate documented in this encounter [facility] 02-15-2024 Note HNO ID: [id number] Author: SARA BERGERON APRN.CNP Service: ? Author Type: Nurse Practitioner Type: Progress Notes Filed: 02/15/2024 19:47 Note Text: Some documentation from previous visit of 01/16/2024 was copied and pasted, documentation has been reviewed and edited as necessary for today's visit. Patient Summary: Melanie is a 43 year old Female who presents for follow-up evaluation of obesity/weight management to treat and prevent related co-morbidities. In our previous visits we have discussed lifestyle intervention including a nutrition recommendations and physical activity optimization. Her last office visit was 1 month ago. Assessment/plan from last visit: - Given 15 gram carb whole food and protein suggestion list and snack ideas Interval History PT specifies the following items as new or significant updates since the last appointment: Not much motivation Increased activity Weight loss since last vist: + 3 lb 02/15/2024 231 lb 01/16/2024 228 lb (103.4 kg) BMI 38.93 Waist Circumference: 42 in 5% weight loss = 189 lbs, 10% weight loss = 179 lbs Anti-obesity medications: na. Benefit:na Adverse effects: na Weight promoting medications: none Previous Diet (initial appointment): Low carb during the work week. WE - up late morning. Lunch first meal but same. Awake - 0515 0600 Diet Coke B - 8-9 am meat and cheese snacks or jerky or occasionally PB crackers S - none L - 1200 meat and cheese with raw veg or salad with meat/Ranch dressing S - no D - 6-8 pm Salad with meat or grilled chicken and broccoli or pizza rolls or chicken nuggets if nothing prepared or easy to prepare Eats out on WE - [place], pizza, Citizen [place] S - occasional 8-10 pm chips/dip or popcorn Fluids - Diet Coke, occasional water. Alcohol one WE night - whiskey or coconut rum or cider beer Bedtime - Quality of diet: 24hr recall suggests somewhat healthy diet. Characterization of diet:Structured, excessive cravings, and evening snacking. 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:lack of satiety, mindlessness , and boredom Eating Disorder no Cravings: chips and dip Dietary changes: [id number] B - 30 gm protein shake S - occasionally beef jerky and almonds or cheese L - meat cheese, raw veg with Ranch or WE meat and cheese wrap or taco salad S - beef jerky and almonds or cheese or Quest chocolate cookie D - Taco salad with Quest chips or grilled chicken with rice/broccoli or chicken wings with salad or meat cheese, lettuce in low-carb tortilla Eating out - [place] Salad, chicken parm with pasta and bread or [place]auruan grilled chicken quesadilla, sour cream, chips and salsa S - occasional popcorn Fluids - Diet Coke, occasional water. Alcohol one WE night - whiskey or coconut rum or cider beer Current Barriers: lack of motivation, inadequate sleep duration, and reduced physical activity Exercise: increased increased activity at home and work Exercise: Has gym at home - 2-3 days a week 15-30 minutes Regular exercise: no Strength/resistance exercise:yes Barriers to regular exercise? no Work-related activity:Sedentary. Gym Membership: no Activity Tracker: yes Stress: stable Stress:yes , Cause:Work Sleep: stable Duration: 7 hours, does not want to get up. FISH NO ; CPAP NO Estimated Creatinine Clearance: 100 mL/min (based on SCr of 0.85 mg/dL). PAST MEDICAL HISTORY Diagnosis Date Migraine without aura, without mention of intractable migraine without mention of status migrainosus 07/22/2005 Prediabetes 2020 Current Outpatient Medications Medication Sig Dispense Refill medroxyPROGESTERone (DEPO-PROVERA) 150 mg/mL injection Inject 150 mg intramuscularly every 12 weeks. No current facility-administered medications for this visit. 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 [facility] BP 112/72 Pulse (!) 54 Wt 104.8 kg (231 lb) SpO2 94% BMI 39.44 kg/m? Physical Exam Constitutional: She appears healthy. No distress. Results: recent labs reviewed with the patient. Latest Ref Rng AND Units 02/12/2024 CMP Sodium 136 - 144 mmol/L 140 Potassium 3.7 - 5.1 mmol/L 3.9 Chloride 98 - 107 mmol/L 110 CO2 22 - 30 mmol/L 19 Glucose 74 - 99 mg/dL 109 BUN 7 - 21 mg/dL 22 Creatinine 0.58 - 0.96 mg/dL 0.85 EGFR >=60 mL/min/1.73m? 87 Protein, Total 6.3 - 8.0 g/dL 6.3 Albumin 3.9 - 4.9 g/dL 4.1 Calcium 8.5 - 10.2 mg/dL 8.9 Bilirubin, Total 0.2 - 1.3 mg/dL 0.4 AST 13 - 35 U/L 10 ALT 7 - 38 U/L 10 Alkaline Phosphatase 34 - 123 U/L 46 Cholesterol, Total (mg/dL) Date Value 02/12/2024 151 HDL Cholesterol (mg/dL) Date Value 02/12/2024 51 LDL Cholesterol (mg/dL) Date Value 02/12/2024 88 Triglyceride (mg/dL) Date Value 02/12/2024 60 Latest Ref Rng AND Units 02/12/2024 CBC WBC 3.70 - 11.00 k/uL 7.55 RBC 3.90 - (more content not included)... [facility] 01-16-2024 History of Present illness Narrative Images from the original note were not included. Patient Summary: Melanie Levy is a 43 year old female with obesity who presents for an initial evaluation of overweight/obesity to treat and prevent co-morbidities and is interested in combination of behavioral and pharmacological. Motivation for seeking treatment for the disease of overweight/obesity : does not like the way she looks and wants to do activities with kids and family Goal weight: 176 lb Lowest recall weight: 180 Highest recall weight: 276 Patient identified barriers to weight loss: food and alcohol is part of social events Weight History: She reports a strong family history of obesity and childhood weight gain. She states her weight gain is related to the following factors, including change in eating after parent's divorce - overate and ate unhealthy foods at grandparents weight retention , exposure to a weight gain promoting medication, Depo Provera, reduced physical activity, and consumption of unhealthy foods. - Last Wt 01/16/24 : 228 lb (103.4 kg) 5% weight loss = 189 lbs, 10% weight loss = 179 lbs WEIGHT GRAPH: Diet/Nutrition overview: Low carb during the work week. WE - up late morning. Lunch first meal but same. Awake - 0515 0600 Diet Coke B - 8-9 am meat and cheese snacks or jerky or occasionally PB crackers S - none L - 1200 meat and cheese with raw veg or salad with meat/Ranch dressing S - no D - 6-8 pm Salad with meat or grilled chicken and broccoli or pizza rolls or chicken nuggets if nothing prepared or easy to prepare Eats out on WE - [place], pizza, Citizen [place] S - occasional 8-10 pm chips/dip or popcorn Fluids - Diet Coke, occasional water. Alcohol one WE night - whiskey or coconut rum or cider beer Bedtime - Quality of diet: 24hr recall suggests somewhat healthy diet. Characterization of diet:Structured, excessive cravings, and evening snacking. 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 FISH NO ; CPAP NO Stress: Stress:yes , Cause:None Obesity Related Comorbidities: Prior Weight Loss Surgery:No PAST MEDICAL HISTORY Diagnosis Date Migraine without aura, without mention of intractable migraine without mention of status migrainosus 07/22/2005 Prediabetes 2020 PAST SURGICAL HISTORY Procedure Laterality Date LAPAROSCOPY SURG CHOLECYSTECTOMY 1998 Cholecystectomy, lap FAMILY HISTORY Problem Relation Age of Onset Obesity Mother other (dysplastic nerves [Other]) Father and one sister Obesity Father Obesity Sister Hypertension Sister Migraines Sister Obesity Sister COPD Maternal Grandmother Heart disease Maternal Grandmother Obesity Maternal Grandmother Diabetes Paternal Grandmother Obesity Paternal Grandmother Obesity Paternal Grandfather Social History Tobacco Use Smoking status: Former Types: Cigarettes Quit date: 10/16/2016 Years since quittin.2 Smokeless tobacco: Never Tobacco comments: one pack a week/ about 3 per day. Substance Use Topics Alcohol use: No Drug use: No Medications: None Weight Promoting Medications: Other NONE Diet/weight loss History: Past weight loss attempts? None tried. Caloric restriction, Keto, Low Carbohydrate diet, and MyFitnessPal 01/2021 276 lbs strict keto and started to exercise fell off 10/2022 when she started a new relationship. Has tried to try dirty keto and exercise but can not stay motivated. Exercise: Has gym at home but does not use it. Regular exercise: no Strength/resistance exercise:yes Barriers to regular exercise? no Work-related activity:Sedentary. 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 No current. No Menses since Depo. Obesity ROS GEN: Fatigue:Yes CV: h/o palpitations/cardiac arrhythmia, Chest pain: no HTN: no PULM: Asthma:no GI: GERD:no ; Gallstones: - s/p cholecystectomy ; Fatty liver disease:no Pancreatitis: no MSK: Joint Pain:no : Nephrolithiasis: no Symptoms of PCOS: no NEURO: Migraines/RAMIREZ: yes ; H/o seizures: no Glaucoma:no; Cataracts no Symptoms of or History of pseudotumor cerebri:no Family or personal History of MEN2 or Medullary thyroid cancer: no PE BP 104/68 (BP Site: Left Arm, BP Position: Sitting, BP Cuff Size: Extra Large Adult) Pulse 65 Ht 5' 4.17 (1.63 m) Wt 228 lb (103.4 kg) SpO2 97% BMI 38.93 kg/m Waist Circumference: 42 in GENERAL: Female in NAD. Mixed central and gluteofemoral adiposity. SKIN: acanthosis nigricans yes , Skin tags: no Hirsutism: no HEENT: PERRL, No supraclavicular adiposity. No dorsal adiposity. RESPIRATORY: CBTA CARDIAC: RRR ABDOMEN: Protuberant ; EXTREMITIES: peripheral edema: no Results: reviewed with the patient No visits with results within 3 Month(s) from this visit. Impression: Melanie Levy is a 43 year old Female with Class II obesity (Body mass index is 38.93 kg/m .) who has childhood onset obesity with several periods of weight loss followed by weight gain . The causes of her obesity are multifactorial, biological, psychological and social and environmental. Specific factors include a genetic component related to a strong family of obesity, exposure to weight gain promoting medication(s) , increased consumption of high calorie/process foods, suboptimal physical activity, and post weight retention. She has no significant weight-related medical comorbidities which increase her cardiovascular mortality risk. There are additional metabolic obesity complications including pre-diabetes. Other medical conditions as above. Regarding her lifestyle, as above, she has a few behavioral contributors ; her physical activity is non-existent. Overall, it is clear that her quality of life is mildly compromised by her weight. It is likely a combination of weight loss therapies will be needed. She appears motivated today. ASSESSMENT/PLAN: 1. Prediabetes - ICD9: 790.29, ICD10: R73.03 (primary diagnosis) - INSULIN ASSAY BLOOD - HEMOGLOBIN A1C - COMPREHENSIVE METABOLIC PANEL 2. Malaise and fatigue - ICD9: 780.79, ICD10: R53.81, R53.83 - VITAMIN D 25 HYDROXY - THYROID STIMULATING HORMONE 3. Screening cholesterol level - ICD9: V77.91, ICD10: Z13.220 - LIPID PANEL BASIC 4. Screening for deficiency anemia - ICD9: V78.1, ICD10: Z13.0 - COMPLETE BLOOD COUNT 5. Screening for diabetes mellitus - ICD9: V77.1, ICD10: Z13.1 - INSULIN ASSAY BLOOD - HEMOGLOBIN A1C - COMPREHENSIVE METABOLIC PANEL 6. Screening for metabolic disorder - ICD9: V77.99, ICD10: Z13.228 - COMPREHENSIVE METABOLIC PANEL 7. Screening for thyroid disorder - ICD9: V77.0, ICD10: Z13.29 - THYROID STIMULATING HORMONE 8. Encounter for vitamin deficiency screening - ICD9: V77.99, ICD10: Z13.21 - VITAMIN D 25 HYDROXY 9. Class 2 obesity with body mass index (BMI) of 38.0 to 38.9 in adult, unspecified obesity type, unspecified whether serious comorbidity present - ICD9: 278.00, V85.38, ICD10: E66.9, Z68.38 Plan: -- Based on the severity and resistance of the obesity/overweight with co-morbidities, I believe a combination of behavioral and pharmacological intervention is the best and most appropriate intermediate therapeutic option. - VITAMIN D 25 HYDROXY - INSULIN ASSAY BLOOD - HEMOGLOBIN A1C - COMPLETE BLOOD COUNT - LIPID PANEL BASIC - COMPREHENSIVE METABOLIC PANEL - THYROID STIMULATING HORMONE - Given information about metformin to read -- We discussed several strategies to track food intake and increase mindfulness around eating while will decrease calorie intake. She was counseled on the following: Eating primarily whole foods. Limit carbs, especially processed carbs. Do not drink your calories 30 grams of protein for breakfast decreases your hunger during the day by up to 40 % Premier Protein or generic 30 gm protein 1 gm sugar Walk for 15 minutes immediately a meal. - Recommended whole food low-carb diet with 30 g of protein 3 times a day and 30 g of carbs at lunch and dinner only. She has previously lost weight on ketogenic diet. - Given 15 gram carb whole food and protein suggestion list. - Given protein snack ideas -- Encouraged the patient to improve her physical activity. Although cardiovascular exercise is most beneficial for weight loss initially, we discussed healthy muscle from a combination of resistance training and cardiovascular exercise is the best exterminator plan. An overall goal of 150-200 minutes per week of exercise has been effective in weight loss and maintenance. -- Reviewed that monitoring weight daily and food intake can have a positive impact on overall weight loss and maintenance of weight loss. Activity tracking can be used to stay on target for exercise however should not be used to reward oneself She understands that there can be limitations of pharmacotherapy due to contraindications, side effects and cost. Patient was told to contact her insurance company to see what AOMs and supervised behavioral medical appointments are currently covered. Patient understands she will have more success when following a healthy lifestyle. We reviewed continued use of online tracking of daily weights, food journal and if desired physical activity. We reviewed that during management she is to report any concerning side effects of any pharmacotherapy she is placed on. She understands that she will need routine follow up in the office. Prior to any virtual visits in the future she will need to check her Blood pressure, weight, and pulse. -- follow-up visit in -6 for management of above interventions Sara Bergeron CNP Advanced Education from the [employer]esity [employer] Association I spent a total of 74 minutes on the date of the service which included preparing to see the patient, [id number] patient care, completing clinical documentation, obtaining and/or reviewing separately obtained history, performing a medically appropriate examination, counseling and educating the patient/family/caregiver, and ordering medications, tests, or procedures. documented in this encounter [facility] 01-16-2024 Note HNO ID: [id number] Author: SARA BERGERON APRN.CNP Service: ? Author Type: Nurse Practitioner Type: Progress Notes Filed: 01/16/2024 16:49 Note Text: Patient Summary: Melanie Levy is a 43 year old female with obesity who presents for an initial evaluation of overweight/obesity to treat and prevent co-morbidities and is interested in combination of behavioral and pharmacological. Motivation for seeking treatment for the disease of overweight/obesity : does not like the way she looks and wants to do activities with kids and family Goal weight: 176 lb Lowest recall weight: 180 Highest recall weight: 276 Patient identified barriers to weight loss: food and alcohol is part of social events Weight History: She reports a strong family history of obesity and childhood weight gain. She states her weight gain is related to the following factors, including change in eating after parent's divorce - overate and ate unhealthy foods at grandparents weight retention , exposure to a weight gain promoting medication, Depo Provera, reduced physical activity, and consumption of unhealthy foods. - Last Wt 01/16/24 : 228 lb (103.4 kg) 5% weight loss = 189 lbs, 10% weight loss = 179 lbs WEIGHT GRAPH: Diet/Nutrition overview: Low carb during the work week. WE - up late morning. Lunch first meal but same. Awake - 0515 0600 Diet Coke B - 8-9 am meat and cheese snacks or jerky or occasionally PB crackers S - none L - 1200 meat and cheese with raw veg or salad with meat/Ranch dressing S - no D - 6-8 pm Salad with meat or grilled chicken and broccoli or pizza rolls or chicken nuggets if nothing prepared or easy to prepare Eats out on WE - N[place], pizza, Citizen Of [place] S - occasional 8-10 pm chips/dip or popcorn Fluids - Diet Coke, occasional water. Alcohol one WE night - whiskey or coconut rum or cider beer Bedtime - Quality of diet: 24hr recall suggests somewhat healthy diet. Characterization of diet:Structured, excessive cravings, and evening snacking. 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 FISH NO ; CPAP NO Stress: Stress:yes , Cause:None Obesity Related Comorbidities: Prior Weight Loss Surgery:No PAST MEDICAL HISTORY Diagnosis Date Migraine without aura, without mention of intractable migraine without mention of status migrainosus 07/22/2005 Prediabetes 2020 PAST SURGICAL HISTORY Procedure Laterality Date LAPAROSCOPY SURG CHOLECYSTECTOMY 1998 Cholecystectomy, lap FAMILY HISTORY Problem Relation Age of Onset Obesity Mother other (dysplastic nerves [Other]) Father and one sister Obesity Father Obesity Sister Hypertension Sister Migraines Sister Obesity Sister COPD Maternal Grandmother Heart disease Maternal Grandmother Obesity Maternal Grandmother Diabetes Paternal Grandmother Obesity Paternal Grandmother Obesity Paternal Grandfather Social History Tobacco Use Smoking status: Former Types: Cigarettes Quit date: 10/16/2016 Years since quittin.2 Smokeless tobacco: Never Tobacco comments: one pack a week/ about 3 per day. Substance Use Topics Alcohol use: No Drug use: No Medications: None Weight Promoting Medications: Other NONE Diet/weight loss History: Past weight loss attempts? None tried. Caloric restriction, Keto, Low Carbohydrate diet, and MyFitnessPal 01/2021 276 lbs strict keto and started to exercise fell off 10/2022 when she started a new relationship. Has tried to try dirty keto and exercise but can not stay motivated. Exercise: Has gym at home but does not use it. Regular exercise: no Strength/resistance exercise:yes Barriers to regular exercise? no Work-related activity:Sedentary. 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 No current. No Menses since Depo. Obesity ROS GEN: Fatigue:Yes CV: h/o palpitations/cardiac arrhythmia, Chest pain: no HTN: no PULM: Asthma:no GI: GERD:no ; Gallstones: - s/p cholecystectomy ; Fatty liver disease:no Pancreatitis: no MSK: Joint Pain:no : Nephrolithiasis: no Symptoms of PCOS: no NEURO: Migraines/RAMIREZ: yes ; H/o seizures: no Glaucoma:no; Cataracts no Symptoms of or History of pseudotumor cerebri:no Family or personal History of MEN2 or Medullary thyroid cancer: no PE BP 104/68 (BP Site: Left Arm, BP Position: Sitting, BP Cuff Size: Extra Large Adult) Pulse 65 Ht 5' 4.17 (1.63 m) Wt 228 lb (103.4 kg) SpO2 97% BMI 38.93 kg/m? Waist Circumference: 42 in GENERAL: Female in NAD. Mixed central and gluteofemoral adiposity. SKIN: acanthosis nigricans yes , Skin tags: no Hirsutism: no HEENT: PERRL, No supraclavicular adiposity. No dorsal adiposity. RESPIRATORY: CBTA CARDIAC: RRR ABDOMEN: Protuberant ; (more content not included)... [facility] 01-16-2024 Instructions Sara Bergeron APRN.[facility] - 01/16/2024 11:51 AM EDT Weight Management: You have taken the initiative to become a healthier version of yourself and to decrease the risks that come with the diagnosis of obesity or being overweight. We are happy to help you along this journey but know this is a lifetime commitment to yourself. Losing just 3-10 % of your body weight can decrease your risks of many other serious diseases like diabetes, heart disease, osteoarthritis, hypertension, cancer and so many others. During this time you will have triumphs, setbacks and plateaus- your body will fight against you but we are here to give you the tools and the resources to continue to reach your goals. We recommend during this time that you track your weight daily or at least five times per week as well as tracking your nutrition. You may track your activity but do not use hitting your fitness goals as a reward system as this can derail your success. We recommend weekly physical activity of 150-200 min/week-although physical exercise, this will be especially important for weight maintenance. Exercise can have many other benefits including improving insulin resistance, improving balance, bone health, improving mental health and cardiovascular health. Do not feel overwhelmed - we will discuss this more at your visits. Our time will be limited with each visit but we will try to touch on factors that are important to you and to your overall goals. We will try to set a goal at the end of each visit and then decide on what we want to accomplish with your upcoming visits. On your After Visit Summary (AVS), we will provide you with information that may be useful during this journey so please remember to read the information given. Check your AVS a few days after your appointment because we may have added more information specifically for you. Remember that if you are placed on medications, they are tools that can help you succeed but you must put in the work. Your nutrition will be the main factor. There are medications that work well for some and not for others- so it may take time to find the right combination for your body's needs. Please remember that factors such as other health co-morbidities one might have, as well as insurance coverage, will play a factor in determining which medications you can take. Most of the newer medications that are all the craze ,injectables, may not be covered or will only be covered if you fail months of oral medications or have Type 2 diabetes so please be patient with the process. It would be beneficial for you to determine what your insurance covers as far as Anti-Obesity Medications (AOMs), Nutritional Counseling, behavioral intervention and weight loss surgery. Please call your health insurance prior to your first appointment and write down coverage for each of those therapies. Most importantly, remember that ultimately our goal is to help you get to a healthier weight which will decrease your overall health risks. We will work together as a team and try to reach your personalized goals as well. Follow-up appointments Please arrive to follow-up visits a minimum of 15 minutes prior to your appointment. Follow-up weight management visits can be virtual. You will need to report a current blood pressure, heart rate (pulse) and weight at the beginning of each virtual appointment so you will need to have a reliable BP cuff, either wrist or upper arm. If you need to reschedule your appointment time or switch from an in-office visit to a virtual visit or vice versa, you need to call our office as we have designated appointment slots. This should not be done on tapvivahart as you will not be scheduled appropriately and will need to be rescheduled. We appreciate that you have entrusted us with your health and know that we are committed to this process with you. Sincerely, Gloria Perry MD, PRAFUL BATISTA & Sara Bergeron CNP Advanced Education from the Obesity Medicine Association Obesity Obesity is a disease that affects nearly one-third of the adult [place] population (approximately 60 million). The number of overweight and obese Americans has continued to increase since 1959, a trend that is not slowing down. Today, 64.5 percent of adult Americans (about 127 million) are categorized as being overweight or obese. Each year, obesity causes at least 300,000 excess deaths in the [place] and healthcare costs of [place] adults with obesity amount to approximately $100 billion. (AOA) Obesity is a complex, multi-factorial chronic disease involving: Environmental (social and cultural) The tendency toward obesity is a result of our environment: lack of physical activity along with high-calorie, low-cost foods. Home, work, school, and even the community can inhibit a healthy lifestyle. Genetic (Hereditary plays a large role in determining how susceptible people are to overweight and obesity). Genes also influence how the body [place] calories for energy and stores fat. Physiologic, metabolic, behavioral (eating too many calories while not getting enough exercise) and psychological components. It is the second leading cause of preventable in the [place] Behavioral changes brought on by economic development, modernization and urbanization have been linked to the rise in global obesity. Calculating BMI Body Mass Index (BMI) is a measurement tool used to determine excess body weight. Overweight is defined as a BMI of 25 or more, obesity is 30 or more, and severe obesity is 40 or more. You can visit www.nhlbi.nih.gov to estimate your BMI. Obesity Related Health Conditions The morbidity and mortality risk from being overweight is proportional to its degree. Individuals with morbid obesity, therefore, have the highest risk for developing numerous illnesses that often reduce mobility and quality of life due to their excess weight. In particular, type 2 diabetes, gallbladder disease and osteoarthritis have been found to increase concurrently with higher BMI. Premature , a 20-year shorter life span, has also been found in individuals with morbid obesity. All of the systems that make the body function are affected by morbid obesity. Type 2 diabetes Gallbladder disease and gallstones Liver disease Osteoarthritis, a disease in which the joints deteriorate. This is possibly the result of excess weight on the joints. Gout, another disease affecting the joints Pulmonary (breathing) problems, including sleep apnea in which a person can stop breathing for a short time during sleep Reproductive problems in women, including menstrual irregularities and infertility Gastroesophageal reflux/heartburn Hypertension Heart Disease Depression Psychological disorders/social impairments Urinary Stress Incontinence Obesity is also linked to higher rates of certain types of cancer. Obese men are more likely than non-obese men to from cancer of the colon, rectum, or prostate. Obese women are more likely than non-obese women to from cancer of the gallbladder, breast, uterus, cervix, or ovaries [email or web address] Nutrition - Eat primarily whole foods. Limit carbs, especially processed carbs. Eat - Meat, vegetables and fruits with skin on if possible, eggs, cheese. - Do not drink your calories - 30 grams of protein for your first meal of the day decreases your hunger during the day by up to 40 %. Options include: Premier Protein or generic 30 gm protein 1 gm sugar or 5 eggs or 2-3 eggs and some unbreaded meat and/or cheese. No fruit, vegetables, bread, grain, yogurt, Smoothies, etc. - Walk for 15 minutes immediately after meal - Whole food low-carb diet with 30 g of protein 3 times a day and up to 30 g of carbs at lunch and dinner only. Meals - protein is a goal and carbohydrates are a limit Snacks - all protein or more protein than carbs Use tracking log as a worksheet and bring with you to your next appointment. Protein - no carbs Egg 1 large - 6g Egg white 1 large 3.6g 3 oz is approximately the size of a deck of cards and equals 21 g protein so 4 oz is 28 gm protein Beef, Chicken, [place], Pork, [place] 1 oz 7g Fish, Tuna Fish 1 oz 7g (Starkist tuna packet 2.6 oz 17 gm protein) Seafood (Crabmeat, Shrimp, Lobster) 1 oz 6g Protein shakes (read labels) Premier Protein or generic [employer] Equate, [employer] High Performance- 30g protein & 1g carb - meal replacement Premier Protein powder or generic- 30 gm protein, 1g carb Premier Protein plant protein powder - 25 gm protein, 0 suger/2 carb Vanilla and chocolate (not a meal replacement) Fairlife 30 gram protein - 30g protein & 3g carb BOOST Glucose Control Max 30g Protein Nutritional Drink - 30g protein & 1 carb - meal replacement Slimfast High Protein - 20g protein & 1g carb Ensure Max Protein Nutrition Shake 30g protein & 2 carb Protein AND carbs Beef/[place] Jerky 1 oz dried 10-15g protein - check carb count, can be high if sugar added Slim Herb - 6 gm protein and 4 net carb Great Value original turkey sausage sticks - 7 gm protein and 2 gm carb Beny & Davin (at [employer]) Original smoked sausage sticks - 8 gm protein and 0 carb Imitation Crab Meat 1 oz - 2g protein & 4g carb Milk, skim 2% or 1% 8 oz - 8g protein & 12g carb Norwegian yogurt Full Fat Norwegian Yogurt 1 cup - 20.4g protein & 9.1g carb 2% Norwegian Yogurt 1 cup - 22.7g protein & 9.1g carb 0% (fat-free) Norwegian Yogurt - 1 cup 24g protein & 9.3g carb Aldi Protein Norwegian yogurt single svg - 15g protein & 7g carb Chobani Zero Sugar single svg: - 11g protein & 5g carb Dannon Light + Fit 1 single svg - 12g protein & 9g carb Oikos Pro single svg - 20g protein & 8g carb Oikos Triple Zero [place] Nonfat Yogurt 1 single svg - 15g protein & 7g carb :ratio, KETO Friendly Dairy Snack 1 single svg - 15g protein & 2g carb :ratio Protein 1 single svg - 25g protein & 8g carb Two Good Lowfat [place] Yogurt, [place], Lower Sugar - 12g protein & 2g carb Cheese each oz Brie 5.9g protein & 0.1g carb Cheddar Cheese 7g protein & 0.4g carb Mozzarella Cheese 6.3g protein & 0.6g carb Tai Cheese 6.7g protein & 0.7g carb Parmesan Cheese 10g protein & 0.9g carb Cream Cheese 1.7g protein & 1.2g carb Feta 4g protein & 1.2g carb Estonian Cheese 7.6g protein & 1.5g carb Tran s Low Fat Cottage Cheese 1/2cup 12g protein & 4g carb Legumes Lentils cup 9g protein & 20g carb [place]ue beans cup 7g protein & 20g carb Kidney, Black, [place], Cannellini beans cup 8g protein & 20g carb Soybeans 1/2 c 14g complete protein & 8.5g carb Peanut butter, natural 2 Tbsp 7-8g protein & 4g net carbs, 190 calories PB2 powder 2 Tbsp 6g protein & 5g carb [place] milk, unsweetened 8 oz 1g protein & 2g carb Soy milk 8 oz 3.5g protein & 1.6g carb Tofu 1/2 cup 10g protein & 2.3g carb Nuts and Seeds per oz Pumpkin Seeds - 6.9g protein & 5g carb Almonds - 5.9g protein & 6.1g carb [place] Seeds - 5.8g protein & 5.6g carb Pistachios - 5.8g protein & 7.8g carb Cashews - 5.1g protein & 9.2g carb Walnuts - 4.3g protein & 3.8g carb Hazelnuts - 4.2g protein & 4.7g carb [place] Nuts - 4.0g protein & 3.4g carb Pecans - 2.6g protein & 3.9g carb Peanuts - 7g protein & 4.6g carb Hemp seeds 3 T/30 gms - 9.5 gm complete protein and 2.5 gm carb <15 gram carb fruit options Berries have the lowest sugar content 1/2 medium apple - 12.5 carbs 1/2 medium avocado - 6.5 gm carbs 1/2 medium banana - 15 carbs 1/2 cup blueberries - 11 carbs - may actually help you lose weight 1/2 cup fresh cherries -11 carbs 1 medium Tasha -9 carbs 1/2 cup fresh cranberries - 6.5 carbs 1/2 c grapes - 15 carbs 1/2 medium grapefruit - 10.5 carbs 1/2 cup diced honeydew melon - 8 carbs 1 medium kiwi without skin - 11 carbs 1/2 cup sliced julia -14 carbs 1 medium nectarine - 15 carbs 1 medium orange -15.5 carbs 1 medium peach -14.5 carbs 1/2 cup fresh pineapple -11 carbs 1 medium plum -7.5 carbs 1 prune - 6 carbs 1/2 cup raspberries -7.5 carbs 1/2 c strawberries - 12.7 carbs 1 medium tangerine -12 carbs 1/2 cup diced watermelon - 6 carbs 5 (FIVE) gram carb vegetable options 1 cup raw OR cup cooked: Asparagus Trivedi sprouts Broccoli Brussel sprouts Cabbage Carrots Cauliflower Celery Ecorse Eggplant Green beans Lettuce Peppers Snap peas Spaghetti squash Spinach Tomato Turnips Zucchini 15 gram carb vegetable options cup cooked corn or hominy corn on the cob, large (5 oz) cup cooked green peas 1 small potato or sweet potato cup cooked potato, plain cup cooked sweet potato, plain 1 cup winter squash (pumpkin, acorn, butternut) 1 cup marinara or pasta sauce - check label cup tomato juice cup tomato puree Beans, Seeds, Nuts cup cooked beans (kidney, diamond, red, green, etc.) cup cooked lentils cup baked beans 4 tablespoons nut butter Grains Brown rice 1/2 c 5.5g protein 24 carb White long-grain rice 1/2 c 2g protein 22.5 carb Quinoa 1/2 c 4 gm complete protein 25 carb Oatmeal, old fashioned 1/2 c 5g protein 27g carb High Protein Snack Ideas 1. Jerky 2. [place] mix without dried fruit 3. [place] roll-ups 4. Norwegian yogurt 5. Veggies and yogurt dip 6. Tuna 7. Hard-boiled eggs 8. Peanut butter with celery 9. Cheese slices/ Cheese Stick 10. Handful of almonds, peanuts or walnuts 11. Cottage Cheese 12. Beef sticks 13. Protein bars 14. Canned Dinosaur 15. Pumpkin seeds 16. Nut butter 17. Protein shakes 18. Avocado and chicken salad 19. Egg muffins 20. Leftover protein or lunch meat 21. 1/2 c blended cottage cheese with 1 Tbsp sugar-free dry cheesecake pudding mix 12g protein 10 carb 22. Pudding - 1 30 gm protein shake with 1/2 pkg sugar-free pudding 4 svgs - 7.8 gm protein, 5 carb each svg METFORMIN Dosing -- Begin Metformin 500 mg with dinner daily x 1 week. If you are experiencing any GI side effects, do not increase dose for 1-4 weeks. If tolerating, you can increase to 2 tablets with dinner daily. Taking the medication with food will help. -- if you experience any GI upset (Nausea, diarrhea, bloating, gas) you can go back to 1 tablet or hold the medication until it resolves. Once you are tolerating the medication you can try increasing it again. -- we can discuss increasing the dose further at your follow up visit. -- Metformin can interfere with the absorption of B12 in your food, please add a B12 1,000-2,400 mcg supplement and I suggest having it checked every 1-2 years Using Metformin for weight loss: Metformin helps to lower blood glucose levels by reducing the amount of glucose produced and released by the liver, and by increasing insulin sensitivity. It has now been proven to prevent or delay diabetes. Metformin and Type 2 Diabetes Prevention Diabetes Spectrum (diabetesjournals.org) Large cohort studies have shown weight loss benefits associated with metformin therapy. Emerging evidence suggests that metformin-associated weight loss is due to modulation of hypothalamic appetite-regulatory centers, alteration in the gut microbiome, and reversal of consequences of aging. Metformin is also being explored in the management of obesity s sequelae such as hepatic steatosis, obstructive sleep apnea and osteoarthritis. Effectiveness of metformin on weight loss in non-diabetic individuals with obesity - PubMed (nih.gov) Is metformin a wonder drug? - [facility] Common side effects of this medication include nausea, changes in bowel habits, abdominal discomfort, and flatulence. Taking the medication with food will help. Side effects also typically get better with time. Rarely, a severe side effect called lactic acidosis can occur. If you experience malaise, muscle aches, difficulty breathing, or severe abdominal pain, please seek immediate medical attention. Metformin: Patient drug information Warning Rarely, metformin may cause too much lactic acid in the blood (lactic acidosis). The risk is higher in people who have kidney problems, liver problems, heart failure, use alcohol, or take other drugs like topiramate. The risk is also higher in people who are 65 or older and in people who are having surgery, an exam or test with contrast, or other procedures. If lactic acidosis happens, it can lead to other health problems and can be deadly. Kidney tests may be done while taking this drug. Do not take this drug if you have a very bad infection, low oxygen, or a lot of fluid loss (dehydration). Call your doctor right away if you have signs of too much lactic acid in the blood (lactic acidosis) like fast breathing, fast or slow heartbeat, a heartbeat that does not feel normal, very bad upset stomach or throwing up, feeling very sleepy, shortness of breath, feeling very tired or weak, very bad dizziness, feeling cold, or muscle pain or cramps. What is this drug used for? It is used to lower blood sugar in patients with high blood sugar (diabetes), treatment for PCOS, What do I need to tell my doctor BEFORE I take this drug? If you are allergic to this drug; any part of this drug; or any other drugs, foods, or substances. Tell your doctor about the allergy and what signs you had. If you have any of these health problems: Acidic blood problem, kidney disease, or liver disease. If you have had a recent heart attack or stroke. If you are not able to eat or drink like normal, including before certain procedures or surgery. If you are having an exam or test with contrast or have had one within the past 48 hours, talk with your doctor. This is not a list of all drugs or health problems that interact with this drug. Tell your doctor and pharmacist about all of your drugs (prescription or OTC, natural products, vitamins) and health problems. You must check to make sure that it is safe for you to take this drug with all of your drugs and health problems. Do not start, stop, or change the dose of any drug without checking with your doctor. What are some things I need to know or do while I take this drug? All products: Tell all of your health care providers that you take this drug. This includes your doctors, nurses, pharmacists, and dentists. Talk with your doctor before you drink alcohol. Do not drive if your blood sugar has been low. There is a greater chance of you having a crash. Check your blood sugar as you have been told by your doctor. Have blood work checked as you have been told by the doctor. Talk with the doctor. It may be harder to control blood sugar during times of stress such as fever, infection, injury, or surgery. A change in physical activity, exercise, or diet may also affect blood sugar. Follow the diet and workout plan that your doctor told you about. If diarrhea happens or you are throwing up, call your doctor. You will need to drink more fluids to keep from losing too much fluid. Be careful in hot weather or while being active. Drink lots of fluids to stop fluid loss. Long-term treatment with metformin may lead to low vitamin B-12 levels. If you have ever had low vitamin B-12 levels, talk with your doctor. If you are 65 or older, use this drug with care. You could have more side effects. There is a chance of in people of childbearing age who have not been ovulating. If you want to avoid , use control while taking this drug. Tell your doctor if you are , plan on getting , or are breast-feeding. You will need to talk about the benefits and risks to you and the baby. What are some side effects that I need to call my doctor about right away? WARNING/CAUTION: Even though it may be rare, some people may have very bad and sometimes deadly side effects when taking a drug. Tell your doctor or get medical help right away if you have any of the following signs or symptoms that may be related to a very bad side effect: Signs of an allergic reaction, like rash; hives; itching; red, swollen, blistered, or peeling skin with or without fever; wheezing; tightness in the chest or throat; trouble breathing, swallowing, or talking; unusual hoarseness; or swelling of the mouth, face, lips, tongue, or throat. It is common to have stomach problems like upset stomach, throwing up, or diarrhea when you start taking this drug. If you have stomach problems later during treatment, call your doctor right away. This may be a sign of an acid health problem in the blood (lactic acidosis). Low blood sugar can happen. The chance may be raised when this drug is used with other drugs for diabetes. Signs may be dizziness, headache, feeling sleepy or weak, shaking, fast heartbeat, confusion, hunger, or sweating. Call your doctor right away if you have any of these signs. Follow what you have been told to do for low blood sugar. This may include taking glucose tablets, liquid glucose, or some fruit juices. What are some other side effects of this drug? All drugs may cause side effects. However, many people have no side effects or only have minor side effects. Call your doctor or get medical help if any of these side effects or any other side effects bother you or do not go away: Stomach pain or heartburn. Gas. Diarrhea, upset stomach, or throwing up. Feeling tired or weak. Headache. These are not all of the side effects that may occur. If you have questions about side effects, call your doctor. Call your doctor for medical advice about side effects. You may report side effects to your national health agency. How is this drug best taken? Use this drug as ordered by your doctor. Read all information given to you. Follow all instructions closely. All products: Take with meals. Keep taking this drug as you have been told by your doctor or other health care provider, even if you feel well. documented in this encounter [facility] 12-04-2022 History of Present illness Narrative Images from the original note were not included. Subjective HPI Melanie Levy is a 42 year old female who presents with a possible foreign body in her left eye. This started last night. Feels like she has something in her eye. She is a contact lens wearer, has not worn them since this started. She has not had any visual loss. It is hard for her to keep her eye open. She flushed her eye with contact lens solution last night. Review of Systems Constitutional: Negative for chills and fever. Eyes: Positive for photophobia, pain and redness. Negative for blurred vision, double vision and discharge. Skin: Negative for itching and rash. BP 122/70 Pulse 70 Temp 36.8 C (98.3 F) Resp 16 Wt 90.3 kg (199 lb) SpO2 97% PAST MEDICAL HISTORY Diagnosis Date Migraine without aura, without mention of intractable migraine without mention of status migrainosus 07/22/2005 PAST SURGICAL HISTORY Procedure Laterality Date LAPAROSCOPY SURG CHOLECYSTECTOMY 1998 Cholecystectomy, lap ALLERGIES Latex MEDICATIONS estradiol cypionate (DEPO-ESTRADIOL INTRAMUSC.) Inject intramuscularly. (Patient not taking: Reported on 12/04/2022) erythromycin (ROMYCIN) 5 mg/gram (0.5 %) ophthalmic ointment Use 1 application in the left eye four times daily for 7 days. FAMILY HISTORY Problem Relation Age of Onset Prostate Cancer Maternal Grandfather Hypertension Sister other (migraines [Other]) Sister other (dysplastic nerves [Other]) Father and one sister Diabetes Paternal Grandmother Social History Tobacco Use Smoking status: Former Types: Cigarettes Quit date: 10/16/2016 Years since quittin.1 Smokeless tobacco: Never Tobacco comments: one pack a week/ about 3 per day. Substance Use Topics Alcohol use: No Drug use: No Objective Physical Exam Vitals and nursing note reviewed. Constitutional: Appearance: Normal appearance. Eyes: General: Lids are normal. Lids are everted, no foreign bodies appreciated. Left eye: No foreign body, discharge or hordeolum. Extraocular Movements: Left eye: Normal extraocular motion and no nystagmus. Conjunctiva/sclera: Left eye: Left conjunctiva is injected. No chemosis, exudate or hemorrhage. Pupils: Pupils are equal, round, and reactive to light. Left eye: Fluorescein uptake present. Slit lamp exam: Left eye: Corneal ulcer present. No corneal flare or foreign body. Comments: Left eye with increased fluorescein update in center of pupil. Skin: General: Skin is warm and dry. Findings: No erythema or rash. Neurological: Mental Status: She is alert. ASSESSMENT/PLAN: 1. Abrasion of left cornea, initial encounter - ICD9: 918.1, ICD10: S05.02XA - abrasion vs. ulceration - ERYTHROMYCIN 5 MG/GRAM (0.5 %) EYE OINTMENT - CONSULT TO OPHTHALMOLOGY - Follow-up with your eye doctor in 1-2 days. - Discussed red flags and need for immediate medical evaluation if any occur. - Discussed supportive care treatment with fluids, rest and analgesia. - Discussed expected course of illness Shannon Bridges APRN.CNP documented in this encounter [facility] 12-04-2022 Instructions Shannon Bridges APRN.CNP - 12/04/2022 10:44 AM EDT ASSESSMENT/PLAN: 1. Abrasion of left cornea, initial encounter - ICD9: 918.1, ICD10: S05.02XA - abrasion vs. ulceration - ERYTHROMYCIN 5 MG/GRAM (0.5 %) EYE OINTMENT - CONSULT TO OPHTHALMOLOGY - Follow-up with your eye doctor in 1-2 days. - Discussed red flags and need for immediate medical evaluation if any occur. - Discussed supportive care treatment with fluids, rest and analgesia. - Discussed expected course of illness Shannon Bridges APRN.CNP CORNEAL ABRASION GENERAL INFORMATION: A corneal abrasion is a scratch to the clear layer that covers the front part of the eye. Small scratches usually heal within 1 or 2 days. Deeper or larger scratches may take about a week. INSTRUCTIONS: 1. See your eye doctor in 1-2 days for a recheck. 2. Do not drive or operate machinery while your eye is painful. Your ability to lifeguard distances is impaired. I 3. If you usually wear contact lenses, do not wear them until approved by your follow-up doctor. 4. You should rest your eyes. Avoid reading, watching TV, and other activities that require excessive use of your eyes. 5. If you had a foreign body in your eye removed, and you are at risk of getting another one because you still perform the activity that caused it in the first place, wear protective eyewear such as goggles or glasses. 6. If your doctor prescribed drops or ointment for your eye, use them as instructed. documented in this encounter [facility] Evaluation note No assessment inform ation available [facility] Work Phone: Evaluation note Diagnosis Abrasion of left cornea, initial encounter- Primary [facility] Diagnosis Prediabetes- Primary Other abnormal glucose Malaise and fatigue Other malaise and fatigue Screening cholesterol level Screening for lipoid disorders Screening for deficiency anemia Screening for other and unspecified deficiency anemia Screening for diabetes mellitus Screening for metabolic disorder Screening for thyroid disorder Encounter for vitamin deficiency screening Screening for other and unspecified endocrine, nutritional, metabolic, and immunity disorders Class 2 obesity with body mass index (BMI) of 38.0 to 38.9 in adult, unspecified obesity type, unspecified whether serious comorbidity present [facility] Diagnosis Prediabetes- Primary Other abnormal glucose Intractable migraine without aura and without status migrainosus Migraine without aura, with intractable migraine, so stated, without mention of status migrainosus Class 2 obesity with body mass index (BMI) of 38.0 to 38.9 in adult, unspecified obesity type, unspecified whether serious comorbidity present [facility] Diagnosis Encounter for gynecological examination with abnormal finding- Primary Routine gynecological examination Mass of upper inner quadrant of left breast General counseling and advice for contraceptive management Other general counseling and advice for contraceptive management Screen for STD (sexually transmitted disease) Screening examination for venereal disease Encounter for Papanicolaou smear for cervical cancer screening Screening for human papillomavirus (HPV) Special screening examination for human papillomavirus (HPV) [facility] Diagnosis Prediabetes- Primary Other abnormal glucose Intractable migraine without aura and without status migrainosus Migraine without aura, with intractable migraine, so stated, without mention of status migrainosus Class 2 obesity with body mass index (BMI) of 38.0 to 38.9 in adult, unspecified obesity type, unspecified whether serious comorbidity present [facility] Diagnosis Encounter for IUD insertion- Primary Encounter for insertion of intrauterine contraceptive device [facility] Diagnosis Encounter for screening mammogram for malignant neoplasm of breast- Primary Other screening mammogram [facility] Diagnosis Mass of upper inner quadrant of left breast [facility] Diagnosis Mass of upper inner quadrant of left breast [facility] Diagnosis Prediabetes- Primary Other abnormal glucose Intractable migraine without aura and without status migrainosus Migraine without aura, with intractable migraine, so stated, without mention of status migrainosus Class 2 obesity with body mass index (BMI) of 38.0 to 38.9 in adult, unspecified obesity type, unspecified whether serious comorbidity present documented in this encounter [facility] note* Diagnosis Surveillance of previously prescribed intrauterine contraceptive device- Primary Breast abscess Inflammatory disease of breast [facility] Diagnosis Breast abscess Inflammatory disease of breast [facility] Diagnosis Infected sebaceous cyst- Primary Sebaceous cyst [facility] Diagnosis Infected sebaceous cyst- Primary Sebaceous cyst [facility] Diagnosis Sebaceous cyst- Primary [facility] Diagnosis Sebaceous cyst- Primary [facility] Diagnosis Prediabetes- Primary Other abnormal glucose Class 2 obesity with body mass index (BMI) of 38.0 to 38.9 in adult, unspecified obesity type, unspecified whether serious comorbidity present documented in this encounter [facility] note* Diagnosis Prediabetes- Primary Other abnormal glucose Intractable migraine without aura and without status migrainosus Migraine without aura, with intractable migraine, so stated, without mention of status migrainosus Class 2 obesity with body mass index (BMI) of 38.0 to 38.9 in adult, unspecified obesity type, unspecified whether serious comorbidity present [facility] Diagnosis Prediabetes- Primary Other abnormal glucose Intractable migraine without aura and without status migrainosus Migraine without aura, with intractable migraine, so stated, without mention of status migrainosus Class 2 obesity with body mass index (BMI) of 38.0 to 38.9 in adult, unspecified obesity type, unspecified whether serious comorbidity present documented in this encounter [facility] for referral (narrative)* Diagnostic Procedure Only (Routine) - Authorized Specialty Diagnoses / Procedures Referred By Yoselyn t Referred To Contact [facility] Diagnoses Mass of upper inner quadrant of left breast Procedures MICHAEL DIAGNOSTIC BILATERAL DIAGNOSTIC MAMMOGRAPHY COMPUTER-AIDED DETCJ BI Sara Bergeron APRN.CNP [address] [place] [address] [facility] [address] [place] [phone] Referral ID Status Reason Start Date Expiration Date Visits Requested Visits Authorized [id number] Authorized Auto-Generat ed Referral 03/15/2024 04/14/2025 1 1 * Diagnostic Procedure Only (Routine) - Authorized Specialty Diagnoses / Procedures Referred By Yoselyn t Referred To Contact [facility] Diagnoses Mass of upper inner quadrant of left breast Procedures US BREAST LTD LEFT US BREAST UNI REAL TIME WITH IMAGE LIMITED Sara Bergeron APRN.CNP [address] [place] [address] [facility] [address] [place] [phone] Referral ID Status Reason Start Date Expiration Date Visits Requested Visits Authorized [id number] Authorized Auto-Generat ed Referral 03/15/2024 04/14/2025 1 1 * Outpatient Procedure (Routine) - Pending Review Specialty Diagnoses / Procedures Referred By Yoselyn t Referred To Contact [facility] Diagnoses General counseling and advice for contraceptive management Procedures INSERT INTRAUTERINE DEVICE LEVONORGESTREL IU 52MG 5 YR INSERT INTRAUTERINE DEVICE Sara Bergeron APRN.CNP [address] [place] [address] [facility] [address] [place] [address] Referral ID Status Reason Start Date Expiration Date Visits Requested Visits Authorized [id number] Pending Review Auto-Generat ed Referral 03/15/2024 03/15/2025 1 1 [facility] for referral (narrative)* Diagnostic Procedure Only (Routine) - New Request Specialty Diagnoses / Procedures Referred By Yoselyn lee Referred To Contact [facility] Diagnoses Encounter for screening mammogram for malignant neoplasm of breast Procedures MICHAEL SCREENING W EMILIA SCREENING DIGITAL BREAST TOMOSYNTHESIS BI SCREENING MAMMOGRAPHY BI 2-VIEW BREAST INC CAD Sara Bergeron APRN.BEER MAKER [address] [place] [address] [facility] [address] [place] [address] Referral ID Status Reason Start Date Expiration Date Visits Requested Visits Authorized [id number] New Request Auto-Generat ed Referral 04/24/2024 05/24/2025 1 1 [facility] for referral (narrative)* Diagnostic Procedure Only (Routine) - Closed Specialty Diagnoses / Procedures Referred By Yoselyn lee Referred To Contact [facility] Diagnoses Mass of upper inner quadrant of left breast Procedures US BREAST LTD LEFT US BREAST UNI REAL TIME WITH IMAGE LIMITED Sara Bergeron APRN.BEER MAKER [address] [place] [address] [facility] [address] [place] [address] Referral ID Status Reason Start Date Expiration Date V isits Requested Visits Authorized [id number] Closed Auto-Generate d Referral 03/15/2024 04/14/2025 1 1 T [facility] for referral (narrative)No reason for referral [facility] Work [facility]: Reason for visit Narrative* Diagnostic Procedure Only (Routine) - Closed Specialty Diagnoses / Procedures Referred By Yoselyn lee Referred To Contact [facility] Diagnoses Mass of upper inner quadrant of left breast Procedures MICHAEL DIAGNOSTIC BILATERAL DIAGNOSTIC MAMMOGRAPHY COMPUTER-AIDED DETCJ BI Sara Bergeron APRN.BEER MAKER [address] [place] [address] [facility] [address] [place] [address] Referral ID Status Reason Start Date Expiration Date V isits Requested Visits Authorized [id number] Closed Auto-Generate d Referral 03/15/2024 04/14/2025 1 1 [facility] Chief Complaint and Reason for Visit Chief Complaint BLOOD DRAW Chief Complaint BLOOD DRAW EORDER Chief Complaint Admit Date Other specified soft tissue disorders Ma y 2024 12:56pm Advance Directives No Advanced Directives Records Found Advance Directive Response Recorded Date/ Time Living Will No October 04 018 3:55pm Power of Cardiopulmonary Technician And Eeg Tech No October 04, 2017 3:55pm Reason for Referral Specialty Diagnoses / Procedures Referred By Contac t Referred To Contact Ophthalmology Diagnoses Abrasion of left cornea, initial encounter Procedures CONSULT TO OPHTHALMOLOGY OFFICE/OUTPATIENT [facility] 60-74 MINUTES Shannon Bridges APRN.BEER MAKER [address] [place] [address] Referral ID Status Reason Start Date Expiration Date Visits Requested Visits Authorized [id number] Authorized PCP Requested Referral 12/04/2022 12/04/2023 1 1 Specialty Diagnoses / Procedures Referred By Contac t Referred To Contact General Surgery Diagnoses Breast abscess Procedures CONSULT TO GENERAL SURGERY OFFICE/OUTPATIENT [facility] 60 MINUTES Marty Patterson APRN.BEER MAKER [address] [place] [address] Referral ID Status Reason Start Date Expiration Date Visits Requested Visits Authorized [id number] Authorized PCP Requested Referral 4 06/07/2025 1 1 Specialty Diagnoses / Procedures Referred By Contac t Referred To Contact [facility] Diagnoses Breast abscess Procedures US BREAST LTD LEFT US BREAST UNI REAL TIME WITH IMAGE LIMITED Marty Patterson APRN.BEER MAKER [address] [place] [address] [facility] [address] [place] [address] Referral ID Status Reason Start Date Expiration Date Visits Requested Visits Authorized [id number] Authorized Auto-Generat ed Referral 4 07/07/2025 1 1 Specialty Diagnoses / Procedures Referred By Contac t Referred To Contact [facility] Diagnoses Breast abscess Procedures MICHAEL DIAGNOSTIC LEFT DIAGNOSTIC MAMMOGRAPHY COMPUTER-AIDED DETCJ UNI AnamMarty ly, JO ANN.BEER MAKER [address] [place] [address] [facility] [address] [place] [address] Referral ID Status Reason Start Date Expiration Date Visits Requested Visits Authorized [id number] Authorized Auto-Generat ed Referral 4 07/07/2025 1 1 Specialty Diagnoses / Procedures Referred By Contac t Referred To Contact [facility] Diagnoses Surveillance of previously prescribed intrauterine contraceptive device Procedures PELVIC US WHI US PELVIC NONOBSTETRIC REAL-TIME IMAGE COMPLETE Marty Patterson APRN.BEER MAKER [address] [place] [address] [facility] [place] [address] [place] [address] Referral ID Status Reason Start Date Expiration Date Visits Requested Visits Authorized [id number] Authorized Auto-Generat ed Referral 4 06/07/2025 1 1 Summary Purpose Family History No Family History Records FoundNo Family History Records FoundNo Family History Records Found Additional Source Comments Goals (unrecognized section and content) Goals may be documented in a n alternate sectionGoals may be documented in an alternate sectionGoals may be documented in an alternate section Care Teams (unrecognized sec tion and content) Team Status: Active Member Role Status Dates Dr. Maryjo Aguiar MD Family Provider Active Dr. Donovan Rodrigues MD Primary Care Provider Active Team Status: Inactive Member Role Status Dates Dr. Maryjo Aguiar MD Primary Care Provider Active Ed Physician Provider Attending Provider, Emergency Pr ovider Active Team Status: Inactive Member Role Status Dates Dr. Donovan Rodrigues MD Primary Care Provider Active Dr. Stu Flores MD Attending Provider, [facility] Provider Active [employer] Relationship Specialty Start Date End Date Donovan Rodrigues [address] [place] [address] PCP - General Family Medicine 01/01/19 [employer] Relationship Specialty Start Date End Date Donovan Rodrigues MD [address] [place] [address] PCP - General Family Medicine 01/01/19 [employer] Relationship Specialty Start Date End Date Sara Gilmore [address] [place] [address] PCP - General Family Medicine 02/15/24 [employer] Relationship Specialty Start Date End Date Sara Gilmore [address] [place] [address] PCP - General Family Medicine 02/15/24 [employer] Relationship Specialty Start Date End Date Sara Gilmore [address] [place] [address] PCP - General Family Medicine 02/15/24 [employer] Relationship Specialty Start Date End Date Sara Gilmore [address] [place] [address] PCP - General Family Medicine 02/15/24 [employer] Relationship Specialty Start Date End Date Sara Gilmore [address] [place] [address] PCP - General Family Medicine 02/15/24 [employer] Relationship Specialty Start Date End Date Sara Gilmore [address] [place] [address] PCP - General Family Medicine 02/15/24 [employer] Relationship Specialty Start Date End Date Sara Gilmore [address] [place] [address] PCP - General Family Medicine 02/15/24 [employer] Relationship Specialty Start Date End Date Sara Gilmore [address] [place] [address] PCP - General Family Medicine 02/15/24 [employer] Relationship Specialty Start Date End Date Sara Gilmore [address] [place] [address] PCP - General Family Medicine 02/15/24 [employer] Relationship Specialty Start Date End Date Sara Gilmore [address] [place] [address] PCP - General Family Medicine 02/15/24 [employer] Relationship Specialty Start Date End Date Sara Gilmore [address] [place] [address] PCP - General Family Medicine 02/15/24 [employer] Relationship Specialty Start Date End Date Sara Gilmore [address] [place] [address] PCP - General Family Medicine 02/15/24 [employer] Relationship Specialty Start Date End Date Sara Gilmore [address] [place] [address] PCP - General Family Medicine 02/15/24 [employer] Relationship Specialty Start Date End Date Sara Gilmore [address] [place] [address] PCP - General Family Medicine 02/15/24 [employer] Relationship Specialty Start Date End Date Sara Gilmore [address] [place] [address] PCP - General Family Medicine 02/15/24 Team Status: Active Member Role Status Dates Dr. Loi Tran MD Primary Care Provider Active Team Status: Inactive Member Role Status Dates Dr. Loi Tran MD Primary Care Provider Active Start: December 30, 2024 End: December 30, 2024 Dr. Loi Tran MD Attending Provider Active St art: December 30, 2024 End: December 30, 2024 Dr. Loi Tran MD Referring Provider Active St art: December 30, 2024 End: December 30, 2024 Source Comments (unrecognize d section and content) In the event this informatio n is protected by the Federal Confidentiality of Alcohol and Drug Abuse Patient Records regulations: The Federal rules restrict any use of the information to criminally investigate or prosecute any alcohol or drug abuse patient.[facility] the event this information is protected by the Federal Confidentiality of Alcohol and Drug Abuse Patient Records regulations: The Federal rules restrict any use of the information to criminally investigate or prosecute any alcohol or drug abuse patient.[facility] the event this information is protected by the Federal Confidentiality of Alcohol and Drug Abuse Patient Records regulations: The Federal rules restrict any use of the information to criminally investigate or prosecute any alcohol or drug abuse patient.[facility] the event this information is protected by the Federal Confidentiality of Alcohol and Drug Abuse Patient Records regulations: The Federal rules restrict any use of the information to criminally investigate or prosecute any alcohol or drug abuse patient.[facility] the event this information is protected by the Federal Confidentiality of Alcohol and Drug Abuse Patient Records regulations: The Federal rules restrict any use of the information to criminally investigate or prosecute any alcohol or drug abuse patient.[facility] the event this information is protected by the Federal Confidentiality of Alcohol and Drug Abuse Patient Records regulations: The Federal rules restrict any use of the information to criminally investigate or prosecute any alcohol or drug abuse patient.[facility] the event this information is protected by the Federal Confidentiality of Alcohol and Drug Abuse Patient Records regulations: The Federal rules restrict any use of the information to criminally investigate or prosecute any alcohol or drug abuse patient.[facility] CenterIn the event this information is protected by the Federal Confidentiality of Alcohol and Drug Abuse Patient Records regulations: The Federal rules restrict any use of the information to criminally investigate or prosecute any alcohol or drug abuse patient.[facility] CenterIn the event this information is protected by the Federal Confidentiality of Alcohol and Drug Abuse Patient Records regulations: The Federal rules restrict any use of the information to criminally investigate or prosecute any alcohol or drug abuse patient.[facility] CenterIn the event this information is protected by the Federal Confidentiality of Alcohol and Drug Abuse Patient Records regulations: The Federal rules restrict any use of the information to criminally investigate or prosecute any alcohol or drug abuse patient.[facility] CenterIn the event this information is protected by the Federal Confidentiality of Alcohol and Drug Abuse Patient Records regulations: The Federal rules restrict any use of the information to criminally investigate or prosecute any alcohol or drug abuse patient.[facility] CenterIn the event this information is protected by the Federal Confidentiality of Alcohol and Drug Abuse Patient Records regulations: The Federal rules restrict any use of the information to criminally investigate or prosecute any alcohol or drug abuse patient.[facility] CenterIn the event this information is protected by the Federal Confidentiality of Alcohol and Drug Abuse Patient Records regulations: The Federal rules restrict any use of the information to criminally investigate or prosecute any alcohol or drug abuse patient.[facility] CenterIn the event this information is protected by the Federal Confidentiality of Alcohol and Drug Abuse Patient Records regulations: The Federal rules restrict any use of the information to criminally investigate or prosecute any alcohol or drug abuse patient.[facility] CenterIn the event this information is protected by the Federal Confidentiality of Alcohol and Drug Abuse Patient Records regulations: The Federal rules restrict any use of the information to criminally investigate or prosecute any alcohol or drug abuse patient.[facility] CenterIn the event this information is protected by the Federal Confidentiality of Alcohol and Drug Abuse Patient Records regulations: The Federal rules restrict any use of the information to criminally investigate or prosecute any alcohol or drug abuse patient.[facility] CenterIn the event this information is protected by the Federal Confidentiality of Alcohol and Drug Abuse Patient Records regulations: The Federal rules restrict any use of the information to criminally investigate or prosecute any alcohol or drug abuse patient.[facility] CenterIn the event this information is protected by the Federal Confidentiality of Alcohol and Drug Abuse Patient Records regulations: The Federal rules restrict any use of the information to criminally investigate or prosecute any alcohol or drug abuse patient.[facility] CenterIn the event this information is protected by the Federal Confidentiality of Alcohol and Drug Abuse Patient Records regulations: The Federal rules restrict any use of the information to criminally investigate or prosecute any alcohol or drug abuse patient.[facility] CenterIn the event this information is protected by the Federal Confidentiality of Alcohol and Drug Abuse Patient Records regulations: The Federal rules restrict any use of the information to criminally investigate or prosecute any alcohol or drug abuse patient.[facility] Reason for Visit (unrecogniz ed section and content) Reason Comments Eye: Foreign Body OS left eye red and wa tering, ? foreign body x last night Specialty Diagnoses / Procedures Referred By Yoselyn lee Referred To Contact [facility] Diagnoses left eye Procedures NEW SAME DAY [facility] [address] [address] [place] [address] Referral ID Status Reason Start Date Expiration Date V isits Requested Visits Authorized [id number] Outside PCP 12/04/2022 02/02/2023 1 1 Reason Onset Date Comments Weight Management 01/16/2024 Reason Comments Weight Management Reason Comments Well Woman Reason Onset Date Comments Insertion Of IUD 04/24/2024 Specialty Diagnoses / Procedures Referred By Yoselyn lee Referred To Contact [facility] Diagnoses General counseling and advice for contraceptive management Encounter for insertion of intrauterine contraceptive device Encounter for removal of intrauterine contraceptive device Procedures INSERT INTRAUTERINE DEVICE LEVONORGESTREL IU 52MG 5 YR INSERT INTRAUTERINE DEVICE REMOVE INTRAUTERINE DEVICE Sara Bergeron, JO ANN.BEER MAKER [address] [place] [address] [facility] [address] [place] [address] Referral ID Status Reason Start Date Expiration Date Visits Requested Visits Authorized [id number] Authorized Auto-Generat ed Referral 03/18/2024 08/20/2024 1 22 Reason Comments Radiology US Specialty Diagnoses / Procedures Referred By Contac t Referred To Contact [facility] Diagnoses Mass of upper inner quadrant of left breast Procedures US BREAST LTD LEFT US BREAST UNI REAL TIME WITH IMAGE LIMITED Sara Bergeron, POULTRY PROCESSOR.BEER MAKER [address] [place] [address] [facility] [address] [place] [address] Referral ID Status Reason Start Date Expiration Date V isits Requested Visits Authorized [id number] Closed Auto-Generate d Referral 03/15/2024 04/14/2025 1 1 Reason Comments Consult Left breast abscess vs. Cyst. Specialty Diagnoses / Procedures Referred By Contac t Referred To Contact General Surgery Diagnoses Breast abscess Procedures CONSULT TO GENERAL SURGERY OFFICE/OUTPATIENT [facility] 60 MINUTES Marty Patterson, POULTRY PROCESSOR.BEER MAKER [address] [place] [address] Referral ID Status Reason Start Date Expiration Date V isits Requested Visits Authorized [id number] Closed PCP Requested Referral 06/07/2024 06/07/2025 1 1 Reason Comments Follow Up Reason Comments Follow Up Left breast infected sebaceous cyst Reason Comments Procedure Excision of skin cys t of left breast. INFORMATION SOURCE (unrecogn ized section and content) DATE CREATED AUTHOR 11/17/2024 [facility] DATE CREATED AUTHOR AUTHOR'S ORGANIZ ATION 12/15/2024 [facility] DATE CREATED AUTHOR AUTHOR'S ORGANIZ ATION 01/03/2025 [facility] FOR RECORDS PERTAINING TO PATIENTS WHO ARE OR HAVE BEEN ENROLLED IN A CHEMICAL DEPENDENCY/SUBSTANCEABUSE PROGRAM, SOME INFORMATION MAY BE OMITTED. This clinical summary was aggregated from multiple sources. Caution should be exercised in using it in the provision of clinical care. This summary normalizes information from multiple sources, and as a consequence, information in this document may materially change the coding, format and clinical context of patient data. In addition, data may be omitted in some cases. CLINICAL DECISIONS SHOULD BE BASED ON THE PRIMARY CLINICAL RECORDS. [facility] [employer] [facility]. provides no warranty or guarantee of the accuracy or completeness of information in this document.
[2025-02-03 12:08] LABS: ANTINUCLEAR ANTIBODIES DIRECT Negative (Negative)
== END | disposition home or self-care (01) ==
LOC: MFPLAB 12:26
PROVIDERS: PCP Family Medicine; Referring Provider Family Medicine; Visit Provider Family Medicine
DX: M25.50 Pain in unspecified joint (principal)
CPT/HCPCS: 36415; 80053; 82306; 83036; 84443; 85025; 85652; 86038; 86431

== ENCOUNTER → 2025-02-19 | Outpatient (CLI) | payer OTHER, SELFPAY ==
--- NOTE | 2025-02-19 13:58 | VDLE_ITS ---
Reason For Study Reason For Study: Left leg swelling RIGHT LEFT CFV is compressible, spontaneous, phasic, competent GSV is normal. and demonstrates normal augmentation. CFV is compressible, spontaneous, phasic, competent, Procedure and demonstrates normal augmentation. This is a venous duplex using B-mode, color flow and FV is compressible, spontaneous, phasic, competent spectral Doppler. and demonstrates normal augmentation. Exam performed in department. POP V is compressible, spontaneous, phasic, competent A preliminary report was called and/or faxed to and demonstrates normal augmentation. Marc. T/P Trunk is compressible. PTV is compressible. LT PerV is compressible. VL/Venous Duplex US, Unilateral Interpretation Summary Deep veins of the left lower extremity are patent and compressible segmentally. There is no evidence of left lower extremity deep vein thrombosis. The left great saphenous vein appears patent an d compressible segmentally. Ordering Physician: Loi Tran Referring Physician: Loi Tran Performed By: Terrie Connor RVT
--- NOTE | 2025-02-19 14:15 | RAD_ITS ---
PROCEDURE: SHOULDER MIN 2 VIEWS 02/19/2025 REASON FOR EXAM: PAIN TECHNIQUE: SHOULDER MIN 2 VIEWS COMPARISON: None RAD/Shoulder min 2 Views IMPRESSION: Minimal degenerative changes are seen of the left acromioclavicular joint, with out associated joint narrowing. Mild inferior acromial spurring is noted. Mild degenerative changes are seen about the left humeral head greater tuberosity The left glenohumeral joint is unremarkable in appearance. No acute fracture or dislocation is seen Reading Location: [place] [id number]
== END | disposition home or self-care (01) ==
PROVIDERS: PCP Family Medicine; Referring Provider Family Medicine; Visit Provider Family Medicine
DX: M25.512 Pain in left shoulder (principal); M79.89 Other specified soft tissue disorders
CPT/HCPCS: 73030; 93971

== ENCOUNTER 2025-03-06 17:30 | Outpatient (RCR) | payer OTHER, SELFPAY ==
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
--- NOTE | 2025-05-27 11:13 | HP.PT.NRP ---
Patient Information Patient Information: MELANIE REYES was seen in my office for initial evaluation on 02/28/25. The following Plan of Care was established for this patient: POC Established Initial Frequency: 1x/Week Initial Duration: 4 Weeks Anticipated Interventions Patient/Client Instruction: Educate patient on: Condition and Plan of Care For the Purpose of:: To improve self management Therapeutic Exercise to Include: Strength training, Endurance training, Active ROM and Scapular Strength/Stabilization For the Purpose of:: To decrease pain, To increase ROM and To improve muscle performance and motor function Cryotherapy (ice pack, ice massage): Yes For the Purpose of:: To decrease pain Last Seen Last Seen: This patient was last seen in our office . Pertinent comments regarding their Physical therapy will appear below: Pt has not returned for greater than 30 days and is discontinued at this time. At this point I will be discontinuing this patient from physical therapy. I would be happy to see this patient again in the future if found appropriate by the physician. Thank you! Chung Clay, PT, ATC Balance/Gait/Functional tests Balance/Special Test Scores Quick DASH Score: 40.9075
== END 2025-03-06 19:00 | disposition home or self-care (01) ==
LOC: PT 17:30
PROVIDERS: PCP Family Medicine; Referring Provider Family Medicine; Visit Provider Family Medicine
DX: M25.512 Pain in left shoulder (principal)
CPT/HCPCS: 97110; 97161

== ENCOUNTER → 2025-04-08 | Outpatient (CLI) | payer OTHER, SELFPAY ==
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
== END | disposition home or self-care (01) ==
LOC: MRI 16:42
PROVIDERS: PCP Family Medicine; Referring Provider Orthopaedic Surgery Sports Medicine; Visit Provider Orthopaedic Surgery Sports Medicine
DX: M25.512 Pain in left shoulder (principal); M19.012 Primary osteoarthritis, left shoulder
CPT/HCPCS: 73221